=== PATIENT | female | born 1935 | race Caucasian/White ===

== ENCOUNTER → 2020-07-11 10:00 | Outpatient (BNV) | payer MEDICARE, SELFPAY | PROVIDERS: PCP Internal Medicine; Visit Provider Internal Medicine | DX: D47.3 Essential (hemorrhagic) thrombocythemia (principal) | CPT/HCPCS: 99213; 99214; G2211 ==

== ENCOUNTER 2020-12-14 15:17 | Outpatient (REF) | payer MEDICARE, SELFPAY ==
--- NOTE | ~2020-12-14 | US_ITS ---
EXAMINATION: US VENOUS ULTRASOUND WITH DOPPLER LOWER EXTREMITY, LEFT CLINICAL INFORMATION: Left leg swelling COMPARISON: None TECHNIQUE: Ultrasound of the deep veins is performed from the hip to the calf with compression sonography and color and pulse Doppler assessment. Spectral analysis with color-flow imaging is performed. FINDINGS: There is normal venous compression and respiratory variation and augmented flow. The visualized common femoral vein, superficial femoral vein, profunda femoral vein, popliteal vein, and the trifurcation region shows no evidence of deep venous thrombosis. There is a 2.8 x 1.2 x 2.2 cm significant popliteal fossa cyst. US/US venous duplex LE LT IMPRESSION: No DVT demonstrated in the left lower extremity. Small Carlson's cyst.
== END 2020-12-14 15:18 | disposition home or self-care (01) ==
LOC: HO.US 15:17
PROVIDERS: PCP Internal Medicine; Visit Provider Internal Medicine
DX: M79.89 Other specified soft tissue disorders (principal)
CPT/HCPCS: 93971

== ENCOUNTER 2021-01-29 11:55 | Outpatient (REF) | payer MEDICARE, SELFPAY ==
--- NOTE | ~2021-01-29 | MM_ITS ---
EXAMINATION: MM SCREENING DIGITAL BREAST TOMOSYNTHESIS, BILATERAL CLINICAL INFORMATION: Screening. Asymptomatic. The lifetime risk of breast cancer based on the Tyrer-Cuzick Model is under 2%. COMPARISON: Mammography: 01/24/2020, 10/25/2018, 10/22/2017 TECHNIQUE: Digital breast tomosynthesis is performed in both the craniocaudal and mediolateral oblique views along with computer-aided detection (CAD). Synthesized 2D images are generated from the tomosynthesis. FINDINGS: There are scattered areas of fibroglandular density (ACR BI-RADS breast composition Category b). Parenchymal pattern is similar to prior studies. There is no interval mass or architectural abnormality or abnormal calcifications. Again, there are multiple bilateral ductal secretory calcifications as well as scattered round and vascular calcifications. There is chronic bilateral nipple retraction. The axilla are unremarkable. There are no significant changes from prior studies. MM/MM tomosynthesis screening BI IMPRESSION: No mammographic evidence of malignancy. ASSESSMENT: BI-RADS 2: Benign RECOMMENDATION: Routine annual mammography screening. This patient's information was entered into a reminder system with a target due date for their next mammogram.
== END 2021-01-29 11:56 | disposition home or self-care (01) ==
LOC: HO.MAMMO 11:55
PROVIDERS: Visit Provider Internal Medicine
DX: Z12.31 Encounter for screening mammogram for malignant neoplasm of breast (principal)
CPT/HCPCS: 77063; 77067

== ENCOUNTER 2022-02-03 11:03 | Outpatient (REF) | payer MEDICARE, SELFPAY ==
--- NOTE | ~2022-02-03 | MM_ITS ---
EXAMINATION: MM SCREENING DIGITAL BREAST TOMOSYNTHESIS, BILATERAL CLINICAL INFORMATION: Screening. Asymptomatic. The lifetime risk of breast cancer based on the Tyrer-Cuzick Model is 1%. COMPARISON: Mammography: 01/29/2021, 01/24/2020, 10/25/2018, 10/22/2017 TECHNIQUE: Digital breast tomosynthesis is performed in both the craniocaudal and mediolateral oblique views along with computer-aided detection (CAD). Synthesized 2D images are generated from the tomosynthesis. FINDINGS: There are scattered areas of fibroglandular density (ACR BI-RADS breast composition Category b). There are no significant masses, abnormal calcifications, or other abnormalities. Again, there are scattered bilateral ductal secretory, vascular, and some round calcifications. There is chronic mild bilateral nipple retraction. No significant changes from prior studies. MM/MM tomosynthesis screening BI IMPRESSION: No mammographic evidence of malignancy. ASSESSMENT: BI-RADS 2: Benign RECOMMENDATION: Routine annual mammography screening. This patient's information was entered into a reminder system with a target due date for their next mammogram.
== END 2022-02-03 11:04 | disposition home or self-care (01) ==
LOC: HO.MAMMO 11:03
PROVIDERS: PCP Internal Medicine; Visit Provider Internal Medicine
DX: Z12.31 Encounter for screening mammogram for malignant neoplasm of breast (principal)
CPT/HCPCS: 77063; 77067

== ENCOUNTER 2022-03-05 10:21 | Outpatient (REF) | payer MEDICARE, SELFPAY ==
--- NOTE | ~2022-03-05 | MM_ITS ---
EXAMINATION: BONE DENSITOMETRY CLINICAL INDICATION: Osteoporosis. COMPARISON: Baseline BD dated 07/18/2019. TECHNIQUE: Using a [employer]Matcher DXA System (software version: 13.1) manufactured by [employer], dual-energy x-ray absorptiometry was performed of the lumbar spine and left hip. The images are of good technical quality. Summary results are attached. FINDINGS: AP SPINE L3-L4 (excluding L1 and L2): The data of L1-L4 has been changed to exclude the L1 and L2 vertebral bodies, because degenerative changes at these levels may cause overestimation of lumbar spine density. Current: BMD 1.147 g/cm2, Z-score 1.1, T-score -0.4, normal, 1.9% increase from baseline (<5% change is not significant). Baseline: BMD 1.126 g/cm2. LEFT FEMUR, NECK: Current: BMD 0.814 g/cm2, Z-score 0.5, T-score -1.6, osteopenia. Baseline: BMD 0.794 g/cm2. LEFT FEMUR, TOTAL: Current: BMD 0.890 g/cm2, Z-score 1.1, T-score -0.9, normal, 1.7% increase from baseline (<5% change is not significant). Baseline: BMD 0.875 g/cm2. IDENTIFIED RISK FACTORS: Osteoporosis, recurrent falls, menopause. HISTORY OF FRACTURE: None listed. MEDICATIONS: Calcium supplements or multivitamin, vitamin D, bisphosphonates. MM/XR DEXA axial skeleton IMPRESSION: 1. DIAGNOSIS: Osteopenia based on the lowest T-score value of -1.6 in the femoral neck applying World Health Organization criteria. 2. 10-YEAR FRACTURE RISK PREDICTION, FRAX: Not performed in this patient on estrogen or bone building treatments. 3. Treatment Recommendations: NOF guidelines recommend consideration for treatment in postmenopausal women and men age 50 and older presenting with the following: -A hip or vertebral (clinical or morphometric) fracture. -T-score less than or equal to -2.5 at the femoral neck or spine after appropriate evaluation to exclude secondary causes. -Low bone mass at the hip or spine and a 10-year fracture probability by FRAX of greater than or equal to 3% for hip fracture or greater than or equal to 20% for major osteoporotic fracture based on the [place] adapted WHO algorithm. 4. Other Recommendations: All treatment decisions require clinical judgment and consideration of individual patient factors, including patient preferences, comorbidities, previous drug use, risk factors not captured in the FRAX model (e.g. frailty, falls, vitamin D deficiency, increased bone turnover, interval significant decline in bone density) and possible under or overestimation of fracture risk by FRAX. Additional medical evaluation for secondary cause of low bone mineral density may be appropriate. FUTURE SCAN RECOMMENDATION: People with diagnosed cases of osteoporosis or at high risk for fracture should have regular bone mineral density tests. For patients eligible for Medicare, routine testing is allowed once every 2 years. The testing frequency can be increased to one year for patients who have rapidly progressing disease, those who are receiving or discontinuing medical therapy to restore bone mass, or have additional risk factors.
== END 2022-03-05 10:22 | disposition home or self-care (01) ==
LOC: HO.MAMMO 10:21
PROVIDERS: PCP Internal Medicine; Visit Provider Internal Medicine
DX: Z13.820 Encounter for screening for osteoporosis (principal); M81.0 Age-related osteoporosis without current pathological fracture; Z78.0 Asymptomatic menopausal state
CPT/HCPCS: 77080

== ENCOUNTER 2022-03-16 13:17 | Emergency (ER) | payer MEDICARE, SELFPAY ==
--- NOTE | ~2022-03-16 | CT_ITS ---
EXAMINATION: CT CERVICAL SPINE WITHOUT CONTRAST CLINICAL INFORMATION: Head and neck pain status post fall COMPARISON: January 20, 2019 TECHNIQUE: CT scan of the cervical spine without intrathecal contrast. Sagittal and coronal reconstructions. This CT examination was performed using dose optimization techniques as appropriate, variously including the following: *Automated exposure control *Adjustment of mA and/or kV according to patient size (this includes techniques or standardized protocols for targeted exams where dose is matched to indication/reason for exam; i.e. extremities or head) *Use of iterative reconstruction technique DLP: 275.94 mGy-cm FINDINGS: No abnormal prevertebral soft tissue swelling is seen. The paraspinal muscle fat planes are maintained. No acute cervical spine fracture is evident. There is significant degenerative disc disease seen C3-C7 with disc space narrowing and marginal sclerosis and spurring as well as some spurring of the joints of [place] with some mild anterior neural foraminal encroachment seen at the C4-C5, C5-C6, and C6-C7 levels on the right and C3-C7 levels on the left. Prominent carotid artery calcification present bilaterally. Emphysematous change noted lung apices. Pterygoid plates intact. Temporomandibular joints intact. Visualized mastoid air cells well aerated. CT/CT cervical spine wo IV con IMPRESSION: Cervical spondylosis as described above without evidence of acute fracture Fleischner guidelines were followed.
--- NOTE | ~2022-03-16 | CT_ITS ---
EXAMINATION: CT FACIAL BONES WITHOUT CONTRAST CLINICAL INFORMATION: Trauma to right orbit with pain status post fall COMPARISON: January 20, 2019 TECHNIQUE: CT facial bones with coronal and sagittal reconstructions. This CT examination was performed using dose optimization techniques as appropriate, variously including the following: *Automated exposure control *Adjustment of mA and/or kV according to patient size (this includes techniques or standardized protocols for targeted exams where dose is matched to indication/reason for exam; i.e. extremities or head) *Use of iterative reconstruction technique DLP: 1338 mGy-cm FINDINGS: There is a right maxillary hematoma. There is a right orbital floor blowout fracture present with disruption of the orbital floor approximately 8 mm in width and width inferior displacement of the most inferior aspect of medial displacement of fragments of approximately 6 mm. Orbital fat is seen herniated through the floor defect in the inferior rectus muscle is directly adjacent to the fracture site and I am suspicious of possible entrapment. There is bowing of the lateral wall of the right ethmoid sinuses/medial wall of the maxillary sinus but without fluid within the ethmoid sinuses and I cannot tell if there is a definite nondisplaced fracture or not. I do not appreciate a ruptured globe. There is some right extraconal fat streaking present. There is some fat streaking seen about the inferior rectus muscle. There is chronic opacification of the left mastoid sinus. Pterygoid plates and temporomandibular joints unremarkable. Frontal and sphenoid sinuses unremarkable. Left ethmoid and sphenoid sinuses unremarkable. Nasal bones and maxillary spine intact. Ostiomeatal complex is patent. CT/CT facial bones wo IV con IMPRESSION: Right orbital floor blowout fracture as described. Question entrapped right inferior rectus muscle..
--- NOTE | ~2022-03-16 | CT_ITS ---
EXAMINATION: CT HEAD WITHOUT CONTRAST CLINICAL INFORMATION: Head and neck pain after fall COMPARISON: January 20, 2019 TECHNIQUE: Contiguous axial imaging was performed from the skull base to vertex without intravenous administration of contrast. This CT examination was performed using dose optimization techniques as appropriate, variously including the following: *Automated exposure control *Adjustment of mA and/or kV according to patient size (this includes techniques or standardized protocols for targeted exams where dose is matched to indication/reason for exam; i.e. extremities or head) *Use of iterative reconstruction technique DLP: 670.81 mGy-cm FINDINGS: No intracranial hemorrhage identified. No significant mass effect or midline structure shift. No abnormal extra-axial fluid collection. Ventricles, sulci, and cisterns unremarkable. Wilson-white matter interface maintained. There is a right orbital floor blowout fracture present which will be described in detail on facial bone study. There is opacification of the left maxillary sinus without orbital fracture appreciated. Mastoid air cells are aerated. Pterygoid plates intact. Temporomandibular joints intact. CT/CT head/brain wo IV con IMPRESSION: No acute intracranial pathology. Right orbital floor fracture.
[2022-03-16 13:19] VITALS: BP 150/51; PULSE 71; RESP 18; TEMP 36.6; O2SAT 98; BMI 27.4
--- NOTE | 2022-03-16 13:27 | ED_ITS ---
HPI - Fall General Chief Complaint: Head Injury Stated Complaint: Fall/Facial inj/ Time Seen by Provider: 03/16/22 13:26 Source: patient Mode of arrival: ambulatory Limitations: no limitations History of Present Illness HPI Narrative: 86 yo female with hx of HTN, takes a baby asa, hx of thrombocytosis on hydroxurea, HTN, HLD here with c/o trip and fall at home hit head and R side of face on stairs, no LOC. c/o pain and nausea. Just happened prior to arrival. complaint: fall Onset (ago): minute(s) (just prior to arrival) Fall from: standing Fall witnessed: no Place fall occurred: home Loss of consciousness: none Prolonged down time: no Symptoms prior to fall: none Context: tripped/slipped Location of injury: head and face Severity: severe Quality: aching Associated symptoms (after fall): headache Related Data Home Medications Medication Instructions Recorded Confirmed aspirin 81 mg tablet,delayed 81 mg PO DAILY 07/11/20 12/04/21 release calcium carbonate 600 mg-vitamin 1 tab PO DAILY 07/11/20 12/04/21 D3 10 mcg (400 unit) tablet (Calcium with Vitamin D) docosahexaenoic acid (dha)-epa 1 cap PO BID 07/11/20 12/04/21 capsule enalapril maleate 5 mg tablet 20 mg PO DAILY 07/11/20 12/04/21 latanoprost 0.005 % eye drops 1 drp ophthalmic (eye) BEDTIME 07/11/20 12/04/21 multivitamin 1 tab PO DAILY 07/11/20 12/04/21 pravastatin 40 mg tablet 1 tab PO DAILY 07/11/20 12/04/21 alendronate 70 mg tablet 70 mg PO QWEEK 01/09/21 12/04/21 amlodipine 5 mg tablet 1 tab PO DAILY 12/04/21 12/04/21 Previous Rx's Medication Instructions Recorded hydroxyurea 500 mg capsule 1 cap PO DAILY #90 caps 01/16/21 amoxicillin 500 mg-potassium 1 tab PO BID 7 days #14 tabs 03/16/22 clavulanate 125 mg tablet (Augmentin) hydrocodone 5 mg-acetaminophen 325 1 tab PO Q6H PRN pain #10 tabs 03/16/22 mg tablet ondansetron 4 mg disintegrating 4 mg PO Q8H PRN nausea and 03/16/22 tablet vomiting #20 tabs Allergies Allergy/AdvReac Type Severity Reaction Status Date / Time hydromorphone [From DILAUDID] Allergy Intermediate ITCHY ALL Verified 07/29/21 11:01 OVER Review of Systems Review of Systems: Constitutional : No Fever, No Chills, No Fatigue ENT/Mouth : No sore throat, No Rhinorrhea Eyes: pos Eye Pain, No Swelling, No Redness Cardiovascular : No Chest Pain, No SOB, No Dyspnea on Exertion Respiratory : No Cough, No Sputum Gastrointestinal : No Nausea, No Vomiting, No Diarrhea, No abdominal Pain Genitourinary : No Dysuria, No Urinary Frequency, No Hematuria, Musculoskeletal : No joint pain, No Myalgias, No Joint Swelling Skin : No Skin Lesions, No rash Neuro : No Weakness, No Numbness, No Dizziness, positive Headache Psych : No Anxiety/Panic, No Depression Heme/Lymph: No Bruising, No Bleeding,No Lymphadenopathy Endocrine : No Polyuria, No Polydipsia All other systems reviewed and are negative [facility] Past Medical History Attestation statement: The following information was validated with the patient. Medical History Chronic dermatitis Dyslipidemia Glaucoma HTN (hypertension) Thrombocytopenia Surgical History History of bilateral knee replacement Hx of partial nephrectomy Family History Family History Mother Breast cancer Brother Alzheimers disease Son Stroke Rectal adenocarcinoma Social History Social History Household Members: Spouse and None Housing: House Alcohol intake: former Patient Tobacco Use Status: Never used Tobacco Advance Directives: Yes Advance Directives Information Provided: Yes Advance Directives on File: No service: No Current occupational status: retired Physical Exam Vital Signs: Vital Signs: Last Vital Signs Temp 98 F 03/16/22 13:19 Pulse 71 03/16/22 13:19 Resp 18 03/16/22 13:19 BP 150/51 H 03/16/22 13:19 Pulse Ox 98 03/16/22 13:19 BMI result Body Mass Index 27.4 Appearance: Alert. Oriented X3. No acute distress. anxious Eyes: Pupils equal, round and reactive to light. R eye moderate subconj hemorrhage, cannot look superiorly on EOM testing states when she does she sees double, no chemosis, states vision is intact can see light, no hyphema noted large hematoma R periorbital area abrasion R upper eyelid - superficial slit 1cm noted, bleeding controlled ENT: Pharynx normal. Neck: Normal inspection. Neck supple. refusing collar CVS: Normal heart rate and rhythm. Pulses normal. Chest: atraumatic Respiratory: No respiratory distress. Breath sounds normal. Abdomen: Soft and non-tender. Skin: Skin warm and dry. Normal skin color. Normal skin turgor. Extremities: No lower extremity edema. No calf ttp no pain to palpation Neuro: Oriented X 3. No motor deficit. No sensory deficit. Course Course Course Narrative: has no neck pain wants collar off states it is making things worse exam concerning for blowout fracture with clinical entrapment will discuss with ophthalmology if we can manage this here. she is NPO since 10am. Dr. Kurtz consulted recommends check pressures, US for retinal detachment, if pressures normal even with blowout fracture and clinical entrapment as long as she is not having double vision looking straight on can have it fixed in 1 week. IPO 05/10/[address] findings [address] Dr. Kurtz recommends follow up in 1 week - patient and family aware of plan, repeat BMP pending. Will sign out to Leonardo DE LEON pending PO challenge, BMP, ambulatory trial family is going to stay with patient Procedures Procedure Narrative Procedure Narrative: bedside US - no retinal detachment seen MDM - Fall MDM Narrative Medical decision making narrative: 86 yo female with hx of HTN, takes a baby asa, hx of thrombocytosis on hydroxurea, HTN, HLD here with c/o R facial injury and head injury after mechanical fall at this time will obtain CT head/facial/cspine, Concern for clinical entrapment as well. Will need glue on superficial linear slit. Dispo per results and findings. Lab Data Result diagrams: 03/16/22 14:25 03/16/22 14:25 Labs: Lab Results 03/16/22 03/16/22 Range/Units 14:25 14:25 WBC 12.6 H (4.8-10.8) X10*3/uL RBC 4.15 L (4.20-5.50) X10*6/uL Hgb 14.0 (12.0-16.0) g/dl Hct 41.9 (37.0-47.0) % MCV 101.0 H (80.0-98.0) fL MCH 33.7 H (27.0-33.0) pg MCHC 33.4 (31.0-35.0) g/dl RDW 12.8 (11.0-16.0) % Plt Count 313 (160-400) X10*3/uL MPV 12.2 (9.4-12.3) fL Immature Gran % (Auto) 0.6 H (0.0-0.4) % Neut % (Auto) 88.6 H (45-73) % Lymph % (Auto) 7.5 L (20-40) % [place] % (Auto) 2.4 (2-11) % Eos % (Auto) 0.5 (0-4) % Baso % (Auto) 0.4 (0-2) % Lymph # (Auto) 0.9 L (1.2-4.9) X10*3/uL [place] # (Auto) 0.3 (0.1-1.2) X10*3/uL Eos # (Auto) 0.1 (0.0-0.4) X10*3/uL Baso # (Auto) 0.1 (0.0-0.2) X10*3/uL Abs Immat Gran (auto) 0.07 H (0.00-0.03) X10*3/uL Absolute Neuts (auto) 11.1 H (2.0-8.3) x10*3/uL Absolute Nucleated RBC 0.000 (0.0-0.012) X10*3/uL Nucleated RBC % (auto) 0.0 (0.0-0.2) /100WBC Sodium 140 (135-145) mmol/L Potassium 5.4 H (3.3-5.1) mmol/L Chloride 112 H (96-108) mmol/L Carbon Dioxide 13 L (22-29) mmol/L Anion Gap 20 (12-20) BUN 31 H D (9-16) mg/dL Creatinine 1.27 (0.5-1.4) mg/dL Estim Creat Clear Calc 29.8 Estimated GFR 40 Random Glucose 116 H (60-115) mg/dL Calcium 9.4 (8.4-10.2) mg/dL Discharge Plan Discharge Clinical Impression: Blow-out fracture of orbital floor, Subconjunctival hemorrhage, Abrasion, Entrapment of extraocular muscle Patient Disposition: Still a Patient Instructions: Facial Fracture (ED), Subconjunctival Hemorrhage (ED) Additional Instructions: return to ED for any worsening symptoms or concerns, stay with family the next 4 days EYE PRESSURE 17/18 YOU NEED TO SEE YOUR EYE DOCTOR THIS WEEK IF YOU CANNOT PLEASE SEE OUR EYE DOCTOR IN [address] KURTZ [phone] LOCATED AT [address] - YOU WILL REQUIRE SURGERY FOR THIS NO NOSE BLOWING, NO BENDING FORWARD, NO STRAINING UNTIL CLEARED TAKE A PROBIOTIC OVER THE COUNTER WHILE ON ANTIBIOTIC FINDINGS: There is a right maxillary hematoma. There is a right orbital floor blowout fracture present with disruption of the orbital floor approximately 8 mm in width and width inferior displacement of the most inferior aspect of medial displacement of fragments of approximately 6 mm. Orbital fat is seen herniated through the floor defect in the inferior rectus muscle is directly adjacent to the fracture site and I am suspicious of possible entrapment. There is bowing of the lateral wall of the right ethmoid sinuses/medial wall of the maxillary sinus but without fluid within the ethmoid sinuses and I cannot tell if there is a definite nondisplaced fracture or not. I do not appreciate a ruptured globe. There is some right extraconal fat streaking present. There is some fat streaking seen about the inferior rectus muscle. There is chronic opacification of the left mastoid sinus. Pterygoid plates and temporomandibular joints unremarkable. Frontal and sphenoid sinuses unremarkable. Left ethmoid and sphenoid sinuses unremarkable. Nasal bones and maxillary spine intact. Ostiomeatal complex is patent. CT/CT facial bones wo IV con IMPRESSION: Right orbital floor blowout fracture as described. ? Question entrapped right inferior rectus muscle.. Prescriptions: New amoxicillin-pot clavulanate [Augmentin] 500-125 mg tablet 1 tab PO BID 7 Days Qty: 14 0RF ondansetron 4 mg tablet,disintegrating 4 mg PO Q8H PRN (Reason: nausea and vomiting) Qty: 20 0RF hydrocodone-acetaminophen 5-325 mg tablet 1 tab PO Q6H PRN (Reason: pain) Qty: 10 0RF Rx Instructions: partial fill okay; Partial Fill upon patient request. No Action multivitamin Tablet 1 tab PO DAILY latanoprost 0.005 % drops 1 drp ophthalmic (eye) BEDTIME enalapril maleate 5 mg tablet 20 mg PO DAILY pravastatin 40 mg tablet 1 tab PO DAILY aspirin [Aspir-81] 81 mg Tablet,Delayed Release (Dr/Ec) 81 mg PO DAILY Fish Oil (with DHA-EPA) Capsule 1 cap PO BID calcium carbonate-vitamin D3 [Calcium with Vitamin D] 600 mg(1,500mg) -400 unit Tablet 1 tab PO DAILY alendronate 70 mg Tablet 70 mg PO QWEEK hydroxyurea 500 mg capsule 1 cap PO DAILY Qty: 90 3RF amlodipine 5 mg tablet 1 tab PO DAILY Referrals: Josias Kurtz [Physician] - 1 week (IF YOU CANNOT SEE YOUR EYE DOCTOR)
[2022-03-16 14:30] LABS: MANUAL DIFF FLAG NO
[2022-03-16 14:31] LABS: Basophils Absolute Auto 0.1 X10*3/uL (0.0-0.2); Basophils Percent Auto 0.4 % (0-2); Eosinophils Absolute Auto 0.1 X10*3/uL (0.0-0.4); Eosinophils Percent Auto 0.5 % (0-4); Hematocrit 41.9 % (37.0-47.0); Imm Gran Abs Auto 0.07 X10*3/uL (0.00-0.03); Imm Gran Pct Auto 0.6 % (0.0-0.4); Lymphocytes Absolute Auto 0.9 X10*3/uL (1.2-4.9); Lymphocytes Percent Auto 7.5 % (20-40); Mean Corpuscular HGB Conc 33.4 g/dl (31.0-35.0); Mean Corpuscular Hemoglobin 33.7 pg (27.0-33.0); Mean Platelet Volume 12.2 fL (9.4-12.3); Monocytes Absolute Auto 0.3 X10*3/uL (0.1-1.2); Monocytes Percent Auto 2.4 % (2-11); Neutrophils Absolute Auto 11.1 x10*3/uL (2.0-8.3); Neutrophils Percent Auto 88.6 % (45-73); Platelet Count 313 X10*3/uL (160-400); Red Blood Count 4.15 X10*6/uL (4.20-5.50); Red Cell Distribution Width 12.8 % (11.0-16.0); White Blood Count 12.6 X10*3/uL (4.8-10.8)
[2022-03-16] MEDS: ondansetron HCL 4 MG/2 ML VIAL IVPUSH (14:31)
[2022-03-16] MEDS: Morphine Sulfate 2 MG/ML CARTRIDGE IVPUSH (14:31)
[2022-03-16] MEDS: Tetracaine HCl/PF 0.5% Oph Sol 4 ML DROPS 1 DROP EYE-RIGHT (14:35)
[2022-03-16 15:21] LABS: Anion Gap 20 (12-20); Blood Urea Nitrogen 31 mg/dL (9-16); Calcium 9.4 mg/dL (8.4-10.2); Carbon Dioxide 13 mmol/L (22-29); Chloride 112 mmol/L (96-108); Creatinine Clr Calc Pharmacy 29.8; Estimated Glomerular Filt Rate 40; Glucose Random 116 mg/dL (60-115); Potassium 5.4 mmol/L (3.3-5.1); Sodium 140 mmol/L (135-145)
--- NOTE | 2022-03-16 17:16 | PC.NURSE ---
pt oob to BR with assist of 1 d/t limited vision in right eye. pt walked with steady gait, able to toilet self independently. Walked back to room w/o dizziness, pt back in bed resting comfortably call davis within reach
--- NOTE | 2022-03-16 17:47 | PC.NURSE ---
spoke with pt re: discharge plan- sts that her HCP, Marilynn (st bedside) will be staying with pt overnight for the next 2 nights. educated pt on the importance of not straining for any reason until evaluated by eye including bowel movements, encouraged pt to use colace to soften stool, pt verbalizes understanding. pt alert and oriented, drinking star inés, no c/o nausea/dizziness
[2022-03-16 17:50] LABS: Anion Gap 21 (12-20); Blood Urea Nitrogen 30 mg/dL (9-16); Calcium 8.9 mg/dL (8.4-10.2); Carbon Dioxide 9 mmol/L (22-29); Chloride 113 mmol/L (96-108); Creatinine Clr Calc Pharmacy 32.3; Estimated Glomerular Filt Rate 44; Glucose Random 114 mg/dL (60-115); Potassium 5.3 mmol/L (3.3-5.1); Sodium 138 mmol/L (135-145)
[2022-03-16] MEDS: 0.9 % Sodium Chloride 1,000 ML 999 ML IV ×2 (18:23→21:02)
[2022-03-16 18:32] LABS: C Reactive Protein 0.05 mg/dL (< or = 0.50)
[2022-03-16 19:14] LABS: Venous Blood Gas Refer to POC result
[2022-03-16 19:17] LABS: VBG Base Excess -5.2 mmol/L; VBG HCO3 19 mmol/L (22-26); VBG pCO2 35 mmHg; VBG pH 7.34 (7.32-7.43); VBG pO2 37 mmHg
[2022-03-16 19:26] LABS: Lactic Acid 1.1 mmol/L (0.5-2.0)
[2022-03-16 19:30] LABS: Anion Gap 17 (12-20); Blood Urea Nitrogen 27 mg/dL (9-16); Calcium 9.5 mg/dL (8.4-10.2); Carbon Dioxide 19 mmol/L (22-29); Chloride 110 mmol/L (96-108); Creatinine Clr Calc Pharmacy 31.5; Estimated Glomerular Filt Rate 43; Glucose Random 142 mg/dL (60-115); Potassium 4.9 mmol/L (3.3-5.1); Sodium 141 mmol/L (135-145)
[2022-03-16 19:46] VITALS: BP 151/43; PULSE 78; TEMP 36.7; O2SAT 94
== END 2022-03-16 21:04 | disposition home or self-care (01) ==
PROVIDERS: Internal Medicine; Emergency Provider Emergency Medicine; PCP Internal Medicine
DX: S02.31XA Fracture of orbital floor, right side, initial encounter for closed fracture (principal); S00.81XA Abrasion of other part of head, initial encounter; H11.31 Conjunctival hemorrhage, right eye; M79.10 Myalgia, unspecified site; R51.9 Headache, unspecified; M54.2 Cervicalgia; W01.0XXA Fall on same level from slipping, tripping and stumbling without subsequent striking against object, initial encounter; Y93.9 Activity, unspecified; Y92.9 Unspecified place or not applicable; Y99.9 Unspecified external cause status; Z79.899 Other long term (current) drug therapy
CPT/HCPCS: 36415; 70450; 70486; 72125; 80048; 82803; 83605; 85025; 86140; 96374; 99283; 99284; J0690; J2270; J2405

== ENCOUNTER 2023-02-04 09:35 | Outpatient (REF) | payer MEDICARE, SELFPAY ==
[2023-02-04 12:46] LABS: Anion Gap 12 (12-20); Blood Urea Nitrogen 21 mg/dL (9-16); Calcium 10.2 mg/dL (8.4-10.2); Carbon Dioxide 26 mmol/L (22-29); Chloride 103 mmol/L (96-108); Estimated Glomerular Filt Rate > 60; Glucose Random 68 mg/dL (60-115); Potassium 4.2 mmol/L (3.3-5.1); Sodium 137 mmol/L (135-145)
[2023-02-04 12:50] LABS: Creatinine Urine 43.95 mg/dL; Microalbum/Creatinine Ratio Ur 45.5 ug/mg cr (<30)
== END 2023-02-04 09:36 | disposition home or self-care (01) ==
LOC: HO.HHCL 09:35
PROVIDERS: Visit Provider Internal Medicine Geriatric Medicine
DX: I12.9 Hypertensive chronic kidney disease with stage 1 through stage 4 chronic kidney disease, or unspecified chronic kidney disease (principal); N18.31 Chronic kidney disease, stage 3a; C44.311 Basal cell carcinoma of skin of nose
CPT/HCPCS: 36415; 80048; 82043; 82570

== ENCOUNTER 2023-02-09 11:02 | Outpatient (REF) | payer MEDICARE, SELFPAY ==
--- NOTE | ~2023-02-09 | MM_ITS ---
EXAMINATION: MM SCREENING DIGITAL BREAST TOMOSYNTHESIS, BILATERAL CLINICAL INFORMATION: Screening. Asymptomatic. COMPARISON: Mammography: 02/03/2022, 01/29/2021, 01/24/2020, 10/25/2018, 10/22/2017 TECHNIQUE: Digital breast tomosynthesis is performed in both the craniocaudal and mediolateral oblique views along with computer-aided detection (CAD). Synthesized 2D images are generated from the tomosynthesis. In addition to standard views, a nipple in profile 3-D right MLO projection was included. FINDINGS: There are scattered areas of fibroglandular density (ACR BI-RADS breast composition Category b). There are both vascular and extensive secretory calcifications in both breasts. Inversion of both nipples is again noted which appears chronic. There are no skin changes. There are no suspicious masses, suspicious grouped calcifications, or areas of architectural distortion in either breast. The parenchymal pattern is stable from prior exams. MM/MM tomosynthesis screening BI IMPRESSION: No mammographic evidence of malignancy. Stable benign findings as detailed. ASSESSMENT: BI-RADS BI-RADS 2 - Benign Findings RECOMMENDATION: Routine annual mammography screening. 1 year F/U This examination should not preclude the clinical evaluation of a suspicious palpable abnormality. This patient's information was entered into a reminder system with a target due date for their next mammogram.
== END 2023-02-09 11:03 | disposition home or self-care (01) ==
LOC: HO.MAMMO 11:02
PROVIDERS: PCP Internal Medicine Geriatric Medicine; Visit Provider Internal Medicine
DX: Z12.31 Encounter for screening mammogram for malignant neoplasm of breast (principal)
CPT/HCPCS: 77063; 77067

== ENCOUNTER → 2023-02-09 11:15 | Outpatient (BNV) | payer MEDICARE, SELFPAY | PROVIDERS: PCP Internal Medicine Geriatric Medicine; Visit Provider Radiology Diagnostic Radiology | DX: Z12.31 Encounter for screening mammogram for malignant neoplasm of breast (principal) | CPT/HCPCS: 77063; 77067 ==

== ENCOUNTER 2023-08-25 09:46 | Outpatient (REF) | payer MEDICARE, SELFPAY ==
[2023-08-25 13:07] LABS: Hemoglobin 13.7 g/dl (12.0-16.0)
[2023-08-25 13:09] LABS: Basophils Absolute Auto 0.1 X10*3/uL (0.0-0.2); Basophils Percent Auto 0.8 % (0-2); Eosinophils Absolute Auto 0.1 X10*3/uL (0.0-0.4); Eosinophils Percent Auto 1.4 % (0-4); Hematocrit 41.5 % (37.0-47.0); Imm Gran Abs Auto 0.24 X10*3/uL (0.00-0.03); Imm Gran Pct Auto 2.6 % (0.0-0.4); Lymphocytes Absolute Auto 1.4 X10*3/uL (1.2-4.9); Lymphocytes Percent Auto 14.9 % (20-40); Mean Corpuscular Hemoglobin 32.5 pg (27.0-33.0); Mean Corpuscular Volume 98.6 fL (80.0-98.0); Monocytes Absolute Auto 0.3 X10*3/uL (0.1-1.2); Monocytes Percent Auto 3.7 % (2-11); Neutrophils Percent Auto 76.6 % (45-73); Platelet Count 230 X10*3/uL (160-400); Red Blood Count 4.21 X10*6/uL (4.20-5.50); Red Cell Distribution Width 14.3 % (11.0-16.0); White Blood Count 9.2 X10*3/uL (4.8-10.8)
[2023-08-25 13:54] LABS: Alanine Aminotransferase 15 U/L (0-31); Albumin Level 4.3 g/dL (3.5-5.0); Alkaline Phosphatase 38 U/L (39-117); Anion Gap 8 (12-20); Aspartate Amino Transferase 19 U/L (5-31); Bilirubin Total 0.5 mg/dL (0.0-1.0); Blood Urea Nitrogen 19 mg/dL (9-16); Calcium 9.3 mg/dL (8.4-10.2); Carbon Dioxide 27 mmol/L (22-29); Chloride 110 mmol/L (96-108); Cholesterol 122 mg/dL (<200); Estimated Glomerular Filt Rate > 60; Glucose Random 83 mg/dL (60-115); HDL Cholesterol 32 mg/dL (>40); LDL Cholesterol Calculated 65 mg/dL (<100); Potassium 4.4 mmol/L (3.3-5.1); Sodium 141 mmol/L (135-145); Total Protein 6.6 g/dL (6.5-8.0); Triglycerides 128 mg/dL (<150)
== END 2023-08-25 09:47 | disposition home or self-care (01) ==
LOC: HO.HHCL 09:46
PROVIDERS: Visit Provider Internal Medicine Geriatric Medicine
DX: I10 Essential (primary) hypertension (principal); D47.3 Essential (hemorrhagic) thrombocythemia
CPT/HCPCS: 36415; 80053; 80061; 85025

== ENCOUNTER 2023-10-09 19:56 | Inpatient (IN) | payer MEDICARE, SELFPAY ==
--- NOTE | ~2023-10-09 | XR_ITS ---
EXAMINATION: XR CHEST CLINICAL INFORMATION: Weakness. COMPARISON: None available. TECHNIQUE: Frontal view of the chest was obtained. FINDINGS: The lung volumes are low. The cardiomediastinal silhouette is within normal limits. There is no focal lung consolidation or pleural effusion. 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 The soft tissues are unremarkable. XR/XR chest 1V IMPRESSION: Low lung volumes. No acute pulmonary disease.
--- NOTE | ~2023-10-09 | CT_ITS ---
EXAMINATION: CT HEAD WITHOUT CONTRAST CT CERVICAL SPINE WITHOUT CONTRAST CLINICAL INFORMATION: Fall. COMPARISON: CT head and cervical spine March 16, 2022 TECHNIQUE: Imaging was performed from the skull base to vertex without intravenous administration of contrast. In addition, helical noncontrast CT imaging was acquired through the cervical spine and source images were reviewed along with axial reconstructions and sagittal and coronal MPRs. [This CT examination was performed using dose optimization techniques as appropriate, variously including the following: *Automated exposure control *Adjustment of mA and/or kV according to patient size (this includes techniques or standardized protocols for targeted exams where dose is matched to indication/reason for exam; i.e. extremities or head) *Use of iterative reconstruction technique] DLP: 1012 mGy-cm FINDINGS: HEAD: No intracranial mass, hemorrhage, or midline shift is visualized. The ventricles and sulci are proportional. No extra-axial collections are identified. Left maxillary sinus nearly entirely opacified. There is thickening of the wall of the left maxillary sinus consistent with a chronic sinusitis disease. Mastoid air cells and middle ear cavities are normally aerated. CERVICAL SPINE: There is no evidence of acute cervical spine fracture. Vertebral bodies remain normal in height. Cervical vertebrae have normal alignment. There is multilevel degenerative spondylosis of the cervical spine with disc height narrowing and endplate spurs and facet joint arthrosis Vascular calcification of the carotid arteries bilaterally. Limited assessment of the lung apices is unremarkable. CT/CT cervical spine wo IV con IMPRESSION: 1. No acute intracranial pathology. 2. No CT evidence of acute cervical spine fracture or traumatic subluxation.
--- NOTE | ~2023-10-09 | CT_ITS ---
EXAMINATION: CT HEAD WITHOUT CONTRAST CT CERVICAL SPINE WITHOUT CONTRAST CLINICAL INFORMATION: Fall. COMPARISON: CT head and cervical spine March 16, 2022 TECHNIQUE: Imaging was performed from the skull base to vertex without intravenous administration of contrast. In addition, helical noncontrast CT imaging was acquired through the cervical spine and source images were reviewed along with axial reconstructions and sagittal and coronal MPRs. [This CT examination was performed using dose optimization techniques as appropriate, variously including the following: *Automated exposure control *Adjustment of mA and/or kV according to patient size (this includes techniques or standardized protocols for targeted exams where dose is matched to indication/reason for exam; i.e. extremities or head) *Use of iterative reconstruction technique] DLP: 1012 mGy-cm FINDINGS: HEAD: No intracranial mass, hemorrhage, or midline shift is visualized. The ventricles and sulci are proportional. No extra-axial collections are identified. Left maxillary sinus nearly entirely opacified. There is thickening of the wall of the left maxillary sinus consistent with a chronic sinusitis disease. Mastoid air cells and middle ear cavities are normally aerated. CERVICAL SPINE: There is no evidence of acute cervical spine fracture. Vertebral bodies remain normal in height. Cervical vertebrae have normal alignment. There is multilevel degenerative spondylosis of the cervical spine with disc height narrowing and endplate spurs and facet joint arthrosis Vascular calcification of the carotid arteries bilaterally. Limited assessment of the lung apices is unremarkable. CT/CT head/brain wo IV con IMPRESSION: 1. No acute intracranial pathology. 2. No CT evidence of acute cervical spine fracture or traumatic subluxation.
[2023-10-09 20:10] VITALS: BP 132/64; BP 140/70; PULSE 81; PULSE 85; RESP 18; TEMP 36.6; O2SAT 96; O2SAT 97; BMI 27.3
--- NOTE | 2023-10-09 20:13 | ECG_ITS ---
Test Reason : fall Blood Pressure : / mmHG Vent. Rate : 080 BPM Atrial Rate : 080 BPM P-R Int : 156 ms QRS Dur : 154 ms QT Int : 438 ms P-R-T Axes : 054 -28 095 degrees QTc Int : 505 ms Normal sinus rhythm Left bundle branch block Abnormal ECG No previous ECGs available Referred By: Davon Spencer Electronically Signed By:JOEY KAUR MD
--- NOTE | 2023-10-09 20:40 | ED_ITS ---
HPI - General Adult General Chief complaint: Fall Stated complaint: fall out of bed last night, found this evening Time Seen by Provider: 10/09/23 20:12 Source: patient, RN notes reviewed and old records reviewed Mode of arrival: EMS Limitations: no limitations History of Present Illness HPI narrative: 88-year-old female presents for evaluation after being found on the ground. The patient reports falling tonight within the last few hours Per EMS, the patient last spoke to family about 24 hours ago EMS states that none of her family or friends were able to reach her all day today and therefore a wellness check was called The patient was found on the ground next to her bed EMS believes the patient was on the ground for about 24 hours but it is unclear as the patient contradicts this story She arrives covered in stool She complains of bilateral knee pain which is chronic. She reports a history of bilateral knee replacements Denies any injury or trauma from the fall She has not sure exactly how she fell but believes it may be related to her chronic knee pain Related Data Home Medications ?Medication ?Instructions ?Recorded ?Confirmed aspirin 81 mg tablet,delayed 81 mg PO DAILY 07/11/20 05/06/23 release calcium carbonate 600 mg-vitamin 1 tab PO DAILY 07/11/20 05/06/23 D3 10 mcg (400 unit) tablet (Calcium with Vitamin D) docosahexaenoic acid (dha)-epa 1 cap PO BID 07/11/20 05/06/23 capsule latanoprost 0.005 % eye drops 1 drp ophthalmic (eye) BEDTIME 07/11/20 05/06/23 multivitamin 1 tab PO DAILY 07/11/20 05/06/23 pravastatin 40 mg tablet 1 tab PO DAILY 07/11/20 05/06/23 alendronate 70 mg tablet 70 mg PO QWEEK 01/09/21 05/06/23 amlodipine 5 mg tablet 10 tab PO DAILY 12/04/21 05/06/23 losartan 50 mg tablet 50 mg PO DAILY 11/05/22 05/06/23 Previous Rx's ?Medication ?Instructions ?Recorded amoxicillin 500 mg-potassium 1 tab PO BID 7 days #14 tabs 03/16/22 clavulanate 125 mg tablet (Augmentin) hydrocodone 5 mg-acetaminophen 325 1 tab PO Q6H PRN pain #10 tabs 03/16/22 mg tablet hydroxyurea 500 mg capsule 1 cap PO DAILY #90 caps 03/26/22 Allergies Allergy/AdvReac Type Severity Reaction Status Date / Time hydromorphone [From DILAUDID] Allergy Intermediate ITCHY ALL Verified 10/09/23 20:22 OVER Review of Systems 2 Constitutional: Constitutional: Denies body ache(s), Denies chills and Denies fever(s) Eyes: Eyes: Denies blurry vision ENT: Denies sore throat Cardiovascular: Cardiovascular: Denies chest pain and Denies dyspnea Respiratory: Respiratory: Denies cough and Denies dyspnea Gastrointestinal: Gastrointestinal: Denies abdominal pain, Denies nausea and Denies vomiting Genitourinary: Genitourinary: Denies difficulty voiding and Denies dysuria Musculoskeletal: Musculoskeletal: Denies back pain, Reports arthralgias, Denies joint swelling and Denies limited range of motion Integumentary/Breasts: Skin/Breast: Denies rash PMFSH Past Medical History Medical History (Updated 10/10/23 @ 01:05 by Davon Spencer) Chronic kidney disease, stage III (moderate) Dyslipidemia Glaucoma HTN (hypertension) Chronic dermatitis Thrombocytopenia Surgical History Hx of partial nephrectomy History of bilateral knee replacement Family History Family History Mother Breast cancer Brother Alzheimers disease Son Stroke Rectal adenocarcinoma Social History Social History Household Members: Spouse and None Housing: House Alcohol intake: former Patient Tobacco Use Status: Never used Tobacco Smoked in Last 30 Days: No Use of substances other than those prescribed or required for medical reasons: No Advance Directives: No Advance Directives Information Provided: No service: No Current occupational status: retired Physical Exam ED Vital Signs: Vital Signs - 24 hr 10/09/23 20:10 10/09/23 22:15 10/09/23 22:50 Temperature 97.9 F 98.5 F Pulse Rate 81 84 81 Respiratory Rate 18 18 Blood Pressure 132/64 144/66 H 135/52 L Pulse Oximetry 96 99 Oxygen Delivery Method Room Air Room Air BMI result Body Mass Index 27.3 Const General: healthy appearing, comfortable, no acute distress, alert and awake Nutritional Appearance: well nourished HENME Head: Yes normocephalic and Yes atraumatic Eyes Eyelids: Yes eyelids normal Conjunctivae: conjunctivae normal Sclerae: sclerae normal Corneas: corneas normal Pupils: Equal, round and reactive pupils present EOM: EOMs intact bilaterally Neck Neck: Yes full ROM Resp Effort & Inspection: normal respiratory effort, able to speak in complete sentences, no audible wheezes and not labored Auscultation: clear to auscultation bilaterally Cardio Rate: regular rate Rhythm: regular rhythm GI Inspection: No distended Palpation (GI): Soft to palpation, not firm, nontender, no guarding and not rigid Back/Spine/Pelvis Cervical Spine: collar present, No Cervical spine tenderness, No step off deformity and No cervical ROM abnormal Skin General skin exam: elasticity normal Neuro Cranial nerves: Yes CN's II-XII intact bilaterally, Yes Equal, round and reactive pupils present and Yes Bilaterally intact EOM present Cognition (Neuro): normal cognition Extrem Other: Patient has surgical scars to the bilateral knees. No significant erythema, edema or wounds. She has no tenderness with manipulation of the hips bilaterally. She is able to flex and extend the lower extremities bilaterally without any pain Course Reevaluation(s) Reevaluation #1: Received critical from the lab the patient's troponin is elevated to 2412. I immediately re-evaluated the patient, she continues to deny any chest pain, shortness of breath or any other discomfort outside of her knees. I ordered a repeat EKG. I ordered a full-dose aspirin. Will discuss with Cardiology. Likely plan to start heparin and admit the patient. Time: 21:51 Reevaluation #2: Discussed with Dr. Keating you recommend starting heparin drip, agrees with aspirin and recommend starting beta-deng and statin. I ordered the heparin, aspirin, metoprolol and atorvastatin. I ordered a repeat troponin the patient will likely be admitted to the medical service Time: 21:55 Medications Administered Generic Name Dose Route Start Last Admin Trade Name Freq PRN Reason Stop Dose Admin Heparin Sodium/Sodium Chloride 25,000 unit in 250 mls @ 0 mls/hr 10/09/23 22:00 10/09/23 23:25 Heparin Sodium,Porcine/1/2ns IVCONT 12 units/kg/hr .Q0M KRISTIE 8.14 mls/hr Administration Protocol Per Protocol Discontinued Medications Generic Name Dose Route Start Last Admin Trade Name Freq PRN Reason Stop Dose Admin Aspirin 324 mg 10/09/23 21:42 10/09/23 22:15 Aspirin 81 Mg Tab.Chew PO 10/09/23 21:43 324 mg ONCE ONE Administration Atorvastatin Calcium 80 mg 10/09/23 21:53 10/09/23 22:16 Atorvastatin Calcium 80 Mg Tablet PO 10/09/23 21:54 80 mg ONCE ONE Administration Heparin Sodium (Porcine) 4,000 unit 10/09/23 23:39 10/09/23 23:59 Heparin Sodium,Porcine 5,000 Unit/Ml Vial IVPUSH 10/09/23 23:40 4,000 unit ONCE ONE Administration Ceftriaxone Sodium 1 gm/ 50 mls @ 100 mls/hr 10/10/23 00:24 10/10/23 00:45 Sodium Chloride IV 10/10/23 00:53 100 mls/hr ONCE ONE Administration Metoprolol Succinate 25 mg 10/09/23 21:53 10/09/23 22:15 Metoprolol Succinate Er 25 Mg Tab.Er.24h PO 10/09/23 21:54 25 mg ONCE ONE Administration Protocol Medical Decision Making Medical Decision Making MDM Narrative: 88-year-old female presents for evaluation after a fall. It is believed that she was on the ground for over 24 hours as nobody was able to get in touch with her today. She reports only falling today but it is unclear how reliable her history is. Plan for medical workup including labs with CPK, EKG, CT brain, cervical spine. Will get a UA as well. Differential Diagnosis Differential Diagnoses: The differential diagnosis associated with the presentation includes Mechanical fall Metabolic encephalopathy UTI Intracranial hemorrhage Cervical fracture Cervical strain Rhabdomyolysis Admission/Observation Consideration of admission/observation: Escalation of care including admission/observation considered Consult Healthcare Provider Management of the patient was discussed with: System Auditor (Dr. Keating, cardiology) Lab Data 10/09/23 20:41 10/09/23 20:41 Labs: Lab Results 10/09/23 10/09/23 10/09/23 Range/Units 20:20 20:41 23:41 WBC 23.5 H (4.8-10.8) X10*3/uL RBC 4.45 (4.20-5.50) X10*6/uL Hgb 14.8 (12.0-16.0) g/dl Hct 42.7 (37.0-47.0) % MCV 96.0 (80.0-98.0) fL MCH 33.3 H (27.0-33.0) pg MCHC 34.7 (31.0-35.0) g/dl RDW 14.3 (11.0-16.0) % Plt Count 357 D (160-400) X10*3/uL MPV 13.0 H (9.4-12.3) fL Immature Gran % (Auto) 2.2 H (0.0-0.4) % Neut % (Auto) 90.3 H (45-73) % Lymph % (Auto) 4.8 L (20-40) % [place] % (Auto) 2.0 (2-11) % Eos % (Auto) 0.2 (0-4) % Baso % (Auto) 0.5 (0-2) % Lymph # (Auto) 1.1 L (1.2-4.9) X10*3/uL [place] # (Auto) 0.5 (0.1-1.2) X10*3/uL Eos # (Auto) 0.0 (0.0-0.4) X10*3/uL Baso # (Auto) 0.1 (0.0-0.2) X10*3/uL Abs Immat Gran (auto) 0.51 H (0.00-0.03) X10*3/uL Absolute Neuts (auto) 21.3 H (2.0-8.3) x10*3/uL Absolute Nucleated RBC 0.000 (0.0-0.012) X10*3/uL Nucleated RBC % (auto) 0.0 (0.0-0.2) /100WBC Smear Tech's Comments VERIFIED PT 12.1 (11.1-13.3) SEC INR 1.0 (0.9-1.1) APTT 35.6 (26.0-36.8) SEC Sodium 145 (135-145) mmol/L Potassium 4.5 (3.3-5.1) mmol/L Chloride 109 H (96-108) mmol/L Carbon Dioxide 21 L (22-29) mmol/L Anion Gap 20 (12-20) BUN 25 H (9-16) mg/dL Creatinine 1.10 (0.5-1.4) mg/dL Estim Creat Clear Calc 33.1 Estimated GFR 47 POC Glucose 171 H (60-115) mg/dL Random Glucose 176 H (60-115) mg/dL Calcium 9.8 (8.4-10.2) mg/dL Total Bilirubin 0.6 (0.0-1.0) mg/dL AST 32 H (5-31) U/L ALT 20 (0-31) U/L Alkaline Phosphatase 43 (39-117) U/L Total Creatine Kinase 165 H (26-140) U/L Troponin I High Sens 2412.2 H* 3228.9 H* (<3.5-17.0) ng/L Total Protein 7.1 (6.5-8.0) g/dL Albumin 4.6 (3.5-5.0) g/dL Lipase 9 (8-78) U/L Urine Color Urine Appearance Urine pH (5.0-9.0) Ur Specific [place] (1.005-1.025) Urine Protein (Neg-Trace) mg/dL Urine Glucose (UA) (Negative) mg/dL Urine Ketones (Negative) mg/dL Urine Blood (Negative) Urine Nitrite (Negative) Ur Leukocyte Esterase (Negative) Urine RBC (0-2) /HPF Urine WBC (0-5) /HPF Urine WBC Clumps Ur Squamous Epith Cells (0-2) /HPF Urine Bacteria (None Seen) Hyaline Casts (0-2) /LPF 10/09/23 Range/Units 23:57 WBC (4.8-10.8) X10*3/uL RBC (4.20-5.50) X10*6/uL Hgb (12.0-16.0) g/dl Hct (37.0-47.0) % MCV (80.0-98.0) fL MCH (27.0-33.0) pg MCHC (31.0-35.0) g/dl RDW (11.0-16.0) % Plt Count (160-400) X10*3/uL MPV (9.4-12.3) fL Immature Gran % (Auto) (0.0-0.4) % Neut % (Auto) (45-73) % Lymph % (Auto) (20-40) % [place] % (Auto) (2-11) % Eos % (Auto) (0-4) % Baso % (Auto) (0-2) % Lymph # (Auto) (1.2-4.9) X10*3/uL [place] # (Auto) (0.1-1.2) X10*3/uL Eos # (Auto) (0.0-0.4) X10*3/uL Baso # (Auto) (0.0-0.2) X10*3/uL Abs Immat Gran (auto) (0.00-0.03) X10*3/uL Absolute Neuts (auto) (2.0-8.3) x10*3/uL Absolute Nucleated RBC (0.0-0.012) X10*3/uL Nucleated RBC % (auto) (0.0-0.2) /100WBC Smear Tech's Comments PT (11.1-13.3) SEC INR (0.9-1.1) APTT (26.0-36.8) SEC Sodium (135-145) mmol/L Potassium (3.3-5.1) mmol/L Chloride (96-108) mmol/L Carbon Dioxide (22-29) mmol/L Anion Gap (12-20) BUN (9-16) mg/dL Creatinine (0.5-1.4) mg/dL Estim Creat Clear Calc Estimated GFR POC Glucose (60-115) mg/dL Random Glucose (60-115) mg/dL Calcium (8.4-10.2) mg/dL Total Bilirubin (0.0-1.0) mg/dL AST (5-31) U/L ALT (0-31) U/L Alkaline Phosphatase (39-117) U/L Total Creatine Kinase (26-140) U/L Troponin I High Sens (<3.5-17.0) ng/L Total Protein (6.5-8.0) g/dL Albumin (3.5-5.0) g/dL Lipase (8-78) U/L Urine Color Yellow Urine Appearance Turbid Urine pH 5.5 (5.0-9.0) Ur Specific [place] 1.020 (1.005-1.025) Urine Protein 30 (1+) H (Neg-Trace) mg/dL Urine Glucose (UA) Negative (Negative) mg/dL Urine Ketones 40 (Negative) mg/dL Urine Blood Trace H (Negative) Urine Nitrite Positive H (Negative) Ur Leukocyte Esterase Large (3+) H (Negative) Urine RBC 0-2 (0-2) /HPF Urine WBC >50 H (0-5) /HPF Urine WBC Clumps Present Ur Squamous Epith Cells 0-2 (0-2) /HPF Urine Bacteria 4+ (None Seen) Hyaline Casts 6-10 (0-2) /LPF Independent Interpretation I performed an independent interpretation of an: EKG Interpretation: Sinus rhythm with a rate of 80 beats per minute. Left bundle branch block. No previous for comparison Discharge Plan Discharge Clinical Impression: Fall, Non-ST elevation UT (NSTEMI), Urinary tract infection Patient Disposition: Admitted As Inpatient Print Language: [place]
[2023-10-09 20:54] LABS: Basophils Absolute Auto 0.1 X10*3/uL (0.0-0.2); Basophils Percent Auto 0.5 % (0-2); Eosinophils Percent Auto 0.2 % (0-4); Hematocrit 42.7 % (37.0-47.0); Hemoglobin 14.8 g/dl (12.0-16.0); Imm Gran Abs Auto 0.51 X10*3/uL (0.00-0.03); Imm Gran Pct Auto 2.2 % (0.0-0.4); Lymphocytes Absolute Auto 1.1 X10*3/uL (1.2-4.9); Lymphocytes Percent Auto 4.8 % (20-40); MANUAL DIFF FLAG SCAN; Mean Corpuscular HGB Conc 34.7 g/dl (31.0-35.0); Mean Corpuscular Hemoglobin 33.3 pg (27.0-33.0); Monocytes Absolute Auto 0.5 X10*3/uL (0.1-1.2); Neutrophils Absolute Auto 21.3 x10*3/uL (2.0-8.3); Neutrophils Percent Auto 90.3 % (45-73); Platelet Count 357 X10*3/uL (160-400); Red Blood Count 4.45 X10*6/uL (4.20-5.50); Red Cell Distribution Width 14.3 % (11.0-16.0); SCAN SMEAR FLAG 1
[2023-10-09 21:03] LABS: Prothrombin Time 12.1 SEC (11.1-13.3)
[2023-10-09 21:11] LABS: Alanine Aminotransferase 20 U/L (0-31); Albumin Level 4.6 g/dL (3.5-5.0); Alkaline Phosphatase 43 U/L (39-117); Anion Gap 20 (12-20); Aspartate Amino Transferase 32 U/L (5-31); Bilirubin Total 0.6 mg/dL (0.0-1.0); Blood Urea Nitrogen 25 mg/dL (9-16); Calcium 9.8 mg/dL (8.4-10.2); Carbon Dioxide 21 mmol/L (22-29); Chloride 109 mmol/L (96-108); Creatinine Clr Calc Pharmacy 33.1; Estimated Glomerular Filt Rate 47; Glucose Random 176 mg/dL (60-115); Lipase 9 U/L (8-78); Potassium 4.5 mmol/L (3.3-5.1); Sodium 145 mmol/L (135-145); Total Protein 7.1 g/dL (6.5-8.0)
[2023-10-09 21:23] LABS: Glucose, Whole Blood 171 mg/dL (60-115)
[2023-10-09 21:24] LABS: SLIDE REVIEW VERIFIED; White Blood Count 23.5 X10*3/uL (4.8-10.8)
--- NOTE | 2023-10-09 21:42 | ECG_ITS ---
Test Reason : Elevated troponin Blood Pressure : / mmHG Vent. Rate : 083 BPM Atrial Rate : 083 BPM P-R Int : 162 ms QRS Dur : 156 ms QT Int : 424 ms P-R-T Axes : 062 -33 096 degrees QTc Int : 498 ms Normal sinus rhythm Left axis deviation Left bundle branch block Abnormal ECG When compared with ECG of 09-OCT-2023 20:29, No significant change was found Referred By: Davon Spencer Electronically Signed By:JOEY KAUR MD
[2023-10-09 22:15] VITALS: BP 144/66; PULSE 84
[2023-10-09] MEDS: Metoprolol Succinate ER 25 MG TAB.ER.24H PO (22:15)
[2023-10-09] MEDS: Aspirin 81 MG TAB.CHEW 324 MG PO (22:15)
[2023-10-09] MEDS: Atorvastatin Calcium 80 MG TABLET PO (22:16)
[2023-10-09 22:50] VITALS: BP 135/52; PULSE 81; RESP 18; TEMP 36.9; O2SAT 99
[2023-10-09 22:55] LABS: Partial Thromboplastin Time 35.6 SEC (26.0-36.8)
[2023-10-09] MEDS: Heparin Sodium,Porcine/1/2NS 25,000 UNIT/250 ML IV.SOLN 8.14 UNIT IVCONT (23:25)
[2023-10-09] MEDS: Heparin Sodium,Porcine 5,000 UNIT/ML VIAL 4000 UNIT IVPUSH (23:59)
[2023-10-10] VITALS (11 sets, daily range): BP systolic 117–139; BP diastolic 45–64; PULSE 68–81; RESP 17–22; TEMP 36.6–36.9; O2SAT 95–100
--- NOTE | 2023-10-10 | ECG_ITS ---
Test Reason : Repeat Chest Pressure Blood Pressure : / mmHG Vent. Rate : 069 BPM Atrial Rate : 069 BPM P-R Int : 174 ms QRS Dur : 172 ms QT Int : 512 ms P-R-T Axes : 074 -17 101 degrees QTc Int : 548 ms Normal sinus rhythm Left bundle branch block Abnormal ECG When compared with ECG of 10-OCT-2023 05:26, QT has lengthened Referred By: Megha Ervin Electronically Signed By:JOEY KAUR MD
--- NOTE | 2023-10-10 | ECG_ITS ---
Test Reason : chest pain Blood Pressure : / mmHG Vent. Rate : 074 BPM Atrial Rate : 074 BPM P-R Int : 180 ms QRS Dur : 164 ms QT Int : 436 ms P-R-T Axes : 074 -30 114 degrees QTc Int : 483 ms Normal sinus rhythm Left axis deviation Left bundle branch block Abnormal ECG When compared with ECG of 09-OCT-2023 22:10, No significant change was found Referred By: Iris Santos Electronically Signed By:JOEY KAUR MD
[2023-10-10 00:11] LABS: Appearance Urine Turbid; Color Urine Yellow; Glucose Urine UA Negative (Negative); Leukocyte Esterase Urine Large (3+) (Negative); Nitrite Urine Positive (Negative); PH 5.5 (5.0-9.0); UMIC TRIGGER UACC YES; Urine Blood Trace (Negative); Urine Ketones 40 mg/dL (Negative); Urine Protein 30 (1+) mg/dL (Neg-Trace)
[2023-10-10 00:21] LABS: Bacteria Urine 4+ (None Seen); RBC Urine 0-2 /HPF (0-2); Squamous Epithelial Cell Urine 0-2 /HPF (0-2); UACC Culture Trigger YES; WBC Clumps Urine Present; WBC Urine >50 /HPF (0-5)
[2023-10-10] MEDS: cefTRIAXone sodium 1 GM in 0.9 % Sodium Chloride 50 ML IV ×2 (00:45→20:32)
--- NOTE | 2023-10-10 01:47 | P.HPHOSP_ITS ---
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 by her neighbor. It seems like patient's findings and friends were unable to reach patient and her neighbor who has a coronel to her house checked on her. Patient does not recall falling down and denies any symptoms such as dizziness, headache, chest pain or shortness on breath. She also denied any headache, palpitations, cough, fevers chills. Denied any acute gastrointestinal or genitourinary symptoms. No head trauma reported. She does have some chronic pain to both knees. Patient denies history of cardiac disease, myocardial infarction or arrhythmias. She does not remember ever being told if her ECGs are abnormal. In the ED, she was found to normal vital signs. Blood workup showed leukocytosis of 23.5. There is no lactic acidosis. Hemoglobin is 14.8 and platelets level is 357. There are no significant electrolyte imbalances except for hyperchloremia. Bicarb is 21 and creatinine 1.10. First troponin came back positive, 2412.2 and the 2nd was increased to 3228.9. AST is 32 and the rest of the LFTs are normal. Urinalysis consistent with urinary tract infection. Head CT scan C-spine showed no acute intracranial abnormality or fractures. CXR showed low lung volumes and no acute pulmonary disease. ECGs are consistent with left bundle branch block. ED tx: Heparin bolus and IV infusion, ceftriaxone 1 g IV, atorvastatin 81 mg PO, metoprolol 25 mg PO and aspirin 324 mg PO. Review of Systems 2 Review of Systems: Yes all other systems are reviewed and are negative [facility] Medical History (Updated 10/10/23 @ 02:57 by Iris Santos MD) Chronic kidney disease, stage III (moderate) Dyslipidemia Glaucoma HTN (hypertension) Chronic dermatitis Thrombocytopenia Family History Mother Breast cancer Brother Alzheimers disease Son Stroke Rectal adenocarcinoma Surgical History Hx of partial nephrectomy History of bilateral knee replacement Social History Household Members: Spouse and None Housing: House Alcohol intake: former Patient Tobacco Use Status: Never used Tobacco Smoked in Last 30 Days: No Use of substances other than those prescribed or required for medical reasons: No Advance Directives: No Advance Directives Information Provided: No service: No Current occupational status: retired Meds Allergies Allergy/AdvReac Type Severity Reaction Status Date / Time hydromorphone [From DILAUDID] Allergy Intermediate ITCHY ALL Verified 10/09/23 20:22 OVER Active Medications: Current Medications Acetaminophen (Acetaminophen 325 Mg Tablet) 650 mg PO Q6H PRN PRN Reason: mild pain, headache or fever Aspirin (Aspirin Enteric Coated 81 Mg Tablet.Dr) 81 mg PO DAILY KRISTIE Atorvastatin Calcium (Atorvastatin Calcium 80 Mg Tablet) 80 mg PO BEDTIME [facility] Heparin Sodium (Porcine) (Heparin Sodium,Porcine 5,000 Unit/Ml Vial) 2,700 unit 40 unit/kg (2700 unit) IVPUSH PROTOCOL BOLUS PRN; Protocol PRN Reason: 40 unit/kg - Heparin Protocol Heparin Sodium (Porcine) (Heparin Sodium,Porcine 5,000 Unit/Ml Vial) 5,400 unit 80 unit/kg (5400 unit) IVPUSH PROTOCOL BOLUS PRN; Protocol PRN Reason: 80 unit/kg - Heparin Protocol Heparin Sodium/Sodium Chloride (Heparin Sodium,Porcine/1/2ns) 25,000 unit in 250 mls @ 0 mls/hr IVCONT .Q0M [facility]; Protocol Last Admin: 10/09/23 23:25 Dose: 12 units/kg/hr, 8.14 mls/hr Sodium Chloride (0.9 % Sodium Chloride Flush 3 Ml Syringe) 3 ml IVFLUSH QSHIFT [facility] Home Medications ?Medication ?Instructions ?Recorded ?Confirmed ?Last Taken ?Type aspirin 81 mg tablet,delayed 81 mg PO DAILY 07/11/20 05/06/23 Unknown History release calcium carbonate 600 mg-vitamin 1 tab PO DAILY 07/11/20 05/06/23 Unknown History D3 10 mcg (400 unit) tablet (Calcium with Vitamin D) docosahexaenoic acid (dha)-epa 1 cap PO BID 07/11/20 05/06/23 Unknown History capsule latanoprost 0.005 % eye drops 1 drp ophthalmic (eye) BEDTIME 02/17/21 12/13/23 Unknown History multivitamin 1 tab PO DAILY 07/11/20 05/06/23 Unknown History pravastatin 40 mg tablet 1 tab PO DAILY 07/11/20 05/06/23 Unknown History alendronate 70 mg tablet 70 mg PO QWEEK 01/09/21 05/06/23 Unknown History amlodipine 5 mg tablet 10 tab PO DAILY 12/04/21 05/06/23 Unknown History losartan 50 mg tablet 50 mg PO DAILY 11/05/22 05/06/23 Unknown History Physical Exam 2 Vital Signs and Narrative: Vital Signs: Last Vital Signs Temp 98.5 F 10/10/23 01:07 Pulse 81 10/10/23 01:07 Resp 20 10/10/23 01:07 BP 128/62 10/10/23 01:07 Pulse Ox 97 10/10/23 01:07 O2 Del Method Room Air 10/10/23 01:07 BMI result Body Mass Index 27.3 Constitutional - Awake and Alert, No apparent distress. Cooperative. Pleasant. HEENT - Atraumatic. Normacephalic. Normal sclerae. Heart - S1S2, RRR. Lungs - Normal lung expansion, Normal respiratory effort, No respiratory distress, CTA bilaterally Abdomen - NT / ND; +BS; No rebound or guarding Extremities - no calf tenderness bilaterally, no swelling Musculoskeletal - Normal inspection, normal ROM Skin - Warm/Dry Neurological - Alert & oriented x3. No facial droop. No focal with grossly noted. Normal speech. Psychological - Appropriate affect Results Labs 10/09/23 20:41 10/09/23 20:41 Labs: Laboratory Results - last 24 hr 10/09/23 10/09/23 10/09/23 20:20 20:41 23:41 MCV 96.0 MCH 33.3 H MCHC 34.7 RDW 14.3 Plt Count 357 D MPV 13.0 H Immature Gran % (Auto) 2.2 H Neut % (Auto) 90.3 H Lymph % (Auto) 4.8 L Treasure % (Auto) 2.0 Eos % (Auto) 0.2 Baso % (Auto) 0.5 Lymph # (Auto) 1.1 L Treasure # (Auto) 0.5 Eos # (Auto) 0.0 Baso # (Auto) 0.1 Abs Immat Gran (auto) 0.51 H Absolute Neuts (auto) 21.3 H Absolute Nucleated RBC 0.000 Nucleated RBC % (auto) 0.0 Smear Tech's Comments VERIFIED PT 12.1 INR 1.0 APTT 35.6 Anion Gap 20 Estim Creat Clear Calc 33.1 Estimated GFR 47 POC Glucose 171 H Random Glucose 176 H Calcium 9.8 Total Bilirubin 0.6 AST 32 H ALT 20 Alkaline Phosphatase 43 Total Creatine Kinase 165 H Troponin I High Sens 2412.2 H* 3228.9 H* Total Protein 7.1 Albumin 4.6 Lipase 9 Urine Color Urine Appearance Urine pH Ur Specific [place] Urine Protein Urine Glucose (UA) Urine Ketones Urine Blood Urine Nitrite Ur Leukocyte Esterase Urine RBC Urine WBC Urine WBC Clumps Ur Squamous Epith Cells Urine Bacteria Hyaline Casts 10/09/23 23:57 MCV MCH MCHC RDW Plt Count MPV Immature Gran % (Auto) Neut % (Auto) Lymph % (Auto) Treasure % (Auto) Eos % (Auto) Baso % (Auto) Lymph # (Auto) Treasure # (Auto) Eos # (Auto) Baso # (Auto) Abs Immat Gran (auto) Absolute Neuts (auto) Absolute Nucleated RBC Nucleated RBC % (auto) Smear Tech's Comments PT INR APTT Anion Gap Estim Creat Clear Calc Estimated GFR POC Glucose Random Glucose Calcium Total Bilirubin AST ALT Alkaline Phosphatase Total Creatine Kinase Troponin I High Sens Total Protein Albumin Lipase Urine Color Yellow Urine Appearance Turbid Urine pH 5.5 Ur Specific [place] 1.020 Urine Protein 30 (1+) H Urine Glucose (UA) Negative Urine Ketones 40 Urine Blood Trace H Urine Nitrite Positive H Ur Leukocyte Esterase Large (3+) H Urine RBC 0-2 Urine WBC >50 H Urine WBC Clumps Present Ur Squamous Epith Cells 0-2 Urine Bacteria 4+ Hyaline Casts 6-10 Imaging Radiologist's Impressions: Impressions Cervical Spine CT 10/09/23 20:58 IMPRESSION: 1. No acute intracranial pathology. 2. No CT evidence of acute cervical spine fracture or traumatic subluxation. Head CT 10/09/23 20:58 IMPRESSION: 1. No acute intracranial pathology. 2. No CT evidence of acute cervical spine fracture or traumatic subluxation. Chest X-Ray 10/09/23 21:56 IMPRESSION: Low lung volumes. No acute pulmonary disease. Assessment and Plan (1) Urinary tract infection: Qualifiers: Urinary tract infection type: acute cystitis Hematuria presence: w ithout hematuria Qualified Code(s): N30.00 - Acute cystitis without hematuria Status: Acute (2) Essential thrombocytosis: Status: Chronic (3) ACS (acute coronary syndrome): Status: Acute (4) Chronic kidney disease, stage III (moderate): Qualifiers: Chronic kidney disease stage 3 subtype: stage 3a (GFR 45-59) Qualified Code(s): N18.31 - Chronic kidney disease, stage 3a Status: Acute (5) Dyslipidemia: Status: Acute (6) HTN (hypertension): Qualifiers: Hypertension type: primary hypertension Qualified Code(s): I10 - Essential (primary) hypertension Status: Acute Plan Debbie Tavarez is a 88 y/o woman admitted with: * Acute coronary syndrome. Admit to hospitalist service. Telemetry. Continue tx with ASA 81 mg p.o. daily, metoprolol and high-intensity statin. Continue heparin IV infusion per protocol. Cardiology consult - disscuss with Dr. Keating per ED provider recommending admission, heparin, aspirin and beta blockers. * LBBB. No old ECGs available for comparison. No chest pain. * Urinary tract infection. Continue ceftriaxone 1 g IV daily. Urine culture obtained -will follow results. * Hyperlipidemia. Continue statin. * CKD stage 3A. Continue to monitor renal function. * Essential hypertension. Continue metoprolol. * Essential thrombocytosis. Continue hydroxyurea. Code status: Full DVT prophylaxis: Heparin IV infusion Patient will need hospitalization for at least 2 midnights for ACS therapy with aspirin, heparin IV infusion, statin and beta blockers; and evaluation by subspecialty. Quality Stroke Does the patient have a stroke diagnosis?: No VTE Prior VTE?: No VTE Risk Level:: Medical - moderate - high VTE Device Contraindication: Treatment Not Indicated VTE Drug Contraindication: N/A - Med Ordered
[2023-10-10 02:11] LABS: Lactic Acid 1.3 mmol/L (0.5-2.0)
[2023-10-10 03:55] LABS: B Type Natriuretic Peptide 1615 pg/mL (<100)
[2023-10-10] MEDS: Nitroglycerin 0.4 MG TAB.SUBL SUBLINGUAL ×3 (05:38→05:49)
--- NOTE | 2023-10-10 05:38 | PC.NURSE ---
Pt woke with pain 10/10 mid sternal. MD Shantanu Santos aware, ordered Nitro SL. Pharmacy yet to Activate, ok to give. Gave 1 dose at 0538.
--- NOTE | 2023-10-10 05:44 | PC.NURSE ---
At 0543, pr remains 10/10 mid sternal chest pain, 2nd dose to be admin per orders.
--- NOTE | 2023-10-10 05:48 | PC.NURSE ---
Pt placed on 2L O2 via NC for mild desaturation to 92%.
--- NOTE | 2023-10-10 05:51 | PC.NURSE ---
pt denying relief after Nitro x 3, MD Shantanu Santos notified.
[2023-10-10 05:55] LABS: INTERNATIONAL NORM RATIO 1.1 (0.9-1.1); Prothrombin Time 12.9 SEC (11.1-13.3)
--- NOTE | 2023-10-10 05:55 | PC.NURSE ---
Pt now tating 5/10 pain after Nitro x 3, MD aware, orders pending.
[2023-10-10] MEDS: Morphine Sulfate 2 MG/ML CARTRIDGE IVPUSH (06:00)
[2023-10-10 06:05] LABS: Alanine Aminotransferase 16 U/L (0-31); Alkaline Phosphatase 40 U/L (39-117); Anion Gap 17 (12-20); Aspartate Amino Transferase 33 U/L (5-31); Bilirubin Total 0.5 mg/dL (0.0-1.0); Blood Urea Nitrogen 27 mg/dL (9-16); Calcium 9.5 mg/dL (8.4-10.2); Carbon Dioxide 19 mmol/L (22-29); Chloride 111 mmol/L (96-108); Cholesterol 114 mg/dL (<200); Creatinine Clr Calc Pharmacy 42.8; Estimated Glomerular Filt Rate > 60; Glucose Random 137 mg/dL (60-115); HDL Cholesterol 27 mg/dL (>40); LDL Cholesterol Calculated 60 mg/dL (<100); Potassium 3.8 mmol/L (3.3-5.1); Sodium 143 mmol/L (135-145); Total Protein 6.2 g/dL (6.5-8.0); Triglycerides 136 mg/dL (<150)
[2023-10-10] MEDS: ondansetron HCL 4 MG/2 ML VIAL IVPUSH (06:06)
[2023-10-10 06:10] LABS: PTT Heparin Drip 118.9 SEC (53-77.9)
[2023-10-10 06:11] LABS: Troponin-I High Sensitivity 2689.2 ng/L (<3.5-17.0)
[2023-10-10 06:52] LABS: Basophils Absolute Auto 0.1 X10*3/uL (0.0-0.2); Basophils Percent Auto 0.2 % (0-2); Eosinophils Percent Auto 0.1 % (0-4); Hematocrit 37.5 % (37.0-47.0); Hemoglobin 12.5 g/dl (12.0-16.0); Imm Gran Pct Auto 1.6 % (0.0-0.4); Lymphocytes Percent Auto 4.1 % (20-40); MANUAL DIFF FLAG SCAN; Mean Corpuscular HGB Conc 33.3 g/dl (31.0-35.0); Mean Corpuscular Hemoglobin 32.1 pg (27.0-33.0); Mean Corpuscular Volume 96.2 fL (80.0-98.0); Monocytes Absolute Auto 0.8 X10*3/uL (0.1-1.2); Monocytes Percent Auto 3.1 % (2-11); Neutrophils Absolute Auto 22.6 x10*3/uL (2.0-8.3); Neutrophils Percent Auto 90.9 % (45-73); Platelet Count 281 X10*3/uL (160-400); Red Cell Distribution Width 14.6 % (11.0-16.0); SCAN SMEAR FLAG 1; White Blood Count 24.9 X10*3/uL (4.8-10.8)
--- NOTE | 2023-10-10 07:00 | CA_ITS ---
Transthoracic Echocardiogram Patient (Last, First, Middle): Debbie Tavarez M Gender: Female Date of : 1935 Age: 88 Procedure Date: 10/10/2023 Procedure Type: Transthoracic Echocardiogram Location: ER Height: 157.48 cm Weight: 67.59 kg BSA: 1.69 m2 Heart Rate: bpm BP: 130 / 61 mmHg High Value Associate: Referring MD: Iris Santos MD Roentgenology Teacher: Juan Keating MD Symptoms: Myocardial infarction Study Quality: Adequate ECG Rhythm: Atrial Fibrillation Conclusions: - 1. Severely reduced LV ejection fraction 25- 30% with grade 2 diastolic dysfunction with suggestion of wall motion abnormality in LAD territory 2. Severely dilated left atrium 3. [id number] mitral regurgitation 4. Moderate tricuspid regurgitation next 5. Moderately elevated right ventricular systolic pressure 6. No gross pericardial effusion Findings Procedure Information Contrast agent, definity, is being given per protocol without apparent complications. Left Ventricle Normal left ventricular cavity size. There is mildly increased left ventricular wall thickness. The left ventricular systolic function is severely decreased. The visually estimated ejection fraction is between 25 30%. Spectral Doppler is indicative of a pseudonormal filling pattern. E/E prime ratio is >15, consistent with elevated filling pressures. Evidence suggests grade II (moderate) diastolic dysfunction. Wall Motion Rest Echo Findings The mid anterior and apical septum segments are hypokinetic. The inferoseptal wall, the apex, apical anterior, and mid anteroseptal segments are akinetic. All other scored wall segments showed normal motion. Atria The left atrium is severely dilated. There is no evidence of interatrial shunt. The right atrium is mildly dilated. Aortic Valve Normal aortic valve structure and function. There is no aortic valve stenosis. There is no aortic valve regurgitation. Mitral Valve There is mild anterior and posterior mitral leaflet thickening. There is mild to moderate mitral valve regurgitation. There is no mitral valve stenosis. Pulmonic Valve The pulmonic valve is likely normal. There is trace pulmonic valve regurgitation. Tricuspid Valve Normal tricuspid valve structure. There is moderate tricuspid valve regurgitation. Mildly elevated right atrial pressure. Moderate pulmonary hypertension is present. Great Vessels The pulmonary artery was not well visualized. There is no dilatation of the ascending aorta. Venous The inferior vena cava is mildly dilated and collapses less than 50% with inspiration. Pericardium/Pleural There is no evidence of pericardial effusion. Prior Study Comparison No prior study available for comparison. Measurements 2D Linear Measurements IVSd: 1.21 0.6-0.9/0.6-1.0 cm LVIDd: 4.29 3.9-5.3/4.2-5.9 cm LVIDd Index: 2.54 2.4-3.2/2.2-3.1 cm/m2 LVIDs: 3.42 2.0-3.6 cm LVPWd: 1.23 0.7-1.1 cm Ao Root: 2.70 2.1-3.5 cm LA Diam: 4.60 2.7-3.8/3.0-4.0 cm LAIDs Index: 2.72 1.5-2.3 cm/m2 LV Mass: 234.90 67-162/88-224 g LV Mass Index: 139.00 43-95/49-115 g/m2 LVOT Diam: 2.00 3.0+(-)1.3 cm 2D Systolic Function EF 4C: 29.40 >55% EF 2C: 32.50 >55% Mitral Valve MV Pk E: 0.86 MV PK A: 0.58 MV Decel Time: 202.00 E/A: 1.50 E'Lateral: 6.09 E'Medial: 3.92 E/E' Med: 22.00 E/E' Lat: 14.10 PHT: 59.00 MVA PHT: 3.73 Decel Page: 4.26 MR Vol - PW Dopp: 46.25 MR VTI: 1.85 MR ERO: 25.00 MR Alias Geoffrey: 0.39 MR RAD: 0.70 Aortic Valve AoV Pk Geoffrey: 1.31 AoV Mn Geoffrey: 0.87 AoV VTI: 0.29 AoV Pk Grad: 7.00 Aov Mn Grad: 4.00 BARB Cont.VTI: 2.81 LVOT LVOT Pk Geoffrey: 1.10 LVOT Mn Geoffrey: 0.72 LVOT VTI: 0.26 LVOT Pk Grad: 5.00 LVOT Mn Grad: 3.00 LVOT Diam: 2.00 LVOT Area: 3.14 Diastolic Function MV Pk E: 0.86 MV Pk A: 0.58 E/A: 1.50 E'Medial: 3.92 E/E' Med: 22.00 E' Laterial: 6.09 E/E' Lat: 14.10 Right Ventricle TAPSE (mm): 20.00 TVS' Geoffrey: 12.00 Tricuspid Valve TR Pk Geoffrey: 3.30 TR Pk Grad: 44.00 RA Press: 8.00 RVSP: 52.00 Great Vessels Aorta Ao Root-2D: 2.70 2.0-3.7 cm Ao Asc: 3.10 2.1-3.4 cm Pulmonary Valve PV Pk Geoffrey: 0.73 Peak PV Grad: 2.00 Updated in Other Vendor System with Status of Final Juan Keating MD electronically signed on 10/10/2023 2:45:59 PM with status of Final
[2023-10-10 07:07] LABS: Estimated Average Glucose 97 mg/dL
[2023-10-10 07:25] LABS: SLIDE REVIEW VERIFIED
[2023-10-10 07:38] LABS: PTT Heparin Drip 64.7 SEC (53-77.9)
--- NOTE | 2023-10-10 08:39 | PHA.MEDREC ---
Pharmacy Consult ? Medication Reconciliation Pharmacy has completed the medication reconciliation. Patient states they take hydroxyurea 500 mg TUTHSA.
[2023-10-10] MEDS: Aspirin Enteric Coated 81 MG TABLET.DR PO (10:33)
[2023-10-10] MEDS: Metoprolol Tartrate 12.5 MG HALFTAB PO ×2 (10:33→20:32)
[2023-10-10] MEDS: 0.9 % Sodium Chloride Flush 3 ML SYRINGE IVFLUSH (10:34)
[2023-10-10 12:04] LABS: Reflex LDLD? No
--- NOTE | 2023-10-10 14:16 | P.CONCA_ITS ---
History of Present Illness History of Present Illness Date of Service: 10/10/23 Requesting physician: Megha Ervin Consult reason: myocardial infarction Chief complaint: Myocardial infarction Narrative: I was consulted to see and in cardiology consultation today for elevated troponin. Patient was brought to the hospital after the family had not heard from her for many hours. She was found on the floor. She says she fell off the bed, says that might have been 1 of her dreams. Although the knee says she has memory issues. She definitely has memory issues very apparent while she has been hospitalized. She is noted to have UTI. Also however her troponin the significantly elevated initially at 24:00 and subsequently rising to 3200. Patient was reported to have chest pain this morning. Was given 2 sublingual nitroglycerin and morphine with resolution of symptoms. She is very uncomfortable but does not complain of any chest pain currently. Denies any other symptoms including shortness of breath. Echocardiogram done at bedside shows severely reduced LV ejection fraction with wall motion abnormality in the LAD territory. 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 BNP is downtrending. She is currently on IV heparin drip. She denies having any prior cardiac issues. She does have a left bundle-branch block which also seems to be in new although this is unclear. She is underlying essential thrombocytosis as well as chronic kidney disease. Review of Systems 2 Review of Systems: Yes Unobtainable due to mental status PMFSH Past Medical History Medical History Chronic kidney disease, stage III (moderate) Dyslipidemia Glaucoma HTN (hypertension) Chronic dermatitis Thrombocytopenia Family History Family History Mother Breast cancer Brother Alzheimers disease Son Stroke Rectal adenocarcinoma Surgical History Surgical History Hx of partial nephrectomy History of bilateral knee replacement Social History Social History Household Members: Spouse and None Housing: House Alcohol intake: former Patient Tobacco Use Status: Never used Tobacco service: No Current occupational status: retired Meds Allergies Allergy/AdvReac Type Severity Reaction Status Date / Time hydromorphone [From DILAUDID] Allergy Intermediate ITCHY ALL Verified 10/09/23 20:22 OVER Active Medications: Current Medications Acetaminophen (Acetaminophen 325 Mg Tablet) 650 mg PO Q6H PRN PRN Reason: mild pain, headache or fever Aspirin (Aspirin Enteric Coated 81 Mg Tablet.) 81 mg PO DAILY [facility] Last Admin: 10/10/23 10:33 Dose: 81 mg Atorvastatin Calcium (Atorvastatin Calcium 80 Mg Tablet) 80 mg PO BEDTIME [facility] Clopidogrel Bisulfate (Clopidogrel Bisulfate 75 Mg Tablet) 75 mg PO DAILY [facility] Heparin Sodium (Porcine) (Heparin Sodium,Porcine 5,000 Unit/Ml Vial) 2,700 unit 40 unit/kg (2700 unit) IVPUSH PROTOCOL BOLUS PRN; Protocol PRN Reason: 40 unit/kg - Heparin Protocol Heparin Sodium (Porcine) (Heparin Sodium,Porcine 5,000 Unit/Ml Vial) 5,400 unit 80 unit/kg (5400 unit) IVPUSH PROTOCOL BOLUS PRN; Protocol PRN Reason: 80 unit/kg - Heparin Protocol Hydroxyurea (Hydroxyurea 500 Mg Capsule) 500 mg PO TUTHSA@0900 [facility] Heparin Sodium/Sodium Chloride (Heparin Sodium,Porcine/1/2ns) 25,000 unit in 250 mls @ 0 mls/hr IVCONT .Q0M [facility]; Protocol Stop: 10/12/23 21:59 Last Titration: 10/10/23 08:24 Dose: 8 units/kg/hr, 5.42 mls/hr Ceftriaxone Sodium 1 gm/ (Sodium Chloride) 50 mls @ 100 mls/hr IV Q24H [facility] Latanoprost (Latanoprost 0.005 % Ophth Kay 2.5 Ml Drops) 1 drop EYE-BOTH BEDTIME [facility] Metoprolol Tartrate (Metoprolol Tartrate 12.5 Mg Halftab) 12.5 mg PO BID [facility]; Protocol Last Admin: 10/10/23 10:33 Dose: 12.5 mg Nitroglycerin (Nitroglycerin 2 % Oint 1 Gm Packet) 0.5 inch TRANSDERMA RQ6H WHILE AWAKE [facility] Sodium Chloride (0.9 % Sodium Chloride Flush 3 Ml Syringe) 3 ml IVFLUSH QSHIFT [facility] Last Admin: 10/10/23 10:34 Dose: 3 ml Home Medications ?Medication ?Instructions ?Recorded ?Confirmed ?Last Taken ?Type aspirin 81 mg tablet,delayed 81 mg PO DAILY 07/11/20 10/10/23 Unknown History release latanoprost 0.005 % eye drops 1 drp ophthalmic (eye) BEDTIME 07/11/20 10/10/23 Unknown History multivitamin 1 tab PO DAILY 07/11/20 10/10/23 Unknown History pravastatin 40 mg tablet 1 tab PO BEDTIME 07/11/20 10/10/23 Unknown History alendronate 70 mg tablet 70 mg PO WE@0900 01/09/21 10/10/23 Unknown History losartan 50 mg tablet 50 mg PO DAILY 11/05/22 10/10/23 Unknown History amlodipine 10 mg tablet 10 mg PO DAILY 10/10/23 10/10/23 Unknown History hydroxyurea 500 mg capsule 1 cap PO TUTHSA@0900 10/10/23 10/10/23 Unknown History omega 2-zmc-lyv-fish oil 300 1 cap PO BID 10/10/23 10/10/23 Unknown History mg-1,000 mg capsule,delayed release (Fish Oil) Physical Exam 2 Vital Signs: Vital Signs: Last Vital Signs Temp 97.8 F 10/10/23 13:53 Pulse 70 10/10/23 13:53 Resp 20 10/10/23 13:53 BP 127/56 L 10/10/23 13:53 Pulse Ox 100 10/10/23 13:53 O2 Del Method Nasal Cannula 10/10/23 13:53 O2 Flow Rate 2 10/10/23 13:53 BMI result Body Mass Index 27.3 Const: General: cooperative, comfortable, no acute distress, alert and awake Nutritional Appearance: average body habitus Orientation/consciousness: p atient oriented x3 HEENT: Head: Yes normocephalic and Yes atraumatic Neck: Neck: Yes trachea midline, Yes supple and Yes no JVD Resp: Effort & Inspection: normal respiratory effort Auscultation: crackles on the right at the base Cardio: Jugular venous distension: no JVD Rate: regular rate Rhythm: r egular rhythm Heart sounds: S1 normal heart sound present, S2 normal heart sound present, no click, no gallops and no murmurs GI: Auscultation: normal bowel sounds Skin: General skin exam: no rashes or lesions noted Neuro: General: patient oriented x3 and no focal motor deficits Extrem: General: No clubbing, No cyanosis and No edema Objective Labs and Meds 10/10/23 06:06 10/10/23 05:43 Lab results: Laboratory Results - last 24 hr 10/09/23 10/09/23 10/09/23 20:20 20:41 23:41 WBC 23.5 H RBC 4.45 Hgb 14.8 Hct 42.7 MCV 96.0 MCH 33.3 H MCHC 34.7 RDW 14.3 Plt Count 357 D MPV 13.0 H Immature Gran % (Auto) 2.2 H Neut % (Auto) 90.3 H Lymph % (Auto) 4.8 L [place] % (Auto) 2.0 Eos % (Auto) 0.2 Baso % (Auto) 0.5 Lymph # (Auto) 1.1 L [place] # (Auto) 0.5 Eos # (Auto) 0.0 Baso # (Auto) 0.1 Abs Immat Gran (auto) 0.51 H Absolute Neuts (auto) 21.3 H Absolute Nucleated RBC 0.000 Nucleated RBC % (auto) 0.0 Smear Tech's Comments VERIFIED PT 12.1 INR 1.0 APTT 35.6 aPTT Heparin Protocol Sodium 145 Potassium 4.5 Chloride 109 H Carbon Dioxide 21 L Anion Gap 20 BUN 25 H Creatinine 1.10 Estim Creat Clear Calc 33.1 Estimated GFR 47 POC Glucose 171 H Random Glucose 176 H Estimat Average Glucose Hemoglobin A1c % Lactic Acid Calcium 9.8 Total Bilirubin 0.6 AST 32 H ALT 20 Alkaline Phosphatase 43 Total Creatine Kinase 165 H Troponin I High Sens 2412.2 H* 3228.9 H* B-Natriuretic Peptide Total Protein 7.1 Albumin 4.6 Triglycerides Cholesterol LDL Cholesterol, Calc HDL Cholesterol Lipase 9 Urine Color Urine Appearance Urine pH Ur Specific [place] Urine Protein Urine Glucose (UA) Urine Ketones Urine Blood Urine Nitrite Ur Leukocyte Esterase Urine RBC Urine WBC Urine WBC Clumps Ur Squamous Epith Cells Urine Bacteria Hyaline Casts 10/09/23 10/10/23 10/10/23 23:57 01:57 03:22 WBC RBC Hgb Hct MCV MCH MCHC RDW Plt Count MPV Immature Gran % (Auto) Neut % (Auto) Lymph % (Auto) [place] % (Auto) Eos % (Auto) Baso % (Auto) Lymph # (Auto) [place] # (Auto) Eos # (Auto) Baso # (Auto) Abs Immat Gran (auto) Absolute Neuts (auto) Absolute Nucleated RBC Nucleated RBC % (auto) Smear Tech's Comments PT INR APTT aPTT Heparin Protocol Sodium Potassium Chloride Carbon Dioxide Anion Gap BUN Creatinine Estim Creat Clear Calc Estimated GFR POC Glucose Random Glucose Estimat Average Glucose Hemoglobin A1c % Lactic Acid 1.3 Calcium Total Bilirubin AST ALT Alkaline Phosphatase Total Creatine Kinase Troponin I High Sens B-Natriuretic Peptide 1615 H Total Protein Albumin Triglycerides Cholesterol LDL Cholesterol, Calc HDL Cholesterol Lipase Urine Color Yellow Urine Appearance Turbid Urine pH 5.5 Ur Specific [place] 1.020 Urine Protein 30 (1+) H Urine Glucose (UA) Negative Urine Ketones 40 Urine Blood Trace H Urine Nitrite Positive H Ur Leukocyte Esterase Large (3+) H Urine RBC 0-2 Urine WBC >50 H Urine WBC Clumps Present Ur Squamous Epith Cells 0-2 Urine Bacteria 4+ Hyaline Casts 6-10 10/10/23 10/10/23 10/10/23 05:43 05:43 05:43 WBC RBC Hgb Hct MCV MCH MCHC RDW Plt Count MPV Immature Gran % (Auto) Neut % (Auto) Lymph % (Auto) [place] % (Auto) Eos % (Auto) Baso % (Auto) Lymph # (Auto) [place] # (Auto) Eos # (Auto) Baso # (Auto) Abs Immat Gran (auto) Absolute Neuts (auto) Absolute Nucleated RBC Nucleated RBC % (auto) Smear Tech's Comments PT 12.9 INR 1.1 APTT aPTT Heparin Protocol 118.9 H* Sodium 143 Potassium 3.8 Chloride 111 H Carbon Dioxide 19 L Anion Gap 17 BUN 27 H Creatinine 0.85 Estim Creat Clear Calc 42.8 Estimated GFR > 60 POC Glucose Random Glucose 137 H Estimat Average Glucose Hemoglobin A1c % Lactic Acid Calcium 9.5 Total Bilirubin 0.5 AST 33 H ALT 16 Alkaline Phosphatase 40 Total Creatine Kinase Troponin I High Sens 2689.2 H* B-Natriuretic Peptide Total Protein 6.2 L Albumin 4.0 Triglycerides 136 Cancelled Cholesterol 114 Cancelled LDL Cholesterol, Calc 60 HDL Cholesterol Lipase Urine Color Urine Appearance Urine pH Ur Specific [place] Urine Protein Urine Glucose (UA) Urine Ketones Urine Blood Urine Nitrite Ur Leukocyte Esterase Urine RBC Urine WBC Urine WBC Clumps Ur Squamous Epith Cells Urine Bacteria Hyaline Casts 10/10/23 10/10/23 10/10/23 05:43 05:43 06:06 WBC 24.9 H RBC 3.90 L Hgb 12.5 Hct 37.5 MCV 96.2 MCH 32.1 MCHC 33.3 RDW 14.6 Plt Count 281 MPV Not Reportable Immature Gran % (Auto) 1.6 H Neut % (Auto) 90.9 H Lymph % (Auto) 4.1 L [place] % (Auto) 3.1 Eos % (Auto) 0.1 Baso % (Auto) 0.2 Lymph # (Auto) 1.0 L [place] # (Auto) 0.8 Eos # (Auto) 0.0 Baso # (Auto) 0.1 Abs Immat Gran (auto) 0.40 H Absolute Neuts (auto) 22.6 H Absolute Nucleated RBC 0.000 Nucleated RBC % (auto) 0.0 Smear Tech's Comments VERIFIED PT INR APTT aPTT Heparin Protocol Sodium Potassium Chloride Carbon Dioxide Anion Gap BUN Creatinine Estim Creat Clear Calc Estimated GFR POC Glucose Random Glucose Estimat Average Glucose 97 Hemoglobin A1c % 5.0 Lactic Acid Calcium Total Bilirubin AST ALT Alkaline Phosphatase Total Creatine Kinase Troponin I High Sens B-Natriuretic Peptide Total Protein Albumin Triglycerides Cholesterol LDL Cholesterol, Calc Cancelled HDL Cholesterol 27 L Cancelled Lipase Urine Color Urine Appearance Urine pH Ur Specific [place] Urine Protein Urine Glucose (UA) Urine Ketones Urine Blood Urine Nitrite Ur Leukocyte Esterase Urine RBC Urine WBC Urine WBC Clumps Ur Squamous Epith Cells Urine Bacteria Hyaline Casts 10/10/23 07:25 WBC RBC Hgb Hct MCV MCH MCHC RDW Plt Count MPV Immature Gran % (Auto) Neut % (Auto) Lymph % (Auto) [place] % (Auto) Eos % (Auto) Baso % (Auto) Lymph # (Auto) [place] # (Auto) Eos # (Auto) Baso # (Auto) Abs Immat Gran (auto) Absolute Neuts (auto) Absolute Nucleated RBC Nucleated RBC % (auto) Smear Tech's Comments PT INR APTT aPTT Heparin Protocol 64.7 D Sodium Potassium Chloride Carbon Dioxide Anion Gap BUN Creatinine Estim Creat Clear Calc Estimated GFR POC Glucose Random Glucose Estimat Average Glucose Hemoglobin A1c % Lactic Acid Calcium Total Bilirubin AST ALT Alkaline Phosphatase Total Creatine Kinase Troponin I High Sens B-Natriuretic Peptide Total Protein Albumin Triglycerides Cholesterol LDL Cholesterol, Calc HDL Cholesterol Lipase Urine Color Urine Appearance Urine pH Ur Specific [place] Urine Protein Urine Glucose (UA) Urine Ketones Urine Blood Urine Nitrite Ur Leukocyte Esterase Urine RBC Urine WBC Urine WBC Clumps Ur Squamous Epith Cells Urine Bacteria Hyaline Casts Imaging Radiologist's impression: Impressions Cervical Spine CT 10/09/23 20:58 IMPRESSION: 1. No acute intracranial pathology. 2. No CT evidence of acute cervical spine fracture or traumatic subluxation. Head CT 10/09/23 20:58 IMPRESSION: 1. No acute intracranial pathology. 2. No CT evidence of acute cervical spine fracture or traumatic subluxation. Chest X-Ray 10/09/23 21:56 IMPRESSION: Low lung volumes. No acute pulmonary disease. Assessment and Plan (1) Acute myocardial infarction: Status: Acute Patient present with symptoms of fall and was more than 10 hours after was found and came in with somewhat altered mental status and left bundle-branch block with significant elevated troponins. Since then she is further elevated troponins which is now downtrending. There is high likelihood acute myocardial infarction with EKG now showing left bundle-branch block with echo showing LAD territory wall motion abnormality. Stress-induced cardiomyopathy is possible given her circumstances although this is less likely. Would treat her as acute myocardial infarction. Given significant delay in presentation as well as cognitive dysfunction will pursue conservative medical therapy. Discussed with the niece who is the healthcare proxy as to the rationale and she understands and agrees. Continue IV heparin for total 72 hours. Will give aspirin and load with Plavix. Will given nitro paste as well as metoprolol treat her ischemia. BNP is elevated most likely due to acute myocardial infarction with crackles at the right base suggestive of atelectasis. Incentive spirometry although follow respiratory status closely. She develops more progressive shortness of breath hypoxemia would diurese her with Lasix. Once stabilized would start her on valsartan therapy for neurohormonal modulation. Risks associated with acute myocardial infarction in the short term as well as in the 1st year after myocardial infarction was discussed. Will follow with you Procedures Date of Service Date of Service: 10/10/23
--- NOTE | 2023-10-10 14:25 | MHC.CM.PN ---
Addendum entered by Estefani Winston 10/10/23 14:28: Pts niece will transport pt home if discharge plan is home. Original Note: IMM 10/09. Pt self-care, lives alone at home, uses a cane and walker. HCP completed with pt, now on file with pt naming her niece Marilynn as the primary HCP. Marilynn was present at beside and when discussing discharge plan, Marilynn feels strongly that her aunt will need STR. Pt however states she has done STR in the past and would not want to do that again, but would be agreeable to new VNA services. PCP: Dr. Plunkett Name
[2023-10-10 15:02] LABS: PTT Heparin Drip 46.1 SEC (53-77.9)
[2023-10-10] MEDS: Nitroglycerin 2 % Oint 1 GM Packet 0.5 INCH TRANSDERMA (15:19)
[2023-10-10] MEDS: Heparin Sodium,Porcine 5,000 UNIT/ML VIAL 2700 UNIT IVPUSH (15:34)
[2023-10-10] MEDS: Clopidogrel Bisulfate 300 MG TABLET PO (15:35)
--- NOTE | 2023-10-10 15:45 | HO.PM.IMPN ---
Subjective Subjective Date of Service: 10/10/23 Interval History: Seen and examined this morning Follow-up for NSTEMI, fall Pleasant but forgetful. Denies any chest pain at this time Review of Systems Review of Systems: Yes all other systems are reviewed and are negative Constitutional Constitutional: Denies chills and Denies fever(s) Physical Exam Vital Signs: Vital Signs: Last Vital Signs Temp 97.8 F 10/10/23 13:53 Pulse 70 10/10/23 13:53 Resp 20 10/10/23 13:53 BP 127/56 L 10/10/23 13:53 Pulse Ox 100 10/10/23 13:53 O2 Del Method Nasal Cannula 10/10/23 13:53 O2 Flow Rate 2 10/10/23 13:53 BMI result Body Mass Index 27.3 Const: Other: forgetful General: cooperative, comfortable, alert and awake Nutritional Appearance: average body habitus Orientation/consciousness: patient oriented x3 Resp: Effort & Inspection: normal respiratory effort, able to speak in complete sentences, no respiratory distress and no use of accessory muscles Cardio: Rate: regular rate GI: Inspection: No distended Palpation (GI): Soft to palpation Neuro: General: patient oriented x3, moves all extremities and CN's II-XI intact bilaterally Extrem: General: Yes no pedal edema Objective Data Active Medications Acetaminophen (Acetaminophen 325 Mg Tablet) 650 mg PO Q6H PRN PRN Reason: mild pain, headache or fever Aspirin (Aspirin Enteric Coated 81 Mg Tablet.) 81 mg PO DAILY [facility] Last Admin: 10/10/23 10:33 Dose: 81 mg Documented By: SHAWN Atorvastatin Calcium (Atorvastatin Calcium 80 Mg Tablet) 80 mg PO BEDTIME [facility] Clopidogrel Bisulfate (Clopidogrel Bisulfate 75 Mg Tablet) 75 mg PO DAILY [facility] Heparin Sodium (Porcine) (Heparin Sodium,Porcine 5,000 Unit/Ml Vial) 2,700 unit 40 unit/kg (2700 unit) IVPUSH PROTOCOL BOLUS PRN; Protocol PRN Reason: 40 unit/kg - Heparin Protocol Last Admin: 10/10/23 15:34 Dose: 2,700 unit Documented By: SHAWN Heparin Sodium (Porcine) (Heparin Sodium,Porcine 5,000 Unit/Ml Vial) 5,400 unit 80 unit/kg (5400 unit) IVPUSH PROTOCOL BOLUS PRN; Protocol PRN Reason: 80 unit/kg - Heparin Protocol Hydroxyurea (Hydroxyurea 500 Mg Capsule) 500 mg PO TUTHSA@0900 [facility] Heparin Sodium/Sodium Chloride (Heparin Sodium,Porcine/1/2ns) 25,000 unit in 250 mls @ 0 mls/hr IVCONT .Q0M [facility]; Protocol Stop: 10/12/23 21:59 Last Titration: 10/10/23 15:21 Dose: 14.75 units/kg/hr, 10 mls/hr Documented By: SHAWN Co-signed By: LOREN Ceftriaxone Sodium 1 gm/ (Sodium Chloride) 50 mls @ 100 mls/hr IV Q24H [facility] Latanoprost (Latanoprost 0.005 % Ophth Kay 2.5 Ml Drops) 1 drop EYE-BOTH BEDTIME [facility] Metoprolol Tartrate (Metoprolol Tartrate 12.5 Mg Halftab) 12.5 mg PO BID [facility]; Protocol Last Admin: 10/10/23 10:33 Dose: 12.5 mg Documented By: SHAWN Nitroglycerin (Nitroglycerin 2 % Oint 1 Gm Packet) 0.5 inch TRANSDERMA RQ6H WHILE AWAKE [facility] Last Admin: 10/10/23 15:19 Dose: 0.5 inch Documented By: SHAWN Sodium Chloride (0.9 % Sodium Chloride Flush 3 Ml Syringe) 3 ml IVFLUSH QSHIFT [facility] Last Admin: 10/10/23 10:34 Dose: 3 ml Documented By: SHAWN Labs 10/10/23 06:06 10/10/23 05:43 Labs: Laboratory Results - last 24 hr 10/09/23 10/09/23 10/09/23 20:20 20:41 23:41 MCV 96.0 MCH 33.3 H MCHC 34.7 RDW 14.3 Plt Count 357 D MPV 13.0 H Immature Gran % (Auto) 2.2 H Neut % (Auto) 90.3 H Lymph % (Auto) 4.8 L [place] % (Auto) 2.0 Eos % (Auto) 0.2 Baso % (Auto) 0.5 Lymph # (Auto) 1.1 L [place] # (Auto) 0.5 Eos # (Auto) 0.0 Baso # (Auto) 0.1 Abs Immat Gran (auto) 0.51 H Absolute Neuts (auto) 21.3 H Absolute Nucleated RBC 0.000 Nucleated RBC % (auto) 0.0 Smear Tech's Comments VERIFIED PT 12.1 INR 1.0 APTT 35.6 aPTT Heparin Protocol Anion Gap 20 Estim Creat Clear Calc 33.1 Estimated GFR 47 POC Glucose 171 H Random Glucose 176 H Estimat Average Glucose Hemoglobin A1c % Lactic Acid Calcium 9.8 Total Bilirubin 0.6 AST 32 H ALT 20 Alkaline Phosphatase 43 Total Creatine Kinase 165 H Troponin I High Sens 2412.2 H* 3228.9 H* B-Natriuretic Peptide Total Protein 7.1 Albumin 4.6 Triglycerides Cholesterol LDL Cholesterol, Calc HDL Cholesterol Lipase 9 Urine Color Urine Appearance Urine pH Ur Specific [place] Urine Protein Urine Glucose (UA) Urine Ketones Urine Blood Urine Nitrite Ur Leukocyte Esterase Urine RBC Urine WBC Urine WBC Clumps Ur Squamous Epith Cells Urine Bacteria Hyaline Casts 10/09/23 10/10/23 10/10/23 23:57 01:57 03:22 MCV MCH MCHC RDW Plt Count MPV Immature Gran % (Auto) Neut % (Auto) Lymph % (Auto) [place] % (Auto) Eos % (Auto) Baso % (Auto) Lymph # (Auto) [place] # (Auto) Eos # (Auto) Baso # (Auto) Abs Immat Gran (auto) Absolute Neuts (auto) Absolute Nucleated RBC Nucleated RBC % (auto) Smear Tech's Comments PT INR APTT aPTT Heparin Protocol Anion Gap Estim Creat Clear Calc Estimated GFR POC Glucose Random Glucose Estimat Average Glucose Hemoglobin A1c % Lactic Acid 1.3 Calcium Total Bilirubin AST ALT Alkaline Phosphatase Total Creatine Kinase Troponin I High Sens B-Natriuretic Peptide 1615 H Total Protein Albumin Triglycerides Cholesterol LDL Cholesterol, Calc HDL Cholesterol Lipase Urine Color Yellow Urine Appearance Turbid Urine pH 5.5 Ur Specific [place] 1.020 Urine Protein 30 (1+) H Urine Glucose (UA) Negative Urine Ketones 40 Urine Blood Trace H Urine Nitrite Positive H Ur Leukocyte Esterase Large (3+) H Urine RBC 0-2 Urine WBC >50 H Urine WBC Clumps Present Ur Squamous Epith Cells 0-2 Urine Bacteria 4+ Hyaline Casts 6-10 10/10/23 10/10/23 10/10/23 05:43 05:43 05:43 MCV MCH MCHC RDW Plt Count MPV Immature Gran % (Auto) Neut % (Auto) Lymph % (Auto) [place] % (Auto) Eos % (Auto) Baso % (Auto) Lymph # (Auto) [place] # (Auto) Eos # (Auto) Baso # (Auto) Abs Immat Gran (auto) Absolute Neuts (auto) Absolute Nucleated RBC Nucleated RBC % (auto) Smear Tech's Comments PT 12.9 INR 1.1 APTT aPTT Heparin Protocol 118.9 H* Anion Gap 17 Estim Creat Clear Calc 42.8 Estimated GFR > 60 POC Glucose Random Glucose 137 H Estimat Average Glucose Hemoglobin A1c % Lactic Acid Calcium 9.5 Total Bilirubin 0.5 AST 33 H ALT 16 Alkaline Phosphatase 40 Total Creatine Kinase Troponin I High Sens 2689.2 H* B-Natriuretic Peptide Total Protein 6.2 L Albumin 4.0 Triglycerides 136 Cancelled Cholesterol 114 Cancelled LDL Cholesterol, Calc 60 HDL Cholesterol Lipase Urine Color Urine Appearance Urine pH Ur Specific [place] Urine Protein Urine Glucose (UA) Urine Ketones Urine Blood Urine Nitrite Ur Leukocyte Esterase Urine RBC Urine WBC Urine WBC Clumps Ur Squamous Epith Cells Urine Bacteria Hyaline Casts 10/10/23 10/10/23 10/10/23 05:43 05:43 06:06 MCV 96.2 MCH 32.1 MCHC 33.3 RDW 14.6 Plt Count 281 MPV Not Reportable Immature Gran % (Auto) 1.6 H Neut % (Auto) 90.9 H Lymph % (Auto) 4.1 L [place] % (Auto) 3.1 Eos % (Auto) 0.1 Baso % (Auto) 0.2 Lymph # (Auto) 1.0 L [place] # (Auto) 0.8 Eos # (Auto) 0.0 Baso # (Auto) 0.1 Abs Immat Gran (auto) 0.40 H Absolute Neuts (auto) 22.6 H Absolute Nucleated RBC 0.000 Nucleated RBC % (auto) 0.0 Smear Tech's Comments VERIFIED PT INR APTT aPTT Heparin Protocol Anion Gap Estim Creat Clear Calc Estimated GFR POC Glucose Random Glucose Estimat Average Glucose 97 Hemoglobin A1c % 5.0 Lactic Acid Calcium Total Bilirubin AST ALT Alkaline Phosphatase Total Creatine Kinase Troponin I High Sens B-Natriuretic Peptide Total Protein Albumin Triglycerides Cholesterol LDL Cholesterol, Calc Cancelled HDL Cholesterol 27 L Cancelled Lipase Urine Color Urine Appearance Urine pH Ur Specific [place] Urine Protein Urine Glucose (UA) Urine Ketones Urine Blood Urine Nitrite Ur Leukocyte Esterase Urine RBC Urine WBC Urine WBC Clumps Ur Squamous Epith Cells Urine Bacteria Hyaline Casts 10/10/23 10/10/23 07:25 14:34 MCV MCH MCHC RDW Plt Count MPV Immature Gran % (Auto) Neut % (Auto) Lymph % (Auto) [place] % (Auto) Eos % (Auto) Baso % (Auto) Lymph # (Auto) [place] # (Auto) Eos # (Auto) Baso # (Auto) Abs Immat Gran (auto) Absolute Neuts (auto) Absolute Nucleated RBC Nucleated RBC % (auto) Smear Tech's Comments PT INR APTT aPTT Heparin Protocol 64.7 D 46.1 L D Anion Gap Estim Creat Clear Calc Estimated GFR POC Glucose Random Glucose Estimat Average Glucose Hemoglobin A1c % Lactic Acid Calcium Total Bilirubin AST ALT Alkaline Phosphatase Total Creatine Kinase Troponin I High Sens B-Natriuretic Peptide Total Protein Albumin Triglycerides Cholesterol LDL Cholesterol, Calc HDL Cholesterol Lipase Urine Color Urine Appearance Urine pH Ur Specific [place] Urine Protein Urine Glucose (UA) Urine Ketones Urine Blood Urine Nitrite Ur Leukocyte Esterase Urine RBC Urine WBC Urine WBC Clumps Ur Squamous Epith Cells Urine Bacteria Hyaline Casts Assessment and Plan (1) Acute myocardial infarction: Status: Acute (2) Urinary tract infection: Status: Acute Plan Debbie Tavarez is a 88 y/o woman admitted with: Acute coronary syndrome/NSTEMI ASA 81 mg p.o. daily, metoprolol and high-intensity statin, start Plavix, nitro paste Continue IV heparin for 72 hours Cardiology following - plan for conservative management as above, no plan for transfer or cardiac catheterization at this time LBBB. No old ECGs available for comparison. Urinary tract infection. no sepsis. Leukocytosis likely reactive due to fall/NSTEMI Continue ceftriaxone 1 g IV daily. Urine culture pending fall PT eval when medically stable Hyperlipidemia. Continue statin. CKD stage 3A. Continue to monitor renal function. Essential hypertension. Continue metoprolol. Essential thrombocytosis. Continue hydroxyurea. Code status: Full DVT prophylaxis: Heparin IV infusion Patient will need hospitalization for at least 2 midnights for ACS therapy with aspirin, heparin IV infusion, statin and beta blockers; and evaluation by subspecialty. Quality Stroke Does the patient have a stroke diagnosis?: No VTE Prior VTE?: No VTE Risk Level:: Medical - moderate - high VTE Device Contraindication: Treatment Not Indicated VTE Drug Contraindication: N/A - Med Ordered
--- NOTE | 2023-10-10 16:26 | PC.NURSE ---
This RN had put the 10 units in the wrong column, I fixed it using another column to make it 10 units/kg, I had put it at 10mls accidentally.
[2023-10-10] MEDS: Atorvastatin Calcium 80 MG TABLET PO (20:33)
[2023-10-11 01:11] VITALS: BP 135/25; PULSE 71; RESP 21; TEMP 36.9; O2SAT 95
--- NOTE | 2023-10-11 04:08 | PC.NURSE ---
CALLED LAB TO DRAW PTT
[2023-10-11 05:07] LABS: PTT Heparin Drip 44.1 SEC (53-77.9)
[2023-10-11] MEDS: Heparin Sodium,Porcine 5,000 UNIT/ML VIAL 2700 UNIT IVPUSH ×2 (05:26→12:02)
[2023-10-11 05:31] VITALS: BP 122/45; PULSE 72; RESP 18; TEMP 36.6; O2SAT 95
--- NOTE | 2023-10-11 05:35 | PC.NURSE ---
pt having R sided CP- messaged hospitalist . PTT came back 44.1 2700 bolus administered and drip titrated to 12 units per protocol . Another PTT ordered for 1130 this am
[2023-10-11 07:18] VITALS: BP 131/55; PULSE 74; RESP 20; O2SAT 95
--- NOTE | 2023-10-11 07:32 | PC.NURSE ---
pt is alert and oriented, skin pwd, respirations even and unlabored, pt is reporting right sided chest pain that feels like aching that comes and goes, pain at 4/10, ns on the monitor and vs stable
[2023-10-11] MEDS: Clopidogrel Bisulfate 75 MG TABLET PO (08:06)
[2023-10-11] MEDS: Metoprolol Tartrate 12.5 MG HALFTAB PO ×2 (08:06→20:39)
[2023-10-11] MEDS: Aspirin Enteric Coated 81 MG TABLET.DR PO (08:07)
[2023-10-11] MEDS: Nitroglycerin 2 % Oint 1 GM Packet 0.5 INCH TRANSDERMA ×3 (08:07→20:39)
[2023-10-11 09:22] LABS: Hematocrit 33.3 % (37.0-47.0); Hemoglobin 11.3 g/dl (12.0-16.0); Mean Corpuscular HGB Conc 33.9 g/dl (31.0-35.0); Mean Corpuscular Hemoglobin 33.2 pg (27.0-33.0); Mean Corpuscular Volume 97.9 fL (80.0-98.0); Mean Platelet Volume 13.2 fL (9.4-12.3); PLT CLUMP 1; Red Cell Distribution Width 14.6 % (11.0-16.0)
[2023-10-11 09:23] LABS: White Blood Count 18.5 X10*3/uL (4.8-10.8)
[2023-10-11 09:24] LABS: Platelet Count 230 X10*3/uL (160-400)
[2023-10-11 09:31] LABS: Anion Gap 14 (12-20); Blood Urea Nitrogen 24 mg/dL (9-16); Calcium 9.3 mg/dL (8.4-10.2); Carbon Dioxide 20 mmol/L (22-29); Chloride 108 mmol/L (96-108); Creatinine Clr Calc Pharmacy 43.4; Estimated Glomerular Filt Rate > 60; Glucose Random 127 mg/dL (60-115); Potassium 3.5 mmol/L (3.3-5.1); Sodium 138 mmol/L (135-145)
--- NOTE | 2023-10-11 10:35 | HO.PM.IMPN ---
Subjective Subjective Date of Service: 10/11/23 Interval History: Seen and examined this morning Follow-up for NSTEMI had documented chest pain early this am, patient does not recall Review of Systems Review of Systems: Yes all other systems are reviewed and are negative Constitutional Constitutional: Denies fever(s) Eyes Eyes: Denies blurry vision ENT Ears, Nose, Mouth, and Throat: Denies sore throat Cardiovascular Cardiovascular: Denies chest pain and Denies dyspnea Respiratory Respiratory: Denies cough and Denies dyspnea Gastrointestinal Gastrointestinal: Denies abdominal pain, Denies nausea and Denies vomiting Musculoskeletal Musculoskeletal: Denies back pain, Reports arthralgias, Denies joint swelling and Denies limited range of motion Integumentary/Breasts Skin/Breast: Denies rash Physical Exam Vital Signs: Vital Signs: Last Vital Signs Temp 98 F 10/11/23 05:31 Pulse 74 10/11/23 07:18 Resp 20 10/11/23 07:18 BP 131/55 L 10/11/23 07:18 Pulse Ox 95 10/11/23 07:18 O2 Del Method Room Air 10/11/23 07:18 O2 Flow Rate 2 10/10/23 13:53 BMI result Body Mass Index 27.3 Const: Other: forgetful General: cooperative, comfortable, alert and awake Nutritional Appearance: average body habitus Orientation/consciousness: patient oriented x3 Resp: Effort & Inspection: normal respiratory effort, able to speak in complete sentences, no respiratory distress and no use of accessory muscles Cardio: Rate: regular rate GI: Inspection: No distended Palpation (GI): Soft to palpation Neuro: General: patient oriented x3, moves all extremities and CN's II-XI intact bilaterally Extrem: General: Yes no pedal edema Objective Data Active Medications Acetaminophen (Acetaminophen 325 Mg Tablet) 650 mg PO Q6H PRN PRN Reason: mild pain, headache or fever Aspirin (Aspirin Enteric Coated 81 Mg Tablet.) 81 mg PO DAILY [facility] Last Admin: 10/11/23 08:07 Dose: 81 mg Documented By: VASYL Atorvastatin Calcium (Atorvastatin Calcium 80 Mg Tablet) 80 mg PO BEDTIME [facility] Last Admin: 10/10/23 20:33 Dose: 80 mg Documented By: CASI Clopidogrel Bisulfate (Clopidogrel Bisulfate 75 Mg Tablet) 75 mg PO DAILY [facility] Last Admin: 10/11/23 08:06 Dose: 75 mg Documented By: VASYL Heparin Sodium (Porcine) (Heparin Sodium,Porcine 5,000 Unit/Ml Vial) 2,700 unit 40 unit/kg (2700 unit) IVPUSH PROTOCOL BOLUS PRN; Protocol PRN Reason: 40 unit/kg - Heparin Protocol Last Admin: 10/11/23 05:26 Dose: 2,700 unit Documented By: CASI Heparin Sodium (Porcine) (Heparin Sodium,Porcine 5,000 Unit/Ml Vial) 5,400 unit 80 unit/kg (5400 unit) IVPUSH PROTOCOL BOLUS PRN; Protocol PRN Reason: 80 unit/kg - Heparin Protocol Hydroxyurea (Hydroxyurea 500 Mg Capsule) 500 mg PO TUTHSA@0900 [facility] Heparin Sodium/Sodium Chloride (Heparin Sodium,Porcine/1/2ns) 25,000 unit in 250 mls @ 0 mls/hr IVCONT .Q0M [facility]; Protocol Stop: 10/12/23 21:59 Last Titration: 10/11/23 05:28 Dose: 12 units/kg/hr, 8.14 mls/hr Documented By: CASI Co-signed By: AMY Ceftriaxone Sodium 1 gm/ (Sodium Chloride) 50 mls @ 100 mls/hr IV Q24H [facility] Last Infusion: 10/10/23 21:08 Dose: Infused Documented By: CASI Latanoprost (Latanoprost 0.005 % Ophth Kay 2.5 Ml Drops) 1 drop EYE-BOTH BEDTIME [facility] Last Admin: 10/10/23 21:08 Dose: Not Given Documented By: CASI Non-Admin Reason: Med Not Available Metoprolol Tartrate (Metoprolol Tartrate 12.5 Mg Halftab) 12.5 mg PO BID [facility]; Protocol Last Admin: 10/11/23 08:06 Dose: 12.5 mg Documented By: VASYL Nitroglycerin (Nitroglycerin 2 % Oint 1 Gm Packet) 0.5 inch TRANSDERMA RQ6H WHILE AWAKE [facility] Last Admin: 10/11/23 08:07 Dose: 0.5 inch Documented By: VASYL Sodium Chloride (0.9 % Sodium Chloride Flush 3 Ml Syringe) 3 ml IVFLUSH QSHIFT [facility] Last Admin: 10/11/23 08:12 Dose: Not Given Documented By: VASYL Non-Admin Reason: IV Running Labs 10/11/23 08:39 10/11/23 08:39 Labs: Laboratory Results - last 24 hr 10/10/23 10/10/23 10/11/23 14:34 21:46 04:37 MCV MCH MCHC RDW Plt Count MPV Absolute Nucleated RBC Nucleated RBC % (auto) aPTT Heparin Protocol 46.1 L D 63.0 D 44.1 L D Anion Gap Estim Creat Clear Calc Estimated GFR Random Glucose Calcium 10/11/23 08:39 MCV 97.9 MCH 33.2 H MCHC 33.9 RDW 14.6 Plt Count 230 MPV 13.2 H Absolute Nucleated RBC 0.000 Nucleated RBC % (auto) 0.0 aPTT Heparin Protocol Anion Gap 14 Estim Creat Clear Calc 43.4 Estimated GFR > 60 Random Glucose 127 H Calcium 9.3 Microbiology Microbiology Results: Microbiology 10/10/23 00:40 Blood Culture - Preliminary Blood - Venous No growth after 24 hours. 10/10/23 00:40 Blood Culture - Preliminary Blood - Venous No growth after 24 hours. Assessment and Plan (1) Acute myocardial infarction: Status: Acute (2) Urinary tract infection: Status: Acute Plan This is a 88 y/o woman admitted with: Acute coronary syndrome/NSTEMI ASA 81 mg p.o. daily, metoprolol and high-intensity statin, start Plavix, nitro paste Continue IV heparin for 72 hours Cardiology following - plan for conservative management as above, no plan for transfer or cardiac catheterization at this time LBBB. No old ECGs available for comparison. Urinary tract infection. no sepsis. Leukocytosis likely reactive due to fall/NSTEMI Continue ceftriaxone 1 g IV daily. Urine culture pending fall PT eval when medically stable Hyperlipidemia. Continue statin. CKD stage 3A. Continue to monitor renal function. Essential hypertension. Continue metoprolol. Essential thrombocytosis. Continue hydroxyurea. Code status: Full DVT prophylaxis: Heparin IV infusion Patient will need hospitalization for at least 2 midnights for ACS therapy with aspirin, heparin IV infusion, statin and beta blockers; and evaluation by subspecialty. Quality Stroke Does the patient have a stroke diagnosis?: No VTE Prior VTE?: No VTE Risk Level:: Medical - moderate - high VTE Device Contraindication: Treatment Not Indicated VTE Drug Contraindication: N/A - Med Ordered
[2023-10-11] MEDS: Heparin Sodium,Porcine/1/2NS 25,000 UNIT/250 ML IV.SOLN 8.14 UNIT IVCONT (11:34)
--- NOTE | 2023-10-11 11:41 | PC.NURSE ---
New bag of heparin hung with Lynda kirkland RN.
[2023-10-11 11:47] LABS: PTT Heparin Drip 40.2 SEC (53-77.9)
--- NOTE | 2023-10-11 12:05 | PC.NURSE ---
Heparin gtt titrated up to 14 units/kg per policy with second RN Luz, bolus given per policy. Next PTT draw order placed for 1730 this evening.
--- NOTE | 2023-10-11 12:58 | PM.PNCARD ---
Subjective Subjective Date of Service: 10/11/23 Principal diagnosis: Acute myocardial infarction Interval history: Patient denies any obvious significant chest pain. Hemodynamically stable. No arrhythmias noted. Review of Systems Review of Systems Yes Unobtainable due to mental status Physical Exam Vital Signs: Last Vital Signs Temp 98 F 10/11/23 05:31 Pulse 74 10/11/23 07:18 Resp 20 10/11/23 07:18 BP 131/55 L 10/11/23 07:18 Pulse Ox 95 10/11/23 07:18 O2 Del Method Room Air 10/11/23 07:18 O2 Flow Rate 2 10/10/23 13:53 BMI result Body Mass Index 27.3 Const Other: forgetful General: cooperative, comfortable, alert and awake Nutritional Appearance: average body habitus Resp Effort & Inspection: normal respiratory effort, able to speak in complete sentences, no respiratory distress and no use of accessory muscles Cardio Rate: regular rate GI Inspection: No distended Palpation (GI): Soft to palpation Neuro General: moves all extremities and CN's II-XI intact bilaterally Extrem General: Yes no pedal edema Objective Labs and Meds 10/11/23 08:39 10/11/23 08:39 Lab results: Laboratory Results - last 24 hr 10/10/23 10/10/23 10/11/23 14:34 21:46 04:37 WBC RBC Hgb Hct MCV MCH MCHC RDW Plt Count MPV Absolute Nucleated RBC Nucleated RBC % (auto) aPTT Heparin Protocol 46.1 L D 63.0 D 44.1 L D Sodium Potassium Chloride Carbon Dioxide Anion Gap BUN Creatinine Estim Creat Clear Calc Estimated GFR Random Glucose Calcium 10/11/23 10/11/23 08:39 11:34 WBC 18.5 H RBC 3.40 L Hgb 11.3 L Hct 33.3 L MCV 97.9 MCH 33.2 H MCHC 33.9 RDW 14.6 Plt Count 230 MPV 13.2 H Absolute Nucleated RBC 0.000 Nucleated RBC % (auto) 0.0 aPTT Heparin Protocol 40.2 L Sodium 138 Potassium 3.5 Chloride 108 Carbon Dioxide 20 L Anion Gap 14 BUN 24 H Creatinine 0.84 Estim Creat Clear Calc 43.4 Estimated GFR > 60 Random Glucose 127 H Calcium 9.3 Progress Note: A&P Assessment and plan (1) Acute myocardial infarction: Status: Acute Assessment and Plan: Acute myocardial infarction 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 Clinically currently not having any significant chest pain. Hemodynamically stable. Heart rate is well controlled. Continue metoprolol therapy, nitrates, dual antiplatelet therapy, high-intensity statin therapy. Heparin for total of 72 hours. Out of bed to chair. Add low-dose valsartan 40 mg daily for neurohormonal modulation. Continue conservative medical management. Will follow with you Time Spent With Patient Time: Total time managing care of this patient today ____ minutes. Progress Note: Quality Stroke Does the patient have a stroke diagnosis?: No Procedures Date of Service Date of Service: 10/11/23
[2023-10-11] MEDS: 0.9 % Sodium Chloride Flush 3 ML SYRINGE IVFLUSH (15:03)
[2023-10-11 15:04] VITALS: BP 123/54; PULSE 68; RESP 22; O2SAT 97
--- NOTE | 2023-10-11 15:12 | PC.NURSE ---
Patient refused Lovonox shot, either sleeping or eating on stretcher at this time.
--- NOTE | 2023-10-11 15:29 | MHC.EDTECH ---
Pt helped to and from the commode, pt clean , dry, and repositioned in bed, pt had no further concerns or requests
[2023-10-11 18:01] LABS: PTT Heparin Drip 65.2 SEC (53-77.9)
--- NOTE | 2023-10-11 18:28 | PC.NURSE ---
PTT returned therapeutic, dose unchanged, confirmed with second RN Lynda, next PTT ordered placed for 2329.
[2023-10-11 20:00] VITALS: BP 127/60; PULSE 70; RESP 20; TEMP 37.7; O2SAT 95
[2023-10-11] MEDS: Atorvastatin Calcium 80 MG TABLET PO (20:39)
[2023-10-11] MEDS: cefTRIAXone sodium 1 GM in 0.9 % Sodium Chloride 50 ML IV (20:40)
[2023-10-11 23:51] LABS: PTT Heparin Drip 61.8 SEC (53-77.9)
[2023-10-11] MEDS: Acetaminophen 325 MG TABLET 650 MG PO (23:56)
[2023-10-12] VITALS (7 sets, daily range): BP systolic 108–164; BP diastolic 53–60; PULSE 62–70; RESP 16–20; TEMP 36.3–37; O2SAT 93–98
--- NOTE | 2023-10-12 | ECG_ITS ---
Test Reason : REEVAL, NSTEMI Blood Pressure : / mmHG Vent. Rate : 068 BPM Atrial Rate : 068 BPM P-R Int : 174 ms QRS Dur : 156 ms QT Int : 500 ms P-R-T Axes : 062 -19 153 degrees QTc Int : 531 ms Normal sinus rhythm Left bundle branch block Precordial t wave inversions Abnormal ECG When compared with ECG of 10-OCT-2023 08:51, T wave inversion more evident in Anterolateral leads Referred By: Pina Perez Electronically Signed By:Meño Denny
[2023-10-12] MEDS: Acetaminophen 325 MG TABLET 650 MG PO ×2 (06:17→20:30)
[2023-10-12 06:32] LABS: Hematocrit 31.4 % (37.0-47.0); Hemoglobin 10.6 g/dl (12.0-16.0); Mean Corpuscular HGB Conc 33.8 g/dl (31.0-35.0); Mean Corpuscular Hemoglobin 32.6 pg (27.0-33.0); Mean Corpuscular Volume 96.6 fL (80.0-98.0); Mean Platelet Volume 13.5 fL (9.4-12.3); Platelet Count 212 X10*3/uL (160-400); Red Blood Count 3.25 X10*6/uL (4.20-5.50); Red Cell Distribution Width 14.6 % (11.0-16.0); White Blood Count 14.1 X10*3/uL (4.8-10.8)
[2023-10-12 06:34] LABS: PTT Heparin Drip 55.7 SEC (53-77.9)
[2023-10-12] MEDS: Nitroglycerin 2 % Oint 1 GM Packet 0.5 INCH TRANSDERMA ×2 (09:17→20:30)
[2023-10-12] MEDS: Aspirin Enteric Coated 81 MG TABLET.DR PO (09:18)
[2023-10-12] MEDS: Clopidogrel Bisulfate 75 MG TABLET PO (09:19)
[2023-10-12] MEDS: Metoprolol Tartrate 12.5 MG HALFTAB PO ×2 (09:19→20:30)
--- NOTE | 2023-10-12 11:14 | MHC.CM.PN ---
Addendum entered by Tatiana Guzman RN 10/12/23 15:56: P.T. RECOMMENDING HOME W/SERVICES, CM MET W/PT WHO IS ADAMANT SHE WILL GO HOME AND MAY WANT OUTPT PT HOWEVER AFTER EXPLAINING THAT P.T. WILL START MUCH SOONER IF CM SETS IT UP RATHER THAN GOIONG THROUGH HER PCP, PT AGREEABLE TO [facility] FOR HOME SERVICES. Original Note: EMR REVIEWED, PER HOSPITALIST PT REMAINS ON HEPARIN DRIP, NO PLAN FOR TXFR TO [facility] PLAN IS FOR CONSERVATIVE MEDICAL MANAGEMENT, NO PLAN FOR DC AT THIS TIME, CM WILL CONT TO FOLLOW DC NEEDS.
--- NOTE | 2023-10-12 11:18 | P.PNIM_ITS ---
Subjective Subjective Date of Service: 10/12/23 Interval History: Seen and examined this morning Follow-up for NSTEMI had documented chest pain early this am, patient does not recall Review of Systems Review of Systems: Yes all other systems are reviewed and are negative Constitutional Constitutional: Denies fever(s) Eyes Eyes: Denies blurry vision ENT Ears, Nose, Mouth, and Throat: Denies sore throat Cardiovascular Cardiovascular: Denies chest pain and Denies dyspnea Respiratory Respiratory: Denies cough and Denies dyspnea Gastrointestinal Gastrointestinal: Denies abdominal pain, Denies nausea and Denies vomiting Musculoskeletal Musculoskeletal: Denies back pain, Reports arthralgias, Denies joint swelling and Denies limited range of motion Integumentary/Breasts Skin/Breast: Denies rash Physical Exam 2 Vital Signs: Vital Signs: Last Vital Signs Temp 97.8 F 10/12/23 10:57 Pulse 64 10/12/23 10:57 Resp 20 10/12/23 10:57 BP 117/55 L 10/12/23 10:57 Pulse Ox 96 10/12/23 10:57 O2 Del Method Room Air 10/12/23 10:57 O2 Flow Rate 2 10/10/23 13:53 BMI result Body Mass Index 27.3 Appearing in no acute distress lung sounds are clear to auscultation heart regular rate rhythm, clear S1, S2 positive bowel sounds, abdomen is soft, nontender neuro patient is alert x3, no focal deficits Objective Data Active Medications Acetaminophen (Acetaminophen 325 Mg Tablet) 650 mg PO Q6H PRN PRN Reason: mild pain, headache or fever Last Admin: 10/12/23 06:17 Dose: 650 mg Documented By: MARK ANTHONY Aspirin (Aspirin Enteric Coated 81 Mg Tablet.) 81 mg PO DAILY [facility] Last Admin: 10/12/23 09:18 Dose: 81 mg Documented By: SANDRA Atorvastatin Calcium (Atorvastatin Calcium 80 Mg Tablet) 80 mg PO BEDTIME [facility] Last Admin: 10/11/23 20:39 Dose: 80 mg Documented By: MARKA NTHONY Clopidogrel Bisulfate (Clopidogrel Bisulfate 75 Mg Tablet) 75 mg PO DAILY [facility] Last Admin: 10/12/23 09:19 Dose: 75 mg Documented By: SANDRA Heparin Sodium (Porcine) (Heparin Sodium,Porcine 5,000 Unit/Ml Vial) 2,700 unit 40 unit/kg (2700 unit) IVPUSH PROTOCOL BOLUS PRN; Protocol PRN Reason: 40 unit/kg - Heparin Protocol Last Admin: 10/11/23 12:02 Dose: 2,700 unit Documented By: LOREN Heparin Sodium (Porcine) (Heparin Sodium,Porcine 5,000 Unit/Ml Vial) 5,400 unit 80 unit/kg (5400 unit) IVPUSH PROTOCOL BOLUS PRN; Protocol PRN Reason: 80 unit/kg - Heparin Protocol Hydroxyurea (Hydroxyurea 500 Mg Capsule) 500 mg PO TUTHSA@0900 KRISTIE Heparin Sodium/Sodium Chloride (Heparin Sodium,Porcine/1/2ns) 25,000 unit in 250 mls @ 0 mls/hr IVCONT .Q0M [facility]; Protocol Stop: 10/12/23 21:59 Last Titration: 10/12/23 06:41 Dose: 14 units/kg/hr, 9.49 mls/hr Documented By: MARK ANTHONY Co-signed By: BROOKS Ceftriaxone Sodium 1 gm/ (Sodium Chloride) 50 mls @ 100 mls/hr IV Q24H [facility] Last Infusion: 10/11/23 21:35 Dose: Infused Documented By: MARK ANTHONY Latanoprost (Latanoprost 0.005 % Ophth Kay 2.5 Ml Drops) 1 drop EYE-BOTH BEDTIME [facility] Last Admin: 10/11/23 23:44 Dose: Not Given Documented By: MARK ANTHONY Non-Admin Reason: IV Running Metoprolol Tartrate (Metoprolol Tartrate 12.5 Mg Halftab) 12.5 mg PO BID [facility]; Protocol Last Admin: 10/12/23 09:19 Dose: 12.5 mg Documented By: SANDRA Nitroglycerin (Nitroglycerin 2 % Oint 1 Gm Packet) 0.5 inch TRANSDERMA RQ6H WHILE AWAKE [facility] Last Admin: 10/12/23 09:17 Dose: 0.5 inch Documented By: SANDRA Sodium Chloride (0.9 % Sodium Chloride Flush 3 Ml Syringe) 3 ml IVFLUSH QSHIFT [facility] Last Admin: 10/12/23 09:20 Dose: 3 ml Documented By: SANDRA Labs 10/12/23 06:04 10/11/23 08:39 Labs: Laboratory Results - last 24 hr 10/11/23 10/11/23 10/11/23 11:34 17:31 23:39 MCV MCH MCHC RDW Plt Count MPV Absolute Nucleated RBC Nucleated RBC % (auto) aPTT Heparin Protocol 40.2 L 65.2 D 61.8 10/12/23 06:04 MCV 96.6 MCH 32.6 MCHC 33.8 RDW 14.6 Plt Count 212 MPV 13.5 H Absolute Nucleated RBC 0.000 Nucleated RBC % (auto) 0.0 aPTT Heparin Protocol 55.7 Microbiology Microbiology Results: Microbiology 10/10/23 Unknown Urine Culture - Final Urine Catheterized - [place] Catheter 10/10/23 00:40 Blood Culture - Preliminary Blood - Venous No growth after 48 hours. 10/10/23 00:40 Blood Culture - Preliminary Blood - Venous No growth after 48 hours. Assessment and Plan (1) Acute myocardial infarction: Status: Acute (2) Urinary tract infection: Status: Acute Plan This is a 88 y/o woman admitted with ACS on heparin drip Acute coronary syndrome/NSTEMI ASA 81 mg p.o. daily, metoprolol and high-intensity statin, Plavix, nitro paste Continue IV heparin for 72 hours (10/12/23) Cardiology following - plan for conservative management as above, no plan for transfer or cardiac catheterization at this time LBBB. No old ECGs available for comparison. Urinary tract infection. no sepsis. Leukocytosis likely reactive due to fall/NSTEMI Continue ceftriaxone 1 g IV daily. Urine culture mixed Fall PT consult pending Hyperlipidemia. Continue statin. CKD stage 3A. Continue to monitor renal function. Essential hypertension. Continue metoprolol. Essential thrombocytosis. Continue hydroxyurea. Code status: Full Attending Dr. Vazquez DVT prophylaxis: Heparin IV infusion continue hospital tx for ACS therapy with aspirin, heparin IV infusion, statin and beta blockers; and evaluation by subspecialty. Quality Stroke Does the patient have a stroke diagnosis?: No VTE Prior VTE?: No VTE Risk Level:: Medical - moderate - high VTE Device Contraindication: Treatment Not Indicated VTE Drug Contraindication: N/A - Med Ordered
--- NOTE | 2023-10-12 12:24 | PM.PNCARD ---
Subjective Subjective Date of Service: 10/12/23 Principal diagnosis: Acute myocardial infarction Interval history: Seen examined at bedside. No significant symptoms. Mental status improving with antibiotics. Physical Exam Vital Signs: Last Vital Signs Temp 97.8 F 10/12/23 10:57 Pulse 64 10/12/23 10:57 Resp 20 10/12/23 10:57 BP 117/55 L 10/12/23 10:57 Pulse Ox 96 10/12/23 10:57 O2 Del Method Room Air 10/12/23 10:57 O2 Flow Rate 2 10/10/23 13:53 BMI result Body Mass Index 27.3 GENERAL APPEARANCE: in no acute distress, pleasant. NECK: no carotid bruit, no jugular venous distention. SKIN: no suspicious lesions, warm and dry. HEART: no murmurs, regular rate and rhythm. LUNGS: clear to auscultation bilaterally. ABDOMEN: soft, nontender. EXTREMITIES: no edema. PERIPHERAL PULSES: equal. NEUROLOGIC: No gross deficits, AAO X 3 Const Other: forgetful General: cooperative, comfortable, alert and awake Nutritional Appearance: average body habitus Resp Effort & Inspection: normal respiratory effort, able to speak in complete sentences, no respiratory distress and no use of accessory muscles Cardio Rate: regular rate GI Inspection: No distended Palpation (GI): Soft to palpation Neuro General: moves all extremities and CN's II-XI intact bilaterally Extrem General: Yes no pedal edema Objective Labs and Meds 10/12/23 06:04 10/11/23 08:39 Lab results: Laboratory Results - last 24 hr 10/11/23 10/11/23 10/12/23 17:31 23:39 06:04 WBC 14.1 H RBC 3.25 L Hgb 10.6 L Hct 31.4 L MCV 96.6 MCH 32.6 MCHC 33.8 RDW 14.6 Plt Count 212 MPV 13.5 H Absolute Nucleated RBC 0.000 Nucleated RBC % (auto) 0.0 aPTT Heparin Protocol 65.2 D 61.8 55.7 Progress Note: A&P Assessment and plan (1) Chronic kidney disease, stage III (moderate): Status: Acute (2) ACS (acute coronary syndrome): Status: Acute Plan [age] year female with CKD stage 3, hyperlipidemia and hypertension who presented with urinary tract infection and confusion and ruled in for NSTEMI. ECHO has shown LV dysfunction in the LAD territory. Clinically asymptomatic. On heparin drip currently. Plan is conservative management for now. Would ambulate the patient to see if she gets any symptoms because she came confused and did not have any chest discomfort shortness of breath. If she has any chest discomfort with activity then we may have to consider alternative approach//cardiac catheterization. I have discussed this with the patient but due to kidney disease she is reluctant to consider any procedures currently. Thank you for allowing me to participate in the care of your patient. Please feel free to contact me if you have any questions. Time Spent With Patient Time: Total time managing care of this patient today ____ minutes. Progress Note: Quality Stroke Does the patient have a stroke diagnosis?: No Procedures Date of Service Date of Service: 10/12/23
[2023-10-12] MEDS: Heparin Sodium,Porcine/1/2NS 25,000 UNIT/250 ML IV.SOLN 9.49 UNIT IVCONT (14:17)
[2023-10-12] MEDS: cefTRIAXone sodium 1 GM in 0.9 % Sodium Chloride 50 ML IV (20:30)
[2023-10-12] MEDS: Atorvastatin Calcium 80 MG TABLET PO (20:30)
[2023-10-12] MEDS: 0.9 % Sodium Chloride Flush 3 ML SYRINGE IVFLUSH (20:31)
[2023-10-12] MEDS: Latanoprost 0.005 % Ophth Sol 2.5 ML DROPS 1 DROP EYE-BOTH (21:51)
[2023-10-13] VITALS: BP 111/54; PULSE 60; RESP 20; TEMP 36.6; O2SAT 97
--- NOTE | 2023-10-13 | ECG_ITS ---
Test Reason : afib Blood Pressure : / mmHG Vent. Rate : 074 BPM Atrial Rate : 000 BPM P-R Int : 000 ms QRS Dur : 150 ms QT Int : 466 ms P-R-T Axes : 000 -41 153 degrees QTc Int : 517 ms Atrial fibrillation Left axis deviation Left bundle branch block Abnormal ECG When compared with ECG of 12-OCT-2023 13:04, Atrial fibrillation has replaced Sinus rhythm Referred By: Pina Perez Electronically Signed By:JOEY KAUR MD
[2023-10-13] MEDS: LORazepam 2 MG/ML VIAL 1 MG IVPUSH (02:19)
--- NOTE | 2023-10-13 03:32 | PC.NURSE ---
Patient in afib since approximately 0200- feels anxious, cant sleep, however difficult to determine whether these symptoms were exacerbated via cardiac rhythm as patient was already anxious at beginning of shift while in SR. Otherwise, general feeling of uneasiness, but no other symptoms. Rate controlled 70's at this time. MD Freddie aware.
[2023-10-13 04:00] VITALS: BP 112/53; PULSE 83; RESP 20; TEMP 36.6; O2SAT 96
[2023-10-13 04:27] LABS: PTT Heparin Drip 32.4 SEC (53-77.9)
[2023-10-13 08:00] VITALS: BP 123/58; PULSE 81; RESP 20; TEMP 36.8; O2SAT 96
[2023-10-13] MEDS: Hydroxyurea 500 MG CAPSULE PO (09:59)
[2023-10-13] MEDS: Clopidogrel Bisulfate 75 MG TABLET PO (09:59)
[2023-10-13] MEDS: Metoprolol Tartrate 12.5 MG HALFTAB PO (09:59)
[2023-10-13] MEDS: Aspirin Enteric Coated 81 MG TABLET.DR PO (09:59)
[2023-10-13] MEDS: 0.9 % Sodium Chloride Flush 3 ML SYRINGE IVFLUSH ×2 (10:01→14:17)
--- NOTE | 2023-10-13 10:11 | P.PNIM_ITS ---
Subjective Subjective Date of Service: 10/13/23 Interval History: Seen and examined this morning Follow-up for NSTEMI had documented chest pain early this am, patient does not recall Review of Systems Review of Systems: Yes all other systems are reviewed and are negative Constitutional Constitutional: Denies fever(s) Eyes Eyes: Denies blurry vision ENT Ears, Nose, Mouth, and Throat: Denies sore throat Cardiovascular Cardiovascular: Denies chest pain and Denies dyspnea Respiratory Respiratory: Denies cough and Denies dyspnea Gastrointestinal Gastrointestinal: Denies abdominal pain, Denies nausea and Denies vomiting Musculoskeletal Musculoskeletal: Denies back pain, Reports arthralgias, Denies joint swelling and Denies limited range of motion Integumentary/Breasts Skin/Breast: Denies rash Physical Exam 2 Vital Signs: Vital Signs: Last Vital Signs Temp 98.3 F 10/13/23 08:00 Pulse 81 10/13/23 08:00 Resp 20 10/13/23 08:00 BP 123/58 L 10/13/23 08:00 Pulse Ox 96 10/13/23 08:00 O2 Del Method Room Air 10/13/23 08:00 O2 Flow Rate 2 10/10/23 13:53 BMI result Body Mass Index 27.3 Objective Data Active Medications Acetaminophen (Acetaminophen 325 Mg Tablet) 650 mg PO Q6H PRN PRN Reason: mild pain, headache or fever Last Admin: 10/12/23 20:30 Dose: 650 mg Documented By: CHIOMA Aspirin (Aspirin Enteric Coated 81 Mg Tablet.) 81 mg PO DAILY [facility] Last Admin: 10/13/23 09:59 Dose: 81 mg Documented By: MARY Atorvastatin Calcium (Atorvastatin Calcium 80 Mg Tablet) 80 mg PO BEDTIME [facility] Last Admin: 10/12/23 20:30 Dose: 80 mg Documented By: CHIOMA Clopidogrel Bisulfate (Clopidogrel Bisulfate 75 Mg Tablet) 75 mg PO DAILY [facility] Last Admin: 10/13/23 09:59 Dose: 75 mg Documented By: MARY Hydroxyurea (Hydroxyurea 500 Mg Capsule) 500 mg PO TUTHSA@0900 [facility] Last Admin: 10/13/23 09:59 Dose: 500 mg Documented By: MARY Ceftriaxone Sodium 1 gm/ (Sodium Chloride) 50 mls @ 100 mls/hr IV Q24H [facility] Last Infusion: 10/12/23 21:11 Dose: Infused Documented By: CHIOMA Latanoprost (Latanoprost 0.005 % Ophth Kay 2.5 Ml Drops) 1 drop EYE-BOTH BEDTIME [facility] Last Admin: 10/12/23 21:51 Dose: 1 drop Documented By: CHIOMA Metoprolol Tartrate (Metoprolol Tartrate 12.5 Mg Halftab) 12.5 mg PO BID [facility]; Protocol Last Admin: 10/13/23 09:59 Dose: 12.5 mg Documented By: MARY Nitroglycerin (Nitroglycerin 2 % Oint 1 Gm Packet) 0.5 inch TRANSDERMA RQ6H WHILE AWAKE [facility] Last Admin: 10/13/23 09:01 Dose: Not Given Documented By: MARY Non-Admin Reason: Physician Held Med Sodium Chloride (0.9 % Sodium Chloride Flush 3 Ml Syringe) 3 ml IVFLUSH QSHIFT [facility] Last Admin: 10/13/23 10:01 Dose: 3 ml Documented By: MARY Labs 10/12/23 06:04 10/11/23 08:39 Labs: Laboratory Results - last 24 hr 10/13/23 04:01 aPTT Heparin Protocol 32.4 L D Microbiology Microbiology Results: Microbiology 10/10/23 Unknown Urine Culture - Final Urine Catheterized - [place] Catheter Assessment and Plan (1) Acute myocardial infarction: Status: Acute (2) Urinary tract infection: Status: Acute Plan This is a 88 y/o woman admitted with ACS on heparin drip New onset afib will discuss with cardiology routine EKG showing afib with no rvr Acute coronary syndrome/NSTEMI ASA 81 mg p.o. daily, metoprolol and high-intensity statin, Plavix, nitro paste s/p IV heparin for 72 hours (10/12/23) Cardiology following - plan for conservative management as above, no plan for transfer or cardiac catheterization at this time LBBB. No old ECGs available for comparison. Urinary tract infection. no sepsis. Leukocytosis likely reactive due to fall/NSTEMI Continue ceftriaxone 1 g IV daily. Urine culture mixed Fall PT consult>rec home with services Hyperlipidemia. Continue statin. CKD stage 3A. Continue to monitor renal function. Essential hypertension. Continue metoprolol. Essential thrombocytosis. Continue hydroxyurea. Code status: Full Attending Dr. Vazquez DVT prophylaxis: Heparin IV infusion completed sc heparin continue hospital tx for ACS therapy with aspirin, heparin IV infusion, statin and beta blockers; and evaluation by subspecialty. Quality Stroke Does the patient have a stroke diagnosis?: No VTE Prior VTE?: No VTE Risk Level:: Medical - moderate - high VTE Device Contraindication: Treatment Not Indicated VTE Drug Contraindication: N/A - Med Ordered
[2023-10-13 11:57] VITALS: BP 113/56; PULSE 78; RESP 20; TEMP 36.2; O2SAT 96
[2023-10-13] MEDS: Heparin Sodium,Porcine 5,000 UNIT/ML VIAL 5000 UNIT SUBCUT (14:15)
[2023-10-13 16:00] VITALS: BP 124/54; PULSE 80; RESP 16; TEMP 36.6; O2SAT 97
--- NOTE | 2023-10-13 17:48 | P.DS_ITS ---
DS: Providers Provider Date of Service: 10/13/23 Date of admission: 10/10/23 01:42 Primary care physician: Dimitrios Cook MD Consults: 10/10/23 01:45 Consult to Cardiology Routine Consulting Provider: [facility] Reason for consultation: Myocardial infarction Has provider been notified: Yes DS: Diagnosis Discharge Diagnosis (1) Acute myocardial infarction: Status: Acute (2) Urinary tract infection: Status: Acute DS: Summary Hospital Course Hospital Course: HP as per admitting provider. Debbie Tavarez is a 88 years old woman with past [facility] history significant for hyperlipidemia, essential thrombocytosis on hydroxyurea and hypertension was brought to the emergency department via EMS after she was found on the ground covered in stools. by her neighbor. It seems like patient's findings and friends were unable to reach patient and her neighbor who has a coronel to her house checked on her. Patient does not recall falling down and denies any symptoms such as dizziness, headache, chest pain or shortness on breath. She also denied any headache, palpitations, cough, fevers chills. Denied any acute gastrointestinal or genitourinary symptoms. No head trauma reported. She does have some chronic pain to both knees. Patient denies history of cardiac disease, myocardial infarction or arrhythmias. She does not remember ever being told if her ECGs are abnormal. In the ED, she was found to normal vital signs. Blood workup showed leukocytosis of 23.5. There is no lactic acidosis. Hemoglobin is 14.8 and platelets level is 357. There are no significant electrolyte imbalances except for hyperchloremia. Bicarb is 21 and creatinine 1.10. First troponin came back positive, 2412.2 and the 2nd was increased to 3228.9. AST is 32 and the rest of the LFTs are normal. Urinalysis consistent with urinary tract infection. Head CT scan C-spine showed no acute intracranial abnormality or fractures. CXR showed low lung volumes and no acute pulmonary disease. ECGs are consistent with left bundle branch block. ED tx: Heparin bolus and IV infusion, ceftriaxone 1 g IV, atorvastatin 81 mg PO, metoprolol 25 mg PO and aspirin 324 mg PO. 88-year-old woman treated for NSTEMI. Started on IV heparin drip 5 1823. Continued on aspirin, metoprolol, statin, Plavix and nitropaste. Seen and evaluated by Cardiology. Plan for transfer to [facility] for cardiac catheterization, patient and her healthcare proxy are in agreement. Patient will be transferred with IV heparin drip. New onset atrial fibrillation. Unspecified. Started overnight 10/13/2023. Heart rate controlled 70s to 80s. On beta-deng. No recommendation for anticoagulation as per Cardiology at this time. Encephalopathy. Very brief episode on admission but cleared up fairly quickly, likely secondary to UTI, fall. Urinary tract infection. Initially treated with IV Rocephin, urine culture was mixed. Completed 3 day course of antibiotics Fall. Patient had a fall at home. Seen evaluated by Physical therapy with recommendation for home with services once she is medically clear CKD stage 3. Stable renal function Hypertension. Continue metoprolol Essential thrombocytosis. Continue hydroxyurea Time Attestation Discharge Coordination Time (in mins): 35 Quality: Safe Use of Opioids Does Pt have an Active Cancer Diagnosis on the Problem List?: No Quality: Stroke Does the patient have a stroke diagnosis?: No Physical Exam Vital Signs: Vital Signs: Last Vital Signs Temp 97.9 F 10/13/23 16:00 Pulse 80 10/13/23 16:00 Resp 16 10/13/23 16:00 BP 124/54 L 10/13/23 16:00 Pulse Ox 97 10/13/23 16:00 O2 Del Method Room Air 10/13/23 16:00 O2 Flow Rate 2 10/10/23 13:53 BMI result Body Mass Index 27.3 Appearing in no acute distress head is normocephalic atraumatic eyes pupils are PERRLA sclera is anicteric mouth throat mucous membranes are intact and moist neck is supple no lymphadenopathy, no JVD noted lung sounds are clear to auscultation heart regular rate rhythm, clear S1, S2 positive bowel sounds, abdomen is soft, nontender neuro patient is alert x3, no focal deficits DS: Data Data Completed and Pending Labs on day of discharge: Laboratory Results - last 24 hr 10/13/23 04:01 aPTT Heparin Protocol 32.4 L D Preliminary micro results at discharge 10/10/23 00:40 Blood Culture - Preliminary Blood - Venous No growth after 48 hours. 10/10/23 00:40 Blood Culture - Preliminary Blood - Venous No growth after 48 hours. Discharge Plan Discharge Anticipated Discharge Date/Time: 10/13/23 17:45 Patient Disposition: er Acute Care Hospital Discharge Diagnosis: NSTEMI Fall New onset atrial fibrillation Referrals: Name,MD Dimitrios [Primary Care Provider] - 1 Week Discharge Medications: Continued multivitamin Tablet 1 tab PO DAILY latanoprost 0.005 % drops 1 drp ophthalmic (eye) BEDTIME pravastatin 40 mg tablet 1 tab PO BEDTIME aspirin [Aspir-81] 81 mg Tablet,Delayed Release (Dr/Ec) 81 mg PO DAILY alendronate 70 mg Tablet 70 mg PO WE@0900 losartan 50 mg Tablet 50 mg PO DAILY amlodipine 10 mg tablet 10 mg PO DAILY omega [id number]-fish oil [Fish Oil] 300-1,000 mg Capsule,Delayed Release(Dr/Ec) 1 cap PO BID hydroxyurea 500 mg capsule 1 cap PO TUTHSA@0900 Diet: Advance to usual diet Activity on Discharge: As tolerated Stand Alone Forms: Patient Portal Discharge page Print Language: Argentine Care Plan Goals: Continue IV heparin drip for transfer to tertiary care facility Health Concerns: NSTEMI Fall New onset atrial fibrillation Plan of Treatment: Transferred to [facility] for cardiac catheterization Assessment: See discharge summary
[2023-10-13] MEDS: Heparin Sodium,Porcine/1/2NS 25,000 UNIT/250 ML IV.SOLN 8.14 UNIT IVCONT (18:20)
[2023-10-13 18:42] LABS: PTT Heparin Drip 34.9 SEC (53-77.9)
[2023-10-13 19:10] LABS: Hematocrit 37.7 % (37.0-47.0); Hemoglobin 12.6 g/dl (12.0-16.0); Mean Corpuscular HGB Conc 33.4 g/dl (31.0-35.0); NRBC Pct Auto 0.2 /100WBC (0.0-0.2); Red Cell Distribution Width 14.5 % (11.0-16.0)
[2023-10-13 19:12] LABS: Mean Corpuscular Hemoglobin 32.7 pg (27.0-33.0); Mean Corpuscular Volume 97.9 fL (80.0-98.0); Mean Platelet Volume 13.6 fL (9.4-12.3); Platelet Count 300 X10*3/uL (160-400); Red Blood Count 3.85 X10*6/uL (4.20-5.50); White Blood Count 14.1 X10*3/uL (4.8-10.8)
[2023-10-13 19:28] LABS: PLT ABN DIST 1
--- NOTE | 2023-10-13 21:10 | PM.PNCARD ---
Subjective Subjective Date of Service: 10/13/23 Principal diagnosis: Acute myocardial infarction Interval history: Seen examined at bedside. She has gone into atrial fibrillation today morning. She is rate controlled and has no symptoms. She said she felt little dizzy when she stood up but these symptoms have subsided. No chest discomfort. Physical Exam Vital Signs: Last Vital Signs Temp 97.9 F 10/13/23 16:00 Pulse 80 10/13/23 16:00 Resp 16 10/13/23 16:00 BP 124/54 L 10/13/23 16:00 Pulse Ox 97 10/13/23 16:00 O2 Del Method Room Air 10/13/23 16:00 O2 Flow Rate 2 10/10/23 13:53 BMI result Body Mass Index 27.3 GENERAL APPEARANCE: in no acute distress, pleasant. NECK: no carotid bruit, no jugular venous distention. SKIN: no suspicious lesions, warm and dry. HEART: no murmurs, irregular rate and rhythm. LUNGS: clear to auscultation bilaterally. ABDOMEN: soft, nontender. EXTREMITIES: no edema. PERIPHERAL PULSES: equal. NEUROLOGIC: No gross deficits, AAO X 3 Const Other: forgetful General: cooperative, comfortable, alert and awake Nutritional Appearance: average body habitus Resp Effort & Inspection: normal respiratory effort, able to speak in complete sentences, no respiratory distress and no use of accessory muscles Cardio Rate: regular rate GI Inspection: No distended Palpation (GI): Soft to palpation Neuro General: moves all extremities and CN's II-XI intact bilaterally Extrem General: Yes no pedal edema Objective Labs and Meds 10/13/23 18:10 10/11/23 08:39 Lab results: Laboratory Results - last 24 hr 10/13/23 10/13/23 04:01 18:10 WBC 14.1 H RBC 3.85 L Hgb 12.6 Hct 37.7 D MCV 97.9 MCH 32.7 MCHC 33.4 RDW 14.5 Plt Count 300 D MPV 13.6 H Absolute Nucleated RBC 0.030 H Nucleated RBC % (auto) 0.2 PT 12.0 INR 1.0 aPTT Heparin Protocol 32.4 L D 34.9 L Progress Note: A&P Assessment and plan (1) Non-ST elevation PR (NSTEMI): Status: Acute (2) PAF (paroxysmal atrial fibrillation): Status: Acute (3) Essential thrombocytosis: Status: Chronic Plan 88 year female presenting for fall and UTI ruled in for NSTEMI. She has left bundle-branch block but has precordial T-wave inversions. Echocardiography showing EF of 25 30% with dilated wall motion abnormality. Initally she was conservatively treated thinking that she has dementia but she does not have any significant evidence of dementia. She had UTI and delirium which has improved completely. She also developed atrial fibrillation. I had a detailed discussion with the patient and her family about diagnostic cardiac catheterization. She will discuss with family and decide whether she wishes to go ahead with that. Start heparin drip if she wishes to go to [facility]. If she decides not pursue any invasive assessment for the cardiomyopathy at [facility] than start Eliquis and stop the aspirin. Thank you for allowing me to participate in the care of your patient. Please feel free to contact me if you have any questions. Time Spent With Patient Time: Total time managing care of this patient today ____ minutes. Progress Note: Quality Stroke Does the patient have a stroke diagnosis?: No Procedures Date of Service Date of Service: 10/13/23
== END 2023-10-13 19:15 | disposition short-term general hospital (02) | DRG 281 ==
LOC: HO.ED 21:56 → HO.EDOVER 10-10 01:49 → HO.IMC 10-11 19:12
PROVIDERS: Physician Assistant; Physician Assistant Medical; Admitting Provider Internal Medicine; Emergency Provider Internal Medicine; PCP Internal Medicine Geriatric Medicine; Visit Provider Nurse Practitioner Acute Care
DX: I21.4 Non-ST elevation (NSTEMI) myocardial infarction (principal); F05 Delirium due to known physiological condition; I51.81 Takotsubo syndrome; N39.0 Urinary tract infection, site not specified; G93.49 Other encephalopathy; I12.9 Hypertensive chronic kidney disease with stage 1 through stage 4 chronic kidney disease, or unspecified chronic kidney disease; I48.0 Paroxysmal atrial fibrillation; D47.3 Essential (hemorrhagic) thrombocythemia; N18.31 Chronic kidney disease, stage 3a; E78.5 Hyperlipidemia, unspecified; Z79.82 Long term (current) use of aspirin; Z79.899 Other long term (current) drug therapy
CPT/HCPCS: 36415; 70450; 71045; 72125; 80048; 80053; 80061; 81001; 82550; 82947; 83036; 83605; 83690; 83880; 84484; 85025; 85027; 85610; 85730; 87040; 87086; 93005; 93306; 97116; 97162; 99285; J0696; J1644; J2060; J2270; J2405; Q9957

== ENCOUNTER → 2023-10-09 20:13 | Outpatient (BNV) | payer MEDICARE, SELFPAY | PROVIDERS: Admitting Provider Internal Medicine; Emergency Provider Internal Medicine; Visit Provider Internal Medicine Cardiovascular Disease | DX: R07.9 Chest pain, unspecified (principal) | CPT/HCPCS: 93010 ==

== ENCOUNTER 2023-10-10 01:42 | Outpatient (BNV) | payer MEDICARE, SELFPAY | END 2023-10-10 05:26 | PROVIDERS: Admitting Provider Internal Medicine; Emergency Provider Internal Medicine; Visit Provider Internal Medicine Cardiovascular Disease | DX: I21.3 ST elevation (STEMI) myocardial infarction of unspecified site (principal); I36.1 Nonrheumatic tricuspid (valve) insufficiency; I34.0 Nonrheumatic mitral (valve) insufficiency | CPT/HCPCS: 93320; 93325; 93351; 93352 ==

== ENCOUNTER 2023-10-10 01:42 | Outpatient (BNV) | payer MEDICARE, SELFPAY | END 2023-10-12 13:04 | PROVIDERS: Admitting Provider Internal Medicine; Emergency Provider Internal Medicine; Visit Provider Internal Medicine Cardiovascular Disease | DX: I44.7 Left bundle-branch block, unspecified (principal); R94.31 Abnormal electrocardiogram [ECG] [EKG] | CPT/HCPCS: 93010 ==

== ENCOUNTER 2023-10-10 01:42 | Outpatient (BNV) | payer MEDICARE, SELFPAY | END 2023-10-13 10:36 | PROVIDERS: Admitting Provider Internal Medicine; Emergency Provider Internal Medicine; PCP Internal Medicine Geriatric Medicine; Visit Provider Internal Medicine Cardiovascular Disease | DX: I48.91 Unspecified atrial fibrillation (principal); I44.7 Left bundle-branch block, unspecified | CPT/HCPCS: 93010 ==

== ENCOUNTER → 2023-10-10 01:42 | Outpatient (BNV) | payer MEDICARE, SELFPAY | PROVIDERS: Admitting Provider Internal Medicine; Emergency Provider Internal Medicine; Visit Provider Internal Medicine Cardiovascular Disease | DX: I21.9 Acute myocardial infarction, unspecified (principal) | CPT/HCPCS: 99222; 99233 ==

== ENCOUNTER → 2023-10-10 01:42 | Outpatient (BNV) | payer MEDICARE, SELFPAY | PROVIDERS: Admitting Provider Internal Medicine; Emergency Provider Internal Medicine; Visit Provider Internal Medicine | DX: N30.00 Acute cystitis without hematuria (principal); D47.3 Essential (hemorrhagic) thrombocythemia; I24.9 Acute ischemic heart disease, unspecified; N18.31 Chronic kidney disease, stage 3a; E78.5 Hyperlipidemia, unspecified; I10 Essential (primary) hypertension; I21.9 Acute myocardial infarction, unspecified | CPT/HCPCS: 99223; 99232; 99233; 99239; 99499 ==

== ENCOUNTER → 2023-10-14 23:59 | Outpatient (BNV) | payer MEDICARE, SELFPAY | PROVIDERS: PCP Internal Medicine Geriatric Medicine; Visit Provider Internal Medicine Cardiovascular Disease | DX: I21.4 Non-ST elevation (NSTEMI) myocardial infarction (principal); I42.9 Cardiomyopathy, unspecified | CPT/HCPCS: 93458; 99152 ==

== ENCOUNTER 2023-10-20 11:19 | Outpatient (AMB) | payer MEDICARE, SELFPAY ==
[2023-10-20 11:30] VITALS: BP 170/70; PULSE 74; TEMP 36.4; O2SAT 95; BMI 28.0
--- NOTE | 2023-10-20 11:30 | AM.OFFWIN_ITS ---
Intake Vital Signs 10/20/23 11:30 Height 5 ft 2 in Weight 153 lb BMI 28.0 BP 170/70 H Blood Pressure Location Lt brachial Position Sitting Pulse 74 Pulse Source Pulse Oximeter Temp 97.5 F Temp Source Temporal Artery Scan Pulse Oximetry (%) 95 Oxygen Delivery Method Room Air Intake Visit Reasons: EST/chest tightness/trouble breathing(lobby) Intake Note: pt is here today for chest tightness and trouble breathing started today Patient Tobacco Use Status: Never used Tobacco Allergies hydromorphone [From DILAUDID] Allergy (Intermediate, Verified 10/20/23 11:35) ITCHY ALL OVER Do you need a note to return to daycare/school/sports/work: No HPI EST/chest tightness/trouble breathing(lobby) HPI Details 88-year-old female presents to the [facility] for a sick visit. Patient is reporting symptoms of shortness of breath this morning. VNA at her home felt her lung bases had crackles and suggested that she be seen here for an evaluation. Patient was discharged recently from [facility] with a diagnosis of non ST elevation myocardial infarction, atrial fibrillation. Recently anticoagulants have been started. Her neighbor drove the patient here. Since arrival at the clinic, her shortness of breath symptoms have resolved. Reports no chest pains. [facility] Medical History Chronic kidney disease, stage III (moderate) Dyslipidemia Glaucoma HTN (hypertension) Chronic dermatitis Thrombocytopenia Surgical History Hx of partial nephrectomy History of bilateral knee replacement Family History Mother Breast cancer Brother Alzheimers disease Son Stroke Rectal adenocarcinoma Social History Household Members: Spouse and None Housing: House Alcohol intake: former Patient Tobacco Use Status: Never used Tobacco service: No Current occupational status: retired Physical Exam Vital Signs: Last Vital Signs Temp 97.5 F 10/20/23 11:30 Pulse 74 10/20/23 11:30 BP 170/70 H 10/20/23 11:30 Pulse Ox 95 10/20/23 11:30 Oxygen Delivery Method Room Air 10/20/23 11:30 BMI result Body Mass Index 28.0 Const General: cooperative and healthy appearing Nutritional Appearance: well nourished Orientation/consciousness: patient oriented x3 Limitations: no limitations HEENT Head: Yes normal to inspection Eyes General: appearance normal, both eyes and all related structures Neck Neck: Yes normal visual inspection Chest Chest palpation & inspection: normal palpation of entire chest wall Resp Effort & Inspection: normal respiratory effort Cardio Rate: regular rate Rhythm: regular rhythm Heart sounds: S1 normal heart sound present and S2 normal heart sound present Skin Other: Scattered bruises without any edema. Neuro General: patient oriented x3 Office Procedures EKG Details: Abnormal. LBBB. No change when compared to prior [id number], Complete Assessment & Plan Assessment & Plan (1) Shortness of breath: Code(s): R06.02 - Shortness of breath Plan Patient is hemodynamically stable. EKG is at baseline. XR shows new pleural effusion on the left side. BP is elevated. Advised patient to increase the losartan dose to 100 mg once a day till she sees her PCP. If sx of SOB recur or gets worse, to proceed to the ER . Orders: Orders XR chest 2V Today R05.9 - Cough, unspecified AMB EKG-In Office Today R07.9 - Chest pain, unspecified Coding Level of Care Code New Pt Level 4 (82522) Diagnoses Shortness of breath R06.02 CPT Codes EKG - CPT: 17406-[id number], Complete ([id number])
== END 2023-10-20 12:42 | disposition home or self-care (01) ==
PROVIDERS: PCP Internal Medicine Geriatric Medicine; Visit Provider Internal Medicine
DX: R06.02 Shortness of breath (principal)
CPT/HCPCS: 93000; 99204

== ENCOUNTER 2023-10-20 11:50 | Outpatient (REF) | payer MEDICARE, SELFPAY ==
--- NOTE | ~2023-10-20 | XR_ITS ---
EXAMINATION: XR CHEST CLINICAL INFORMATION: Cough. COMPARISON: Chest radiograph dated 10/09/2023. TECHNIQUE: 2 views of the chest were obtained. FINDINGS: Interstitial and pulmonary vascular prominence, new when compared to the prior examination. Small bilateral pleural effusions, new when compared to the prior examination. Adjacent bibasilar atelectasis versus early infiltrates. No pneumothorax. Stable cardiomediastinal silhouette. XR/XR chest 2V IMPRESSION: Interstitial and pulmonary vascular prominence with small bilateral pleural effusions and adjacent atelectasis versus early infiltrates, new when compared to the prior examination. Findings can be seen in the setting of pulmonary edema.
== END 2023-10-20 11:51 | disposition home or self-care (01) ==
LOC: HO.HMGCX 11:50
PROVIDERS: PCP Internal Medicine Geriatric Medicine; Visit Provider Internal Medicine
DX: R05.9 Cough, unspecified (principal)
CPT/HCPCS: 71046

== ENCOUNTER 2023-11-04 09:54 | Outpatient (REF) | payer MEDICARE, SELFPAY ==
[2023-11-04 10:08] LABS: MANUAL DIFF FLAG NO
[2023-11-04 11:12] LABS: Basophils Absolute Auto 0.1 X10*3/uL (0.0-0.2); Basophils Percent Auto 0.5 % (0-2); Eosinophils Absolute Auto 0.1 X10*3/uL (0.0-0.4); Eosinophils Percent Auto 0.5 % (0-4); Hematocrit 40.7 % (37.0-47.0); Hemoglobin 13.7 g/dl (12.0-16.0); Imm Gran Abs Auto 0.24 X10*3/uL (0.00-0.03); Imm Gran Pct Auto 1.8 % (0.0-0.4); Lymphocytes Absolute Auto 1.3 X10*3/uL (1.2-4.9); Mean Corpuscular HGB Conc 33.7 g/dl (31.0-35.0); Mean Corpuscular Hemoglobin 33.3 pg (27.0-33.0); Mean Corpuscular Volume 98.8 fL (80.0-98.0); Monocytes Absolute Auto 0.4 X10*3/uL (0.1-1.2); Monocytes Percent Auto 3.3 % (2-11); Neutrophils Percent Auto 83.9 % (45-73); Red Blood Count 4.12 X10*6/uL (4.20-5.50); Red Cell Distribution Width 15.7 % (11.0-16.0); White Blood Count 13.1 X10*3/uL (4.8-10.8)
[2023-11-04 11:26] LABS: Anion Gap 16 (12-20); Blood Urea Nitrogen 25 mg/dL (9-16); Calcium 9.5 mg/dL (8.4-10.2); Carbon Dioxide 17 mmol/L (22-29); Chloride 111 mmol/L (96-108); Estimated Glomerular Filt Rate 56; Glucose Random 82 mg/dL (60-115); Potassium 5.1 mmol/L (3.3-5.1); Sodium 139 mmol/L (135-145)
[2023-11-04 11:47] LABS: Platelet Count 247 X10*3/uL (160-400)
== END 2023-11-04 09:55 | disposition home or self-care (01) ==
LOC: HO.LAB 09:54
PROVIDERS: PCP Internal Medicine Geriatric Medicine; Visit Provider Nurse Practitioner Family
DX: I48.91 Unspecified atrial fibrillation (principal)
CPT/HCPCS: 36415; 80048; 85025

== ENCOUNTER 2023-12-01 12:52 | Outpatient (REF) | payer MEDICARE, SELFPAY | END 2023-12-01 12:53 | disposition home or self-care (01) | LOC: HO.HHCL 12:52 | PROVIDERS: Visit Provider Nurse Practitioner Family | DX: R30.0 Dysuria (principal) | CPT/HCPCS: 87086; 87088; 87186 ==

== ENCOUNTER 2023-12-15 09:46 | Outpatient (REF) | payer MEDICARE, SELFPAY | END 2023-12-15 09:47 | disposition home or self-care (01) | LOC: HO.HHCLNP 09:46 | PROVIDERS: Visit Provider Nurse Practitioner Family | DX: N30.00 Acute cystitis without hematuria (principal) | CPT/HCPCS: 87086 ==

== ENCOUNTER 2023-12-22 10:38 | Outpatient (REF) | payer MEDICARE, SELFPAY ==
[2023-12-22 11:38] LABS: MANUAL DIFF FLAG NO
[2023-12-22 11:50] LABS: Anion Gap 11 (12-20); Blood Urea Nitrogen 15 mg/dL (9-16); Calcium 10.5 mg/dL (8.4-10.2); Carbon Dioxide 23 mmol/L (22-29); Chloride 107 mmol/L (96-108); Estimated Glomerular Filt Rate > 60; Glucose Random 94 mg/dL (60-115); Potassium 4.4 mmol/L (3.3-5.1); Sodium 137 mmol/L (135-145)
[2023-12-22 12:02] LABS: Basophils Absolute Auto 0.1 X10*3/uL (0.0-0.2); Basophils Percent Auto 0.6 % (0-2); Eosinophils Absolute Auto 0.1 X10*3/uL (0.0-0.4); Eosinophils Percent Auto 0.8 % (0-4); Hematocrit 42.5 % (37.0-47.0); Hemoglobin 13.9 g/dl (12.0-16.0); Imm Gran Abs Auto 0.12 X10*3/uL (0.00-0.03); Imm Gran Pct Auto 1.2 % (0.0-0.4); Lymphocytes Absolute Auto 1.2 X10*3/uL (1.2-4.9); Lymphocytes Percent Auto 11.7 % (20-40); Mean Corpuscular HGB Conc 32.7 g/dl (31.0-35.0); Mean Corpuscular Hemoglobin 31.1 pg (27.0-33.0); Mean Corpuscular Volume 95.1 fL (80.0-98.0); Monocytes Absolute Auto 0.3 X10*3/uL (0.1-1.2); Monocytes Percent Auto 3.2 % (2-11); Neutrophils Absolute Auto 8.3 x10*3/uL (2.0-8.3); Neutrophils Percent Auto 82.5 % (45-73); Platelet Count 237 X10*3/uL (160-400); Red Blood Count 4.47 X10*6/uL (4.20-5.50); Red Cell Distribution Width 14.1 % (11.0-16.0); White Blood Count 10.1 X10*3/uL (4.8-10.8)
[2023-12-22 13:37] LABS: Appearance Urine Cloudy; Color Urine Yellow; Glucose Urine UA Negative (Negative); Leukocyte Esterase Urine Large (3+) (Negative); Nitrite Urine Positive (Negative); UMIC TRIGGER UACC YES; Urine Blood Negative (Negative); Urine Ketones Negative (Negative); Urine Protein Negative (Neg-Trace)
[2023-12-22 13:44] LABS: Bacteria Urine 4+ (None Seen); Hyaline Casts Urine 0-2 /LPF (0-2); RBC Urine 0-2 /HPF (0-2); Squamous Epithelial Cell Urine 0-2 /HPF (0-2); UACC Culture Trigger YES; WBC Urine >50 /HPF (0-5)
== END 2023-12-22 10:39 | disposition home or self-care (01) ==
LOC: HO.HHCL 10:38
PROVIDERS: Visit Provider Internal Medicine Geriatric Medicine
DX: I42.8 Other cardiomyopathies (principal); I10 Essential (primary) hypertension; N39.0 Urinary tract infection, site not specified
CPT/HCPCS: 36415; 80048; 81001; 85025; 87086; 87088; 87186

== ENCOUNTER 2024-01-06 13:26 | Outpatient (REF) | payer MEDICARE, SELFPAY ==
[2024-01-06 16:14] LABS: Appearance Urine Turbid; Color Urine Yellow; Glucose Urine UA Negative (Negative); Leukocyte Esterase Urine Trace (Negative); Nitrite Urine Negative (Negative); PH 5.5 (5.0-9.0); Specific Gravity - Urine 1.015 (1.005-1.025); UMIC TRIGGER UACC YES; Urine Blood Negative (Negative); Urine Ketones Negative (Negative); Urine Protein Negative (Neg-Trace)
[2024-01-06 16:28] LABS: Bacteria Urine None Seen (None Seen); Hyaline Casts Urine 0-2 /LPF (0-2); RBC Urine 0-2 /HPF (0-2); Squamous Epithelial Cell Urine >20 /HPF (0-2); WBC Urine 0-5 /HPF (0-5)
== END 2024-01-06 13:27 | disposition home or self-care (01) ==
LOC: HO.HHCL 13:26
PROVIDERS: Visit Provider Internal Medicine Geriatric Medicine
DX: R30.0 Dysuria (principal)
CPT/HCPCS: 81001

== ENCOUNTER 2024-01-13 08:28 | Outpatient (AMB) | payer MEDICARE, SELFPAY ==
--- NOTE | 2024-01-13 08:30 | A.OFFVIS_ITS ---
Vital Signs 01/13/24 08:31 Height 5 ft 2 in Weight 141 lb 1.533 oz BMI 25.8 BP 140/62 H Blood Pressure Location Lt brachial Position Sitting Pulse 56 Pulse Source Pulse Oximeter Intake Visit Reasons[place] [facility] [place] Name/AFib, NICM Allergies hydromorphone [From DILAUDID] Allergy (Intermediate, Verified 11/04/23 09:17) ITCHY ALL OVER Medication List - Last Reconciled 01/13/24 by Juan Keating MD apixaban (Eliquis) 5 mg PO BID hydroxyurea 1 cap PO TUTHSA@0900 ketorolac 0.5% 1 drp ophthalmic (eye) losartan 100 mg PO DAILY metoprolol succinate ER 50 mg PO DAILY multivitamin 1 tab PO DAILY omega 6-zqj-zzu-fish oil 300-1,000 mg (Fish Oil) 1 cap PO BID pravastatin 1 tab PO BEDTIME HPI Comments Details: Debbie comes for follow-up after september admission. She has been doing well. She has no cardiac symptoms at current time. As you may be aware in September she was admitted to the hospital with confusion and subsequently ruled in for acute myocardial infarction was transferred to [facility] where she underwent a cardiac catheterization which showed normal coronary arteries. Echocardiogram at that time had shown severe LV systolic dysfunction with LAD territory wall motion abnormality and could have represented a stress-induced cardiomyopathy. She was also noted to have new onset atrial fibrillation at that time. She currently denies any symptoms of palpitation. Denies any symptoms of lightheadedness, syncope. Denies any symptoms of exertional chest pain. No shortness of breath, orthopnea, PND. She occasionally walks with help of a cane but otherwise lives independently. She takes all her medications. Still notices a blood pressure to be elevated in the systolic 140 range. She is concerned about all the diagnoses and she says she has no memory of the entire hospitalization. [facility] Medical History ACS (acute coronary syndrome) Chronic kidney disease, stage III (moderate) Dyslipidemia Glaucoma HTN (hypertension) Chronic dermatitis Thrombocytopenia Surgical History Hx of partial nephrectomy History of bilateral knee replacement Family History Mother Breast cancer Brother Alzheimers disease Son Stroke Rectal adenocarcinoma Social History Household Members: Spouse and None Housing: House Alcohol intake: former Patient Tobacco Use Status: Never used Tobacco service: No Current occupational status: retired Review of Systems Const Denies weakness ENT Denies dizziness Card Denies chest pain, Denies chest pain with activity, Denies syncope, Denies rapid heart rate, Denies pedal edema, Denies edema, Denies leg edema, Denies lightheadedness, Denies palpitations, Denies dyspnea, Denies dyspnea on exertion and Denies orthopnea Resp Denies cough, Denies dyspnea and Denies dyspnea on exertion GI Denies hematochezia and Denies change in stool character Musc Denies abnormal gait, Denies muscle cramps, Denies muscle weakness, Denies numbness, Denies radiating pain into limb and Denies tingling Neuro Denies abnormal gait, Denies dizziness, Denies syncope, Denies numbness, Denies tingling and Denies weakness Endo Denies palpitations Physical Exam Vital Signs: Last Vital Signs Pulse 56 01/13/24 08:31 BP 140/62 H 01/13/24 08:31 BMI result Body Mass Index 25.8 Const General: cooperative, comfortable, no acute distress, well developed, alert and awake Nutritional Appearance: average body habitus and well nourished Orientation/consciousness: patient oriented x3 Limitations: ambulation with cane Neck Neck: Yes trachea midline, Yes supple and Yes no JVD Resp Effort & Inspection: normal respiratory effort Auscultation: clear to auscultation bilaterally Cardio Jugular venous distension: no JVD Palpation: normal PMI Rate: regular rate Rhythm: regular rhythm Heart sounds: S1 normal heart sound present, S2 normal heart sound present, no click, no gallops and no murmurs GI Auscultation: normal bowel sounds Skin General skin exam: no rashes or lesions noted and ecchymosis Neuro General: patient oriented x3 and no focal motor deficits Extrem General: Yes no clubbing, cyanosis or edema Office Procedures EKG Details: EKG shows sinus bradycardia at 51 beats per minute with left bundle-branch block [id number], Complete Assessment & Plan Assessment & Plan (1) Cardiomyopathy: Comment: 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 Nonischemic in nature question stress-induced cardiomyopathy related to acute medical illness and/or left bundle-branch block related. She persists with left bundle-branch block. Advise repeat limited echo in near future, stress-induced cardiomyopathy usually resolve within 2 weeks time. If this is the case then diagnosis of stress- induced cardiomyopathy will be confirmed. If not an if she continues to have persistent severe LV systolic dysfunction consider cardiac resynchronization therapy. Continue neurohormonal modulation with losartan and metoprolol. These can not be maximized given her baseline bradycardia. Blood pressure still elevated and therefore will add amlodipine 2.5 mg to her regimen. Advised to monitor blood pressure at home maintain a log. Goal blood pressure less than 130/84. Encouraged to maintain activity level as tolerated. (2) PAF (paroxysmal atrial fibrillation): Code(s): I48.0 - Paroxysmal atrial fibrillation Category: Medical Plan: Atrial fibrillation, paroxysmal without any obvious symptoms. She could have had atrial fibrillation in the past. She does have significant left atrial enlargement which makes her prone for atrial fibrillation. Continue metoprolol therapy. No indication for antiarrhythmic drug therapy at this point time. Follow-up Holter monitor in near future. Continue lifelong oral anticoagulation therapy with Eliquis. Quarterly renal function test should be pursued. Will follow up in the clinic in 4 weeks after testing. Thank you for allowing me to partake in his care Orders: Orders CA Echo Limited Today I42.9 - Cardiomyopathy, unspecified ECG 3 day holter monitor Today I48.0 - Paroxysmal atrial fibrillation Medications: New amlodipine 2.5 mg PO DAILY 30 tabs 1RF Coding Level of Care Code Est Pt Level 4 (29842) Diagnoses Cardiomyopathy I42.9 PAF (paroxysmal atrial fibrillation) I48.0 CPT Codes EKG - CPT: 89446-[id number], Complete ([id number])
[2024-01-13 08:31] VITALS: BP 140/62; PULSE 56; BMI 25.8
== END 2024-01-13 08:59 | disposition home or self-care (01) ==
PROVIDERS: PCP Internal Medicine Geriatric Medicine; Visit Provider Internal Medicine Cardiovascular Disease
DX: I42.9 Cardiomyopathy, unspecified (principal); I48.0 Paroxysmal atrial fibrillation
CPT/HCPCS: 93010; 99214

== ENCOUNTER → 2024-01-13 08:28 | Outpatient (BNVA) | payer MEDICARE, SELFPAY | PROVIDERS: PCP Internal Medicine Geriatric Medicine; Visit Provider Internal Medicine Cardiovascular Disease | DX: I42.9 Cardiomyopathy, unspecified (principal); I48.0 Paroxysmal atrial fibrillation | CPT/HCPCS: 93005; 99212 ==

== ENCOUNTER → 2024-01-21 13:53 | Outpatient (REF) | payer MEDICARE, SELFPAY ==
--- NOTE | 2024-01-21 14:01 | CA_ITS ---
Transthoracic Echocardiogram Patient (Last, First, Middle): Debbie Tavarez M Gender: Female Date of : 1935 Age: 88 Procedure Date: 01/21/2024 Procedure Type: Transthoracic Echocardiogram Location: OP Height: 157.48 cm Weight: 59.42 kg BSA: 1.60 m2 Heart Rate: 63 bpm BP: 138 / 64 mmHg Cork Cutter: GITA Referring MD: Juan Keating MD Hydraulic Barker Operator: Juan Keating MD Symptoms: I42.9 - Cardiomyopathy, unspecified Study Quality: Adequate ECG Rhythm: Sinus Conclusions: - Normal LV ejection fraction 60-65% with grade 3 diastolic dysfunction Findings Left Ventricle Normal left ventricular size, thickness, and systolic function. The visually estimated ejection fraction is between 60-65%. Spectral Doppler is indicative of a restrictive filling pattern. E/E prime ratio is >15, consistent with elevated filling pressures. Evidence suggests grade III (severe) diastolic dysfunction. There is moderate septal asymmetric hypertrophy. Prior Study Comparison Significant changes compared to prior study dated: 10/10/2023. LV systolic function has normalized Measurements 2D Linear Measurements IVSd: 1.54 0.6-0.9/0.6-1.0 cm LVIDd: 4.48 3.9-5.3/4.2-5.9 cm LVIDd Index: 2.80 2.4-3.2/2.2-3.1 cm/m2 LVIDs: 2.92 2.0-3.6 cm LVPWd: 0.65 0.7-1.1 cm LV Mass: 215.38 67-162/88-224 g LV Mass Index: 134.61 43-95/49-115 g/m2 LVOT Diam: 2.00 3.0+(-)1.3 cm 2D Systolic Function EF 4C: 60.60 >55% EF 2C: 66.00 >55% EF BiP: 64.20 >55% Mitral Valve MV Pk E: 1.08 MV PK A: 0.50 MV Decel Time: 188.00 E/A: 2.20 E'Lateral: 6.87 E'Medial: 4.37 E/E' Med: 24.70 E/E' Lat: 15.70 PHT: 55.00 MVA PHT: 4.00 Decel [place]: 5.74 LVOT LVOT Pk Geoffrey: 1.22 LVOT Mn Geoffrey: 0.81 LVOT VTI: 0.29 LVOT Pk Grad: 6.00 LVOT Mn Grad: 3.00 LVOT Diam: 2.00 LVOT Area: 3.14 Diastolic Function MV Pk E: 1.08 MV Pk A: 0.50 E/A: 2.20 E'Medial: 4.37 E/E' Med: 24.70 E' Laterial: 6.87 E/E' Lat: 15.70 Tricuspid Valve RA Press: 8.00 Updated in Other Vendor System with Status of Final Juan Keating MD electronically signed on 01/21/2024 4:02:00 PM with status of Final
== END ==
LOC: HO.CARD 13:53
PROVIDERS: PCP Internal Medicine Geriatric Medicine; Visit Provider Internal Medicine Cardiovascular Disease
DX: I42.9 Cardiomyopathy, unspecified (principal)
CPT/HCPCS: 93308

== ENCOUNTER → 2024-01-21 14:01 | Outpatient (BNV) | payer MEDICARE, SELFPAY | PROVIDERS: PCP Internal Medicine Geriatric Medicine; Visit Provider Internal Medicine Cardiovascular Disease | DX: I42.2 Other hypertrophic cardiomyopathy (principal); I51.89 Other ill-defined heart diseases | CPT/HCPCS: 93308; 93321; 93325 ==

== ENCOUNTER → 2024-01-26 09:28 | Outpatient (REF) | payer MEDICARE, SELFPAY ==
--- NOTE | 2024-01-26 09:30 | HM_ITS ---
* Total monitoring time 3 days. * Underlying rhythm is sinus with an average rate of 51/Min. About 91% of the time, rate < 60/Min. * Rare supraventricular ectopy. * Rare ventricular ectopy. * 5 pauses noted. Longest, 2.9 seconds at 10:00. * No high-grade AV blocks. * No patient markers or diary events. MTDD
== END ==
LOC: HO.CARD 09:28
PROVIDERS: PCP Internal Medicine Geriatric Medicine; Visit Provider Internal Medicine Cardiovascular Disease
DX: I48.0 Paroxysmal atrial fibrillation (principal)
CPT/HCPCS: 93242

== ENCOUNTER → 2024-01-26 09:30 | Outpatient (BNV) | payer MEDICARE, SELFPAY | PROVIDERS: PCP Internal Medicine Geriatric Medicine; Visit Provider Internal Medicine | DX: I47.10 Supraventricular tachycardia, unspecified (principal) | CPT/HCPCS: 93244 ==

== ENCOUNTER 2024-02-15 10:59 | Outpatient (REF) | payer MEDICARE, SELFPAY ==
--- NOTE | ~2024-02-15 | MM_ITS ---
EXAMINATION: MM SCREENING DIGITAL BREAST TOMOSYNTHESIS, BILATERAL CLINICAL INFORMATION: Screening. Asymptomatic. COMPARISON: Mammography: Comparison is made with available priors TECHNIQUE: Digital breast mammography with tomosynthesis is performed in both the craniocaudal and mediolateral oblique views along with computer-aided detection (CAD). FINDINGS: There are scattered areas of fibroglandular density (ACR BI-RADS breast composition Category b). There are no significant masses, abnormal calcifications, or other abnormalities. MM/MM tomosynthesis screening BI IMPRESSION: No mammographic evidence of malignancy. ASSESSMENT: BI-RADS BI-RADS 1 - Negative RECOMMENDATION: Routine annual mammography screening. 1 year F/U This examination should not preclude the clinical evaluation of a suspicious palpable abnormality. This patient's information was entered into a reminder system with a target due date for their next mammogram. Electronically signed by: Lindsay Cruz DO 02/26/2024 09:21 AM EDT
== END 2024-02-15 11:00 | disposition home or self-care (01) ==
LOC: HO.MAMMO 10:59
PROVIDERS: PCP Internal Medicine Geriatric Medicine; Visit Provider Internal Medicine Geriatric Medicine
DX: Z12.31 Encounter for screening mammogram for malignant neoplasm of breast (principal)
CPT/HCPCS: 77063; 77067

== ENCOUNTER → 2024-02-15 11:00 | Outpatient (BNV) | payer MEDICARE, SELFPAY | PROVIDERS: PCP Internal Medicine Geriatric Medicine; Visit Provider Internal Medicine | DX: Z12.31 Encounter for screening mammogram for malignant neoplasm of breast (principal) | CPT/HCPCS: 77063; 77067 ==

== ENCOUNTER 2024-02-22 11:52 | Outpatient (REF) | payer MEDICARE, SELFPAY ==
[2024-02-22 13:18] LABS: Appearance Urine Turbid; Color Urine Yellow; Glucose Urine UA Negative (Negative); Leukocyte Esterase Urine Trace (Negative); Nitrite Urine Negative (Negative); UMIC TRIGGER UACC YES; Urine Blood Negative (Negative); Urine Ketones Negative (Negative); Urine Protein Negative (Neg-Trace)
[2024-02-22 13:29] LABS: Bacteria Urine None Seen (None Seen); Hyaline Casts Urine 0-2 /LPF (0-2); RBC Urine 0-2 /HPF (0-2); WBC Urine 0-5 /HPF (0-5)
== END 2024-02-22 11:53 | disposition home or self-care (01) ==
LOC: HO.HHCL 11:52
PROVIDERS: Visit Provider Internal Medicine Geriatric Medicine
DX: N39.0 Urinary tract infection, site not specified (principal); R31.9 Hematuria, unspecified
CPT/HCPCS: 81001

== ENCOUNTER 2024-03-03 11:47 | Outpatient (REF) | payer MEDICARE, SELFPAY ==
[2024-03-03 13:20] LABS: Appearance Urine Cloudy; Color Urine Dark Yellow; Glucose Urine UA Negative (Negative); Leukocyte Esterase Urine Small (1+) (Negative); Nitrite Urine Negative (Negative); PH 5.5 (5.0-9.0); UMIC TRIGGER UACC YES; Urine Blood Trace (Negative); Urine Ketones Trace mg/dL (Negative); Urine Protein Trace mg/dL (Neg-Trace)
[2024-03-03 13:26] LABS: Bacteria Urine 1+ (None Seen); Squamous Epithelial Cell Urine >20 /HPF (0-2); UACC Culture Trigger YES
== END 2024-03-03 11:48 | disposition home or self-care (01) ==
LOC: HO.HHCL 11:47
PROVIDERS: Visit Provider Internal Medicine Geriatric Medicine
DX: R30.0 Dysuria (principal)
CPT/HCPCS: 81001; 87086

== ENCOUNTER → 2024-03-08 10:34 | Outpatient (REF) | payer MEDICARE, SELFPAY ==
--- NOTE | ~2024-03-08 | MM_ITS ---
EXAMINATION: BONE DENSITOMETRY CLINICAL INDICATION: Osteoporosis. COMPARISON: Previous BD dated 03/05/2022 and baseline BD dated 07/18/2019. TECHNIQUE: Using a Zollo DXA System (software version: 13.1) manufactured by [employer], dual-energy x-ray absorptiometry was performed of the lumbar spine and left hip. The images are of good technical quality. Summary results are attached. FINDINGS: LEFT FEMUR, NECK: Current: BMD 0.823 g/cm2, Z-score 1.0, T-score -1.5, osteopenia. Prior: BMD 0.814 g/cm2. Baseline: BMD 0.794 g/cm2. LEFT FEMUR, TOTAL: Current: BMD 0.897 g/cm2, Z-score 1.5, T-score -0.9, normal, 0.8% increase from previous, 2.5% increase from baseline (<5% change is not significant). Prior: BMD 0.890 g/cm2. Baseline: BMD 0.875 g/cm2. AP SPINE L3-L4 (excluding L1 and L2): The data of L1-L4 has been changed to exclude the L1 and L2 vertebral bodies, because significant degenerative change at these levels may cause overestimation of lumbar spine density. Current: BMD 1.219 g/cm2, Z-score 2.2, T-score 0.2, normal, 6.3% increase from previous, 8.3% increase from baseline (<5% change is not significant). Prior: BMD 1.147 g/cm2. Baseline: BMD 1.126 g/cm2. IDENTIFIED RISK FACTORS: Menopause, height loss. HISTORY OF FRACTURE: None listed. MEDICATIONS: Calcium, vitamin D, biphosphonate MM/XR DEXA axial skeleton IMPRESSION: 1. DIAGNOSIS: Osteopenia based on the lowest T-score value of -1.5 in the femoral neck applying World Health Organization criteria. 2. 10-YEAR FRACTURE RISK PREDICTION, FRAX: Not performed in this patient on estrogen or bone building treatments. 3. Treatment Recommendations: NOF guidelines recommend consideration for treatment in postmenopausal women and men age 50 and older presenting with the following: -A hip or vertebral (clinical or morphometric) fracture. -T-score less than or equal to -2.5 at the femoral neck or spine after appropriate evaluation to exclude secondary causes. -Low bone mass at the hip or spine and a 10-year fracture probability by FRAX of greater than or equal to 3% for hip fracture or greater than or equal to 20% for major osteoporotic fracture based on the [place] adapted WHO algorithm. 4. Other Recommendations: All treatment decisions require clinical judgment and consideration of individual patient factors, including patient preferences, comorbidities, previous drug use, risk factors not captured in the FRAX model (e.g. frailty, falls, vitamin D deficiency, increased bone turnover, interval significant decline in bone density) and possible under or overestimation of fracture risk by FRAX. Additional medical evaluation for secondary cause of low bone mineral density may be appropriate. FUTURE SCAN RECOMMENDATION: People with diagnosed cases of osteoporosis or at high risk for fracture should have regular bone mineral density tests. For patients eligible for Medicare, routine testing is allowed once every 2 years. The testing frequency can be increased to one year for patients who have rapidly progressing disease, those who are receiving or discontinuing medical therapy to restore bone mass, or have additional risk factors. Electronically signed by: Shad Vazquez MD 03/08/2024 03:28 PM EDT
--- NOTE | 2024-03-08 10:38 | HM_ITS ---
* Total monitoring time 3 days. * Underlying rhythm is sinus with an average rate of 56/Min. * Rare supraventricular ectopy. * Rare ventricular ectopy. * No significant pauses or high-grade AV blocks. * No patient markers or diary events. MTDD
== END ==
LOC: HO.CARD 10:34
PROVIDERS: PCP Internal Medicine Geriatric Medicine; Visit Provider Internal Medicine Geriatric Medicine
DX: I48.0 Paroxysmal atrial fibrillation (principal); M81.0 Age-related osteoporosis without current pathological fracture
CPT/HCPCS: 77080; 93242

== ENCOUNTER → 2024-03-08 10:38 | Outpatient (BNV) | payer MEDICARE, SELFPAY | PROVIDERS: PCP Internal Medicine Geriatric Medicine; Visit Provider Internal Medicine | DX: I47.10 Supraventricular tachycardia, unspecified (principal); I49.3 Ventricular premature depolarization | CPT/HCPCS: 93244 ==

== ENCOUNTER 2024-03-08 10:57 | Outpatient (REF) | payer MEDICARE, SELFPAY | END 2024-03-08 10:58 | disposition home or self-care (01) | LOC: HO.MAMMO 10:57 | PROVIDERS: PCP Internal Medicine Geriatric Medicine; Visit Provider Internal Medicine Geriatric Medicine | DX: Z13.89 Encounter for screening for other disorder (principal) ==

== ENCOUNTER 2024-03-15 17:08 | Outpatient (REF) | payer MEDICARE, SELFPAY | END 2024-03-15 17:09 | disposition home or self-care (01) | LOC: HO.HHCLNP 17:08 | PROVIDERS: Visit Provider Advanced Practice Midwife | DX: R30.0 Dysuria (principal) | CPT/HCPCS: 87086 ==

== ENCOUNTER 2024-04-04 13:02 | Outpatient (AMB) | payer MEDICARE, SELFPAY ==
[2024-04-04 13:15] VITALS: BP 138/62; PULSE 62; BMI 25.8
--- NOTE | 2024-04-04 13:15 | A.OFFVIS_ITS ---
Vital Signs 04/04/24 13:15 Height 5 ft 2 in Weight 141 lb 1.533 oz BMI 25.8 BP 138/62 Blood Pressure Location Lt brachial Position Sitting Pulse 62 Pulse Source Pulse Oximeter Intake Visit Reasons: f/up echo and 2 holter Allergies hydromorphone [From DILAUDID] Allergy (Intermediate, Verified 11/04/23 09:17) ITCHY ALL OVER Medication List - Last Reconciled 04/04/24 by Juan Keating MD amlodipine 5 mg PO DAILY apixaban (Eliquis) 5 mg PO BID hydroxyurea 1 cap PO TUTHSA@0900 ketorolac 0.5% 1 drp ophthalmic (eye) losartan 100 mg PO DAILY metoprolol succinate ER 50 mg PO DAILY multivitamin 1 tab PO DAILY omega 5-ofu-ijh-fish oil 300-1,000 mg (Fish Oil) 1 cap PO BID pravastatin 1 tab PO BEDTIME HPI Comments Details: Debbie comes for follow-up. She is very anxious about her heart. She says her son is worried about her. I did mentioned to her that her echocardiogram shows normal LV ejection fraction 60 65%. Denies any atrial fibrillation symptoms. Holter monitor did not show any evidence of atrial fibrillation. Denies any heart failure symptoms. No lightheadedness, syncope. No bleeding issues or neurologic events. No exertional chest pain. [facility] Medical History ACS (acute coronary syndrome) Chronic kidney disease, stage III (moderate) Dyslipidemia Glaucoma HTN (hypertension) Chronic dermatitis Thrombocytopenia Surgical History Hx of partial nephrectomy History of bilateral knee replacement Family History Mother Breast cancer Brother Alzheimers disease Son Stroke Rectal adenocarcinoma Social History Household Members: Spouse and None Housing: House Alcohol intake: former Patient Tobacco Use Status: Never used Tobacco service: No Current occupational status: retired Review of Systems Const Denies weakness ENT Denies dizziness Card Denies chest pain, Denies chest pain with activity, Denies syncope, Denies rapid heart rate, Denies pedal edema, Denies edema, Denies leg edema, Denies lightheadedness, Denies palpitations, Reports dyspnea, Denies dyspnea on exertion and Denies orthopnea Resp Denies cough, Reports dyspnea and Denies dyspnea on exertion GI Denies hematochezia and Denies change in stool character Musc Denies abnormal gait, Denies muscle cramps, Denies muscle weakness, Denies numbness, Denies radiating pain into limb and Denies tingling Neuro Denies abnormal gait, Denies dizziness, Denies syncope, Denies numbness, Denies tingling and Denies weakness Endo Denies palpitations Physical Exam Vital Signs: Last Vital Signs Pulse 62 04/04/24 13:15 BP 138/62 04/04/24 13:15 BMI result Body Mass Index 25.8 Const General: cooperative, comfortable, no acute distress, well developed, alert, awake and anxious Nutritional Appearance: average body habitus and well nourished Orientation/consciousness: patient oriented x3 Limitations: ambulation with cane Neck Neck: Yes trachea midline, Yes supple and Yes no JVD Resp Effort & Inspection: normal respiratory effort Auscultation: clear to auscultation bilaterally Cardio Jugular venous distension: no JVD Palpation: normal PMI Rate: regular rate Rhythm: regular rhythm Heart sounds: S1 normal heart sound present, S2 normal heart sound present, no click, no gallops and no murmurs GI Auscultation: normal bowel sounds Skin General skin exam: no rashes or lesions noted and ecchymosis Neuro General: patient oriented x3 and no focal motor deficits Extrem General: Yes no clubbing, cyanosis or edema Assessment & Plan Assessment & Plan (1) Cardiomyopathy: Comment: 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 This was discussed with her. Good prognosis was discussed. This most likely represent stress-induced cardiomyopathy. She does have grade 2 diastolic dysfunction although has no signs or symptoms of heart failure. Continue current neurohormonal modulation with losartan and metoprolol. Continue aggressive blood pressure control. Amlodipine was recently increased through your office. Continue monitor blood pressure at home. Advised target goal blood pressure less than 130/84. Stress mitigation strategies was discussed. No other interventions required. (2) PAF (paroxysmal atrial fibrillation): Code(s): I48.0 - Paroxysmal atrial fibrillation Category: Medical Plan: Paroxysmal atrial fibrillation with left atrial enlargement. She has no significant recurrence of clinical symptoms at this point time. Continue metoprolol therapy. Avoidance of stimulants was discussed. Stress mitigation strategies were discussed. No indication for antiarrhythmic drug therapy at this point time. Continue full oral anticoagulation, currently on Eliquis 5 mg b.i.d.. Quarterly renal function test should be pursued. Will follow up in the clinic in 6 months time on her request. Thank you for allowing me to partake in his care Medications: Changed From amlodipine 2.5 mg PO DAILY 90 tabs 1RF To amlodipine 5 mg PO DAILY Coding Level of Care Code Est Pt Level 4 (01492) Complex EM visit Add On G2211 Diagnoses Cardiomyopathy I42.9 PAF (paroxysmal atrial fibrillation) I48.0
== END 2024-04-04 13:37 | disposition home or self-care (01) ==
PROVIDERS: PCP Internal Medicine Geriatric Medicine; Visit Provider Internal Medicine Cardiovascular Disease
DX: I42.9 Cardiomyopathy, unspecified (principal); I48.0 Paroxysmal atrial fibrillation
CPT/HCPCS: 99214; G2211

== ENCOUNTER → 2024-04-04 13:02 | Outpatient (BNVA) | payer MEDICARE, SELFPAY | PROVIDERS: PCP Internal Medicine Geriatric Medicine; Visit Provider Internal Medicine Cardiovascular Disease | DX: I42.9 Cardiomyopathy, unspecified (principal); I48.0 Paroxysmal atrial fibrillation | CPT/HCPCS: 99212 ==

== ENCOUNTER 2024-04-11 08:58 | Outpatient (AMB) | payer MEDICARE, SELFPAY ==
--- NOTE | 2024-04-11 09:02 | A.OFFVIS_ITS ---
Intake Visit Reasons: recurrent UTI Intake Note: Patient is present for RECURRENT UTI Urology Medication:NONE Antibiotic Allergy:NONE Blood Thinner:ELIQUIS Concession Manager Required: No Allergies hydromorphone [From DILAUDID] Allergy (Intermediate, Verified 04/11/24 09:03) ITCHY ALL OVER Medication List - Last Reconciled 04/11/24 by Jahaira Carey MD amlodipine 5 mg PO DAILY apixaban (Eliquis) 5 mg PO BID hydroxyurea 1 cap PO TUTHSA@0900 ketorolac 0.5% 1 drp ophthalmic (eye) losartan 100 mg PO DAILY metoprolol succinate ER 50 mg PO DAILY multivitamin 1 tab PO DAILY omega 8-cii-xpt-fish oil 300-1,000 mg (Fish Oil) 1 cap PO BID pravastatin 1 tab PO BEDTIME HPI Comments Details: Debbie is an 88-year-old female who is here for evaluation due to recurrent UTI. The patient states she was hospitalized in September due to the severe urinary tract infection. During the hospitalization she was transferred to [facility] due to some heart complications. She has currently on blood thinners for atrial fib. She was recently seen by school library media program director who referred her to our office. In review his note a recent Holter noted LV ejection fraction about 60%. The patient states she has also monitored by her PCP for chronic kidney disease -3. Urinalysis no signs infection 1+ protein. The patient states she wears a pad for in case she waits too long she may leak a little prior to getting to the bathroom. She denies constipation or diarrhea. I have discussed further evaluation with ultrasound imaging and follow-up office cystoscopy, pelvic exam at that time. [facility] Medical History ACS (acute coronary syndrome) Chronic kidney disease, stage III (moderate) Dyslipidemia Glaucoma HTN (hypertension) Chronic dermatitis Thrombocytopenia Surgical History Hx of partial nephrectomy History of bilateral knee replacement Family History Mother Breast cancer Brother Alzheimers disease Son Stroke Rectal adenocarcinoma Social History Household Members: Spouse and None Housing: House Alcohol intake: former Patient Tobacco Use Status: Never used Tobacco service: No Current occupational status: retired Review of Systems Const All systems reviewed & are unremarkable except as noted in HPI and below Reports no additional complaints Eyes Reports no additional complaints ENT Reports no additional complaints Card Reports no additional complaints Resp Reports no additional complaints GI Reports no additional complaints Reports as per HPI Musc Reports no additional complaints Skin/Breast Reports system reviewed and no additional complaints, except as documented Neuro Reports no additional complaints Psych Reports no additional complaints Endo Reports no additional complaints Curry/Lymph Reports no additional complaints Aller/Immun Reports no additional complaints Physical Exam Const General: cooperative, healthy appearing and no acute distress Orientation/consciousness: patient oriented x3 HEENT Head: Yes normal to inspection, Yes normocephalic and Yes atraumatic Eyes Conjunctivae: conjunctivae normal Neck Neck: Yes normal visual inspection and Yes trachea midline Chest Chest palpation & inspection: normal inspection of the chest Resp Effort & Inspection: normal respiratory effort Cardio Rate: regular rate GI Inspection: Yes normal to inspection Neuro General: patient oriented x3 Extrem Other: Bilateral lower extremity pedal edema Psych Appearance: grossly normal Results AMB Urinalysis, Automated UA Leukoctes 70 Helder/uL Last Edit by ROMINA Avalos on 04/11/24 09:21 UA Nitrite Negative Last Edit by ROMINA Avalos on 04/11/24 09:21 UA Urobilinogen 0.2 mg/dL Last Edit by ROMINA Avalos on 04/11/24 09:2 1 UA Protein 30 mg/dL Last Edit by ROMINA Avalos on 04/11/24 09:21 UA pH 5.5 Last Edit by ROMINA Avalos on 04/11/24 09:21 UA Blood 0 Papi/uL Last Edit by ROMINA Avalos on 04/11/24 09:21 UA Specific [place] 1.015 Last Edit by ROMINA Avalos on 04/11/24 09: 21 UA Ketone Negative Last Edit by ROMINA Avalos on 04/11/24 09:21 UA Bilirubin 0 mg/dL Last Edit by ROMINA Avalos on 04/11/24 09:21 UA Glucose 0 mg/dL Last Edit by ROMINA Avalos on 04/11/24 09:21 Results Reviewed Results Reviewed: Laboratory Last Values Urine pH (Auto) 5.5 04/11/24 09:20 Specific [place] (Auto) 1.015 04/11/24 09:20 Urine Protein (Auto) 30 mg/dL 04/11/24 09:20 Glucose (UA)(Auto) 0 mg/dL 04/11/24 09:20 Urine Ketones (Auto) Negative 04/11/24 09:20 Urine Blood (Auto) 0 Papi/uL 04/11/24 09:20 Urine Nitrite (Auto) Negative 04/11/24 09:20 Urine Bilirubin (Auto) 0 mg/dL 04/11/24 09:20 Urine Urobilinogen (Auto) 0.2 mg/dL 04/11/24 09:20 Leukocyte Esterase (Auto) 70 Helder/uL 04/11/24 09:20 Collected: 12/01/23-UNK Status: COMP Req#: [id number] Received: 12/01/23 Source: [facility] Sp Desc: Clean Cat Subm Dr: Ida Saab OIL CHANGER Ordered: Urine Culture Procedure Result Verified Urine Culture Final 12/03/23 Organism 1 Escherichia coli Quant > 100,000 cfu/mL E coli M.I.C. RX --------- --- Ampicillin <=2 S Ceftriaxone <=0.25 S Gentamicin <=1 S Nitrofurantoin <=16 S Trimethoprim/Sulfamethoxazole >=320 R Assessment & Plan Assessment & Plan (1) Recurrent UTI: Code(s): N39.0 - Urinary tract infection, site not specified Category: Medical (2) Proteinuria: Code(s): R80.9 - Proteinuria, unspecified Category: Medical (3) Functional urinary incontinence: Code(s): R39.81 - Functional urinary incontinence Category: Medical Plan The patient states she has also monitored by her PCP for chronic kidney disease -3. Urinalysis no signs infection 1+ protein. I have discussed further evaluation with ultrasound imaging and follow-up office cystoscopy, pelvic exam at that time. Orders: Orders US retroperitoneal comp Today N39.0 - Urinary tract infection, site not specified AMB Urinalysis Automated Today Z13.9 - Encounter for screening, unspecified Coding Level of Care Code New Pt Level 4 (92342) Diagnoses Recurrent UTI N39.0 Proteinuria R80.9 Functional urinary incontinence R39.81
== END 2024-04-11 10:16 | disposition home or self-care (01) ==
PROVIDERS: PCP Nurse Practitioner Family; Visit Provider Urology
DX: N39.0 Urinary tract infection, site not specified (principal); R80.9 Proteinuria, unspecified; R39.81 Functional urinary incontinence; Z13.9 Encounter for screening, unspecified
CPT/HCPCS: 99204

== ENCOUNTER → 2024-04-11 08:58 | Outpatient (BNVA) | payer MEDICARE, SELFPAY | PROVIDERS: PCP Nurse Practitioner Family; Visit Provider Urology | DX: N39.0 Urinary tract infection, site not specified (principal); R80.9 Proteinuria, unspecified; R39.81 Functional urinary incontinence | CPT/HCPCS: 81003; 99202 ==

== ENCOUNTER 2024-05-12 09:57 | Outpatient (REF) | payer MEDICARE, SELFPAY | END 2024-05-12 09:58 | disposition home or self-care (01) | LOC: HO.HMGCX 09:57 | PROVIDERS: PCP Internal Medicine Geriatric Medicine; Visit Provider Urology | DX: N39.0 Urinary tract infection, site not specified (principal) | CPT/HCPCS: 76770 ==

== ENCOUNTER 2024-05-30 09:28 | Outpatient (AMB) | payer MEDICARE, SELFPAY ==
--- NOTE | 2024-05-29 17:20 | MHC.OFFVIS ---
Intake Visit Reasons: cysto/US Intake Note: Patient is present for Cystoscopy/Pelvic Exam Urology Med: None Antibiotic Allergy: None Blood Thinner: Eliquis URO G-HD Disposable Cystoscope LOT: [id number] EXP: 09/02/26 Supervisor Painting Required: No Accompanied by: Self / Same As Patient Allergies hydromorphone [From DILAUDID] Allergy (Intermediate, Verified 05/30/24 09:41) ITCHY ALL OVER Medication List - Last Reconciled 05/30/24 by Jahaira Carey MD amlodipine 5 mg PO DAILY apixaban (Eliquis) 5 mg PO BID cephalexin 250 mg PO DAILY hydroxyurea 1 cap PO TUTHSA@0900 ketorolac 0.5% 1 drp ophthalmic (eye) DAILY losartan 50 mg PO BID losartan 100 mg PO DAILY metoprolol succinate ER 25 mg PO DAILY multivitamin 1 tab PO DAILY omega 0-mri-egj-fish oil 300-1,000 mg (Fish Oil) 1 cap PO BID pravastatin 1 tab PO BEDTIME HPI Comments Details: 05/30/24--Here for cystoscopy--cystoscopy findings inflammatory changes consistent with cystitis bladder wall thickening. No suspicious bladder lesions. Pelvic exam atrophic in narrow introitus atrophic urethra with small caruncle. 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 history of right partial nephrectomy otherwise kidneys within normal limits. The patient states that since the UTIs she has had more urinary urgency. Cystoscopy today inflammatory changes consistent with cystitis. We will place her on a 21 day suppressive course of antibiotics Keflex 250 mg daily. Follow-up to discuss any improvement in her urinary symptoms of urgency. 04/11/24--Debbei is an 88-year-old female who is here for evaluation due to recurrent UTI. The patient states she was hospitalized in September due to the severe urinary tract infection. During the hospitalization she was transferred to [facility] due to some heart complications. She is currently on blood thinners for atrial fib. She was recently seen by court interpreter who referred her to our office. In review his note a recent Holter noted LV ejection fraction about 60%. The patient states she has also monitored by her PCP for chronic kidney disease -3. Urinalysis no signs infection 1+ protein. The patient states she wears a pad for in case she waits too long she may leak a little prior to getting to the bathroom. She denies constipation or diarrhea. I have discussed further evaluation with ultrasound imaging and follow-up office cystoscopy, pelvic exam at that time. [facility] Medical History ACS (acute coronary syndrome) Chronic kidney disease, stage III (moderate) Dyslipidemia Glaucoma HTN (hypertension) Chronic dermatitis Thrombocytopenia Surgical History Hx of partial nephrectomy History of bilateral knee replacement Family History Mother Breast cancer Brother Alzheimers disease Son Stroke Rectal adenocarcinoma Social History Household Members: Spouse and None Housing: House Alcohol intake: former Patient Tobacco Use Status: Never used Tobacco service: No Current occupational status: retired Review of Systems Const All systems reviewed & are unremarkable except as noted in HPI and below Reports no additional complaints Eyes Reports no additional complaints ENT Reports no additional complaints Card Reports no additional complaints Resp Reports no additional complaints GI Reports no additional complaints Reports as per HPI Musc Reports no additional complaints Skin/Breast Reports system reviewed and no additional complaints, except as documented Neuro Reports no additional complaints Psych Reports no additional complaints Endo Reports no additional complaints Curry/Lymph Reports no additional complaints Aller/Immun Reports no additional complaints Physical Exam Const General: cooperative, healthy appearing and no acute distress Orientation/consciousness: patient oriented x3 HEENT Head: Yes normal to inspection, Yes normocephalic and Yes atraumatic Eyes Conjunctivae: conjunctivae normal Neck Neck: Yes normal visual inspection and Yes trachea midline Chest Chest palpation & inspection: normal inspection of the chest Resp Effort & Inspection: normal respiratory effort Cardio Rate: regular rate External Female Exam: normal external appearance Speculum Exam - Vagina: vagina atrophic Neuro General: patient oriented x3 Extrem General: No edema Psych Appearance: grossly normal Office Procedures Cystoscopy Consent Discussed risk and benefit or proposed procedure with the patient. Information consent for procedure given to the patient. Discussed technical aspects, risks, benefits and alternatives in full. Addressed all of the patient's questions and concerns regarding the procedure. The patient demonstrated knowledge and understanding. They wish to proceed with this procedure. Preparation The patient was prepped in the usual manner. A hr director was present and in the room. Genitalia was prepped with betadine solution in a sterile manner. Lidocaine Jelly 2% was placed into the urethra and 16Fr flexible Olympus cystoscope was inserted into the meatus after adequate lubrication. Procedure Time out per protocol performed. Bladder Inspection Bladder Inspection: The bladder was inspected in its entirety with utilization retroflexion displaying: Tumor(s): no suspicious bladder lesions visualized Trabeculation: Mild to Moderate Mucosal Erthema: moderate Orifices: normal shape and position Urethra: normal Cystoscopy findings: inflammatory changes consistent with cystitis bladder wall thickening. No suspicious bladder lesions. [id number] DISPOSABLE SCOPE URO-G FLEXIBLE SCOPE Procedure code (CPT) selection complete Office Meds lidocaine HCl 2 % mucosal jelly in applicator Performing Provider: Jahaira Carey MD Performing Location: [facility] [place] [facility] Documented (not given) by: Jahaira Carey MD on 05/30/24 10:16 Dose Route Admin Location Dispensed Lot Number Expiration Date ND Adult Live In Caregiver 10 mL intra-urethral mL naproxen 500 mg tablet Performing Provider: Jahaira Carey MD Performing Location: [facility] [place] [facility] Documented (not given) by: Jahaira Carey MD on 05/30/24 10:16 Dose Route Admin Location Dispensed Lot Number Expiration Date NDC Adult Live In Caregiver 500 mg PO tab ciprofloxacin HCl 500 mg tablet Performing Provider: Jahaira Carey MD Performing Location: [facility] [place] [facility] Documented (not given) by: Jahaiar Carey MD on 05/30/24 10:16 Dose Route Admin Location Dispensed Lot Number Expiration Date NDC Adult Live In Caregiver 500 mg PO tab Results AMB Urinalysis, Automated UA Leukoctes 125 Helder/uL Last Edit by AUBREE Hewitt on 05/30/24 10:09 UA Nitrite Negative Last Edit by AUBREE Hewitt on 05/30/24 10:09 UA Urobilinogen 0.2 mg/dL Last Edit by AUBREE Hewitt on 05/30/24 10:09 UA Protein 15 mg/dL Last Edit by AUBREE Hewitt on 05/30/24 10:09 UA pH 5.5 Last Edit by Arlette Haddad A on 05/30/24 10:09 UA Blood 10 Papi/uL Last Edit by Arlette Haddad, A on 05/30/24 10:09 UA Specific [place] 1.015 Last Edit by Arlette Haddad A on 05/30/24 10:09 UA Ketone Negative Last Edit by Arlette Haddad A on 05/30/24 10:09 UA Bilirubin 0 mg/dL Last Edit by Arlette Haddad, A on 05/30/24 10:09 UA Glucose 0 mg/dL Last Edit by Arlette Haddad A on 05/30/24 10:09 Results Reviewed Results Reviewed: Collected: 12/01/23-UNK Status: COMP Req#: [id number] Received: 12/01/23-1606 [facility] Desc: Clean Cat Subm Dr: Ida Saab NETWORK PROGRAMMER Ordered: Urine Culture Procedure Result Verified Urine Culture Final 12/03/23 Organism 1 Escherichia coli Quant > 100,000 cfu/mL E coli M.I.C. 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 Cystoscopy today inflammatory changes consistent with cystitis. We will place her on a 21 day suppressive course of antibiotics Keflex 250 mg daily. Follow-up to discuss any improvement in her urinary symptoms of urgency. Orders: Orders AMB Urinalysis Automated Today Z13.9 - Encounter for screening, unspecified AMB Cystoscopy Today N39.0 - Urinary tract infection, site not specified Medications: New lidocaine HCl 2% 10 mL intra-urethral ONCE 10 mL 0RF N39.0 - Urinary tract infection, site not specified ciprofloxacin HCl 500 mg PO ONCE 1 tab 0RF N39.0 - Urinary tract infection, site not specified cephalexin 250 mg PO DAILY 21 caps 0RF naproxen 500 mg PO ONCE 1 tab 0RF N39.0 - Urinary tract infection, site not specified Patient Instructions: The patient had an opportunity to ask questions regarding treatment plan. The patient expressed understanding and agreement with the above treatment plan. The patient is aware they should contact our office by phone for worsening of their current condition or the appearance of new symptoms. Compliance is encouraged with any medications and followup testing that is ordered. It is a privilege to be allowed the opportunity to participate in the urologic care of your patient. If you have any questions or concerns regarding treatment for the above conditions please do not hesitate to contact me. The office telephone contact is [phone]. This note is constructed in part using voice recognition software. While every effort has been made to ensure accuracy datapower consultant errors may have been included. Yours sincerely, Jahaira Carey MD Coding Level of Care Code Est Pt Level 3 (42127) Diagnoses Recurrent UTI N39.0 Proteinuria R80.9 Functional urinary incontinence R39.81 Cystitis N30.90 Urethral caruncle N36.2 CPT Codes Cystoscopy - CPT: [id number] ([id number])
== END 2024-05-30 10:19 | disposition home or self-care (01) ==
PROVIDERS: PCP Internal Medicine Geriatric Medicine; Visit Provider Urology
DX: N39.0 Urinary tract infection, site not specified (principal); R80.9 Proteinuria, unspecified; R39.81 Functional urinary incontinence; N30.90 Cystitis, unspecified without hematuria; N36.2 Urethral caruncle; N95.2 Postmenopausal atrophic vaginitis
CPT/HCPCS: 52000; 99213; 99459

== ENCOUNTER → 2024-05-30 09:28 | Outpatient (BNVA) | payer MEDICARE, SELFPAY | PROVIDERS: PCP Internal Medicine Geriatric Medicine; Visit Provider Urology | DX: N39.0 Urinary tract infection, site not specified (principal); N30.90 Cystitis, unspecified without hematuria; N36.2 Urethral caruncle; R80.9 Proteinuria, unspecified; R39.81 Functional urinary incontinence | CPT/HCPCS: 52000; 81003; 99212; 99459 ==

== ENCOUNTER 2024-07-01 16:38 | Outpatient (REF) | payer MEDICARE, SELFPAY ==
--- OUTSIDE RECORDS SUMMARY | 2024-07-01 16:40 | XMS_ITS | Encounter Summary ---
Author Organization [employer] Address [address] [place] [address] Care Team Providers Care Environmental Law Professor Name Role Phone Name, Dimitrios VYAS Primary Care Provider [phone] Reason for Visit * Reason Comments UTI Encounter Details Date Type Department Care Team ([facility] st Contact Info) Description 07/01/2024 10:00 AM EST Office Visit [facility] [address] [place] [address] [phone] Cuate Sim MD [address] [place] [address] Dysuria Social History Tobacco Use Types Packs/Day Years Used Date Smoking Tobacco: Never Smokeless Tobacco: Never Tobacco Cessation:Counseling Given: Not Answered Alcohol Use Standard Drinks/Week Comments Never 0 (1 standard drink = 0.6 oz pur e alcohol) Alcohol Answer Date Recorded Frequency of Alcohol Consumption Not on file 11/02/2023 Average Number of Drinks Not on file 024 Frequency of Binge Drinking Not on file 10/23 Score 0 11/02/2023 Depression Answer Date Recorded Patient Health Questionnaire-9 Score 0 08/19/2023 Patient Health Questionnaire-9 Score 0 08/19/2023 Last PHQ-9: Questionnaire Data Not on file 0 08/19/2023 Housing Stability Answer Date Recorded What is your housing situation today? I have nghia vergara 08/19/[address] you li ve. Do you have problems with any of the following? None of the above 08/19/2023 Food Insecurity Answer Date Recorded Within the past 12 months, y ou worried that your food would run out before you got money to buy more: Never True 08/19/2023 Within the past 12 months,th e food you bought just didn't last and you didn't have enough money to get more: Never True Transportation Answer Date Recorded In the past 12 months, has l ack of transportation kept you from medical appts, meetings, work or from getting things needed for daily living? No 08/19/2023 Utilities Answer Date Recorded In the past 12 months, has t he electric, gas, oil or water company threatened to shut off services in your home? No 08/19/2023 Depression Answer Date Recorded Patient Health Questionnaire-2 Score 0 08/19/2023 Comments No Sex and Gender Information Value Date Recorded Sex Assigned at Female 03/24/2022 10:35 AM EDT Legal Sex Female 10:35 AM EDT Gender Identity Female 03/24/2022 10:35 AM EDT Sexual Orientation Straight 03/24/2022 10 :35 AM EDT documented as of this encounter Last Filed Vital Signs Vital Sign Reading Time Taken Comments Blood Pressure 145/60 07/01/2024 10:25 AM EST Pulse 60 07/01/2024 10:25 AM EST Temperature 36.6 ??C (97.9 ??F) 07/01/2024 10:[address] Respiratory Rate 18 07/01/2024 10:25 AM EST Oxygen Saturation 97% 07/01/2024 10:25 AM EST Inhaled Oxygen Concentration - - Weight 65.4 kg (144 lb 3.2 oz) 07/01/2024 10:25 AM EST Height 157.5 cm (5' 2 ) 07/01/2024 10:25 AM EST Body Mass Index 26.37 07/01/2024 10:25 AM EST documented in this encounter Progress Notes * Cuate Sim MD - 07/01/2024 10:00 AM EST Subjective Patient ID: Debbie Tavarez is a 89 y.o. female. HPI Last night Debbie had onset of burning on urination with vaginal discharge last night. No frequency or urgency. Denies fever, chills, n/v, abdominal or flank pain. Saw urologist Dr. Smith at [facility] 05/29/2024, was prescribed Keflex 250 mg for 21 days because Cystoscopy today inflammatory changes consistent with cystitis. (From office notes). She finished Keflex about 1 week ago. Lives alone. Never smoked. Patient Active Problem List Diagnosis Obesity (BMI 30-39.9) Inflammatory dermatosis Glaucoma Essential thrombocythemia (CMS/HCC) Primary hypertension Dyslipidemia Osteoporosis Disseminated superficial actinic porokeratosis Basal cell carcinoma (BCC) of skin of nose Stage 3a chronic kidney disease ([facility]/HCC) Atrial fibrillation ([facility]/HCC) Non-ischemic cardiomyopathy ([facility]/HCC) Systolic dysfunction Gastroesophageal reflux disease without esophagitis ACS (acute coronary syndrome) ([facility]/HCC) Non-ST elevation IA (NSTEMI) ([facility]/HCC) Fall Urinary tract infection Dysuria CHF (congestive heart failure) ([facility]/HCC) LBBB (left bundle branch block) PAF (paroxysmal atrial fibrillation) ([facility]/HCC) Essential thrombocytosis ([facility]/HCC) HTN (hypertension) Chronic kidney disease, stage III (moderate) ([facility]) The following portions of the chart were reviewed this encounter and updated as appropriate: Tobacco Allergies Meds Problems Med Hx Surg Hx Fam Hx Review of Systems Constitutional: Negative for fever. Respiratory: Negative for shortness of breath. Cardiovascular: Negative for chest pain. Gastrointestinal: Negative for abdominal pain. Genitourinary: Positive for dysuria. Negative for flank pain. Skin: Negative for rash. Neurological: Negative for headaches. Objective Physical Exam Constitutional: Appearance: Normal appearance. HENT: Right Ear: Tympanic membrane normal. Nose: Nose normal. Eyes: Conjunctiva/sclera: Conjunctivae normal. Pupils: Pupils are equal, round, and reactive to light. Cardiovascular: Rate and Rhythm: Normal rate and regular rhythm. Heart sounds: No murmur heard. Pulmonary: Effort: Pulmonary effort is normal. Breath sounds: Normal breath sounds. Abdominal: General: Abdomen is flat. Palpations: Abdomen is soft. Tenderness: There is no abdominal tenderness. There is no right CVA tenderness or left CVA tenderness. Musculoskeletal: General: Normal range of motion. Cervical back: No tenderness. Skin: Findings: No rash. Neurological: Mental Status: She is alert. Gait: Gait is intact. Psychiatric: Mood and Affect: Mood normal. Behavior: Behavior normal. Procedures Assessment/Plan Diagnoses and all orders for this visit: Dysuria Urine C&S pending. Debbie declined vaginal swabbing for BV panel. I spoke with [facility], and they said that based on latest recommendations, Macrobid would be safe to use (calculated Creat clearance=50.5) Prescribed Macrobid for presumptive acute cystitis. Discussed ED precautions. Will call pt if urine C&S grows bacterium resistant to Macrobid. Has previously scheduled PCP elijah't in 3 days. - POCT urinalysis dipstick manually resulted - Culture, Urine, Routine Other orders - nitrofurantoin, macrocrystal-monohydrate, (Macrobid) 100 MG capsule; Take 1 capsule (100 mg) by mouth 2 times daily for 5 days. documented in this encounter Plan of Treatment Upcoming Encounters Date Type Department Care Team (Late st Contact Info) Description 07/04/2024 11:00 AM EST Office Visit [facility] [address] [place] [address] [phone] Name, MD Dimitrios [address] [place] [phone] Scheduled Orders Name Type Priority Associated Diagnoses Orde r Schedule Culture, Urine, Routine Microbiology Routine Dysuria Ordered: 07/01/2024 documented as of this encounter Procedures Procedure Name Priority Date/Time Associated Diagnosis Comments POCT URINALYSIS DIPSTICK Routine 07/01/2024 10:46 AM EST Dysuria documented in this encounter Results * (ABNORMAL) POCT urinalysis dipstick manually resulted (07/01/2024 10:46 AM EST) Color, UA Yellow Clarity, UA Clear Glucose, UA Negative Bilirubin, UA Negative Ketones, UA Positive Comment:trace Spec Grav, UA 1.020 Blood, UA Positive(A) Negative, None Detected Comment:trace- intact pH, UA 5.0 Protein, UA Few 15 Comment:30 mg/dL Urobilinogen, UA 1.0 Leukocytes, UA Few 15(A) Negative, Rare, Trace Comment:small Nitrite, UA Negative Negative, None Detected Urine 07/01/2024 10:4 6 AM EST us Cuate Sim MD POINT OF CARE TEST ENTER/EDIT OR DERABLES Final Result documented in this encounter Visit Diagnoses Diagnosis Dysuria documented in this encounter Additional Health Concerns Assessment Noted Time PHQ-9 Depression Total Score: 0 08/19/19 24 11:21 AM EDT documented as of this encounter Care Teams Environmental Law Professor Relationship Specialty Start Date End Date Name, MD Dimitrios [address] [place] [address] PCP - General Internal Medicine 07/03/22 documented as of this encounter
--- OUTSIDE RECORDS SUMMARY | 2024-07-01 16:40 | XMS_ITS | Encounter Summary ---
Author Organization [employer] Address [address] [facility] [address] [place] [address] Care Team Providers Care Grill Attendant Name Role Phone Name, Dimitrios VYAS Primary Care Provider [phone] Reason for Visit * Reason Comments Med Refill Encounter Details Date Type Department Care Team ([facility] st Contact Info) Description 01/03/2024 Refill [facility] [address] [place], [place] [phone] Ida Saab NP [address], [place] [phone] Social History Tobacco Use Types Packs/Day Years Used Date Smoking Tobacco: Never Smokeless Tobacco: Never Alcohol Use Standard Drinks/Week Comments Never 0 [...] Patient Health Questionnaire-2 Score 0 08/19/2023 Comments Unknown Sex and Gender Information Value Date Recorded Sex Assigned at Female 03/24/2022 10:35 AM EDT Legal Sex Female 10:35 AM EDT Gender Identity Female 03/24/2022 10:35 AM EDT Sexual Orientation Straight 03/24/2022 10 :35 AM EDT documented as of this encounter Plan of Treatment Upcoming Encounters Date Type Department Care Team (Late st Contact Info) Description 07/04/2024 11:00 AM EST Office Visit [facility] [address] [place] [phone] Name, MD Dimitrios [address] [place] [address] documented as of this encounter Visit Diagnoses Not on filedocumented in this encounter Additional Health Concerns Assessment Noted Time PHQ-9 Depression Total Score: 0 08/19/19 24 11:21 AM EDT documented as of this encounter Care Teams Grill Attendant Relationship Specialty Start Date End Date NameDimitrios MD [address] [place] [phone] PCP - General Internal Medicine 07/03/22 documented as of this encounter
--- OUTSIDE RECORDS SUMMARY | 2024-07-01 16:40 | XMS_ITS | Encounter Summary ---
Author Organization [facility] [employer] [facility] Address [address] [place] [address] 7t [place] [address] Care Team Providers Care Pastry Cook Name Role Phone Name, Dimitrios VYAS Primary Care Provider [phone] Encounter Details Date Type Department Care Team (Late st Contact Info) Description 07/23/[address] [phone] Name, MD Dimitrios [address] [place] [address] [phone] Social History Tobacco Use Types Packs/Day Years Used Date Smoking Tobacco: Never Smokeless Tobacco: Never Depression Answer Date Recorded Patient Health Questionnaire-2 Score 0 07/03/2022 Comments Unknown Sex and Gender Information Value Date Recorded Sex Assigned at Female 03/24/2022 10:35 AM EDT Legal Sex Female 10:35 AM EDT Gender Identity Female 03/24/2022 10:35 AM EDT Sexual Orientation Straight 03/24/2022 10 :35 AM EDT COVID-19 Exposure Response Date Recorded In the last 10 days, have yo u been in contact with someone who was confirmed or suspected to have Coronavirus/COVID-19? No / Unsure 07/03/2022 10:35 AM EST documented as of this encounter Plan of Treatment Upcoming Encounters Date Type Department Care Team (Late st Contact Info) Description 07/04/2024 11:00 AM EST Office Visit [address] [address] Name, MD Dimitrios [address] [place] [address] [phone] documented as of this encounter Visit Diagnoses Not on filedocumented in this encounter Care Teams Pastry Cook Relationship Specialty Start Date End Date Name, MD Dimitrios [address] [place] [address] PCP - General Internal Medicine 07/03/22 documented as of this encounter
--- OUTSIDE RECORDS SUMMARY | 2024-07-01 16:40 | XMS_ITS | Encounter Summary ---
Author Organization [facility] [employer] [facility] Address [address] [place] [address] [address] [place] [address] Care Team Providers Care Recooperer Name Role Phone Name, Dimitrios VYAS Primary Care Provider [phone] Reason for Visit * Reason Comments Med Refill Encounter Details Date Type Department Care Team (Late Contact Info) Description 01/30/2023 Refill [facility] [address] [place] [address] [phone] NameDimitrios MD [address] [place] [phone] Social History Tobacco Use Types Packs/Day Years Used Date Smoking Tobacco: Never Smokeless Tobacco: Never Alcohol Use Standard Drinks/Week Comments Never 0 (1 standard drink = 0.6 oz pur e alcohol) Depression Answer Date Recorded Patient Health Questionnaire-2 [...] Encounters Date Type Department Care Team (Late Contact Info) Description 07/04/2024 11:00 AM EST Office Visit [facility] [address] [place] [address] [phone] Dimitrios Cook MD [address] [place] [phone] documented as of this encounter Visit Diagnoses Not on filedocumented in this encounter Care Teams Recooperer Relationship Specialty Start Date End Date Name, MD Dimitrios [address] [place] [address] PCP - General Internal Medicine 07/03/22 documented as of this encounter
--- OUTSIDE RECORDS SUMMARY | 2024-07-01 16:40 | XMS_ITS | Encounter Summary ---
Author Organization [employer] Address [address] [facility] 7t [place] [address] Care Team Providers Care Metal Hanger Name Role Phone Name, Dimitrios VYAS Primary Care Provider [phone] Reason for Visit * Reason Onset Date Comments FYI 10/20/2023 Encounter Details Date Type Department Care Team ([facility] st Contact Info) Description 10/20/2023 Telephone [facility] [address] [place], [place] [phone] Name, MD Dimitrios [address] [place] [address] FYI Social History Tobacco Use Types Packs/Day Years Used Date Smoking Tobacco: Never Smokeless Tobacco: Never Alcohol Use Standard Drinks/Week Comments Never 0 (1 standard drink = 0.6 oz pur e alcohol) Depression Answer Date Recorded Patient Health Questionnaire-9 [...] AM EDT documented as of this encounter Miscellaneous Notes * Telephone Encounter - Sandhya Bradford RN - 10/20/2023 2:20 PM EDT Noted. [facility] walk in note is in pt's chart and HDF is scheduled 11/02/23. * Telephone Encounter - Rdaha Taylor - 10/20/2023 12:58 PM EDT Tc from pt calling to report an increase in dosage on losartan (Cozaar) 50 MG tablet. Pt states went to [facility] walk in ([place]) for chest tightness/difficulty breathing and losartan was increased to 100 mg. Any questions/clarification, contact pt at [phone] documented in this encounter Plan of Treatment Upcoming Encounters Date Type Department Care Team (Late st Contact Info) Description 07/04/2024 11:00 AM EST Office Visit [facility] [address] [place] [address] Name, MD Dimitrios [address] [place] [address] documented as of this encounter Visit Diagnoses Not on filedocumented in this encounter Additional Health Concerns Assessment Noted Time PHQ-9 Depression Total Score: 0 08/19/19 11:21 AM EDT documented as of this encounter Care Teams Metal Hanger Relationship Specialty Start Date End Date Name, MD Dimitrios [address] [place] [address] PCP - General Internal Medicine 07/03/22 documented as of this encounter
--- OUTSIDE RECORDS SUMMARY | 2024-07-01 16:40 | XMS_ITS | Clinical Summary ---
Author Organization [employer] Address [address] [facility] 7t [place] [address] Care Team Providers Care Greeter Guest Services Name Role Phone Name, Dimitrios VYAS Primary Care Provider Allergies Active Allergy Reactions Criticality Noted Date Comments Hydromorphone 06/21/2019 Medications hydroxyurea (Hydrea) 500 MG capsule take (20MG/KG) by oral route 5 days a week Active ketorolac (Acular) 0.5 % ophthalmic solution 3 Active latanoprost (Xalatan) 0.005 % ophthalmic solution 3 Active multivitamin (Theragran) tablet take 1 tablet by oral route every day with food Active losartan (Cozaar) 50 MG tabletIndications :Primary hypertension Take 1 tablet (50 mg) by mouth 2 times daily. 180 tablet 3 4 11/02/19 25 Active acitretin (Soriatane) 10 MG capsuleIndication s:DSAP (disseminated superficial actinic porokeratosis) Take 1 capsule (10 mg) by mouth with lunch. 30 capsule 3 4 Active pravastatin (Pravachol) 40 MG tabletIndications :Hypertension, unspecified type TAKE 1 TABLET BY MOUTH DAILY 100 tablet 2 4 Active metoprolol succinate XL (Toprol XL) 25 MG 24 hr tablet Take 1 tablet (25 mg) by mouth Once per day. Do not crush or chew. 90 tablet 3 4 02/22/20 25 Active amLODIPine (Norvasc) 5 MG tablet Take 1 tablet (5 mg) by mouth Once per day. 90 tablet 3 4 02/22/20 25 Active Eliquis 5 MG tablet TAKE 1 TABLET BY MOUTH TWICE DAILY 180 tablet 3 4 Active estradiol (Estrace) 0.1 MG/GM vaginal cream INSERT 2 GRAMS VAGINALLY DAILY 42.5 g 4 Active nitrofurantoin, macrocrystal-mono hydrate, (Macrobid) 100 MG capsule Take 1 capsule (100 mg) by mouth 2 times daily for 5 days. 10 capsule 5 07/06/19 25 Active Active Problems Problem Noted Date Diagnosed Date PAF (paroxysmal atrial fibrillation) 12/17/2023 Essential thrombocytosis 12/17/2023 HTN (hypertension) 12/17/2023 Chronic kidney disease, stage III (moderate) LBBB (left bundle branch block) 11/28/2023 Assessment & Plan (11/28/2023 8:55 AM EDT): Referred to cardiology Dysuria 11/20/2023 Assessment & Plan (12/10/2023 11:24 AM EDT): Will treat for presumed UTI, due to recent illness, culture of clearance ordered for after therapy Follow up in 1 week, sooner prn CHF (congestive heart failure) 11/20/2023 Overview (11/20/2023): Echo 10/12 revealed 25-30% ef. 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 No side effects. Denies palpitations. Continue anticoaguation. 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 Glaucoma 07/03/2022 Essential thrombocythemia 07/03/2022 Assessment & Plan (12/10/2023 11:23 AM EDT): Stable, no s/s of bleeding, followed by rheum Primary hypertension 07/03/2022 Assessment & Plan (12/10/2023 11:23 AM EDT): Slightly above goal today, monitor Assessment & Plan (11/28/2023 8:47 AM EDT): At goal continue current medications- losartan and metoprolol Dyslipidemia 07/03/2022 Osteoporosis 07/03/2022 Resolved Problems Problem Noted Date Diagnosed Date Resolved Date Acute myocardial infarction 11/13/2023 12/18/2023 Assessment & Plan (11/28/2023 8:55 AM EDT): NSTEMI with coronary angiography showing no sig cad, thought to be stress induced cardiomyopathy secondary to UTI Encounters Date Type Department Care Team Description 07/01/2024 10:00 AM EST Office Visit [facility] [address] [place] [phone] Cuate Sim MD Dysuria 07/01/2024 9:45 AM EST Office Visit [facility] [address] [place] [id number] Ashwini Queen MD 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) 07/01/2024 Travel 05/12/2024 Orders Only [facility] External Provider, [facility] 04/07/2024 Refill [facility] [address] [place] [address] Name, MD Dimitrios from Last 3 Months Immunizations Name Administration Dates Next Due Influenza High-dose Quadriva lent Preservative Free 02/25/2022,03/11/2021,01/26/2020,03/11,03/05/2015,02/05/2015,03/15/2014 Influenza injectable quadriv alent preservative free 02/04/2023,02/22/2019 Influenza, High Dose Seasona l, Preservative Free 02/05/2024,03/12/2017 Influenza, seasonal, injecta ble, preservative free 03/04/2016,03/10/2012,04/02/2011,01/31,03/14/2008,03/10/2007,03/09/2006 Pfizer Covid-19 Vaccine 12+ 02/22/2024, Pfizer Covid-19 Vaccine 12+ Bivalent 02/25/2022 Pneumococcal Conjugate PCV 13 03/05/2015 Pneumococcal Polysaccharide PPSV23 01/14/2010 RSV Adjuvant 04/28/2023 Tdap 02/21/2020 Social History Tobacco Use Types Packs/Day Years [...] your housing situation today? I have nghia jai 08/19/[address] you li [...] Orientation Straight 03/24/2022 10 :35 AM EDT Last Filed Vital Signs Vital Sign Reading [...] Mass Index 26.37 07/01/2024 10:25 AM EST Plan of Treatment Upcoming Encounters Date Type Department Care Team (Late st Contact Info) Description 07/04/2024 11:00 AM EST Office Visit [facility] [address] [place] [address] Name, MD Dimitrios [address] [place] [address] Health Maintenance Due Date Last Done Comments Derm Melanoma Skin Check 1935 Zoster Vaccines (1 of 2) 1987 Depression Screening 08/18/2024 08/19/2023, 08/19/19 24 SDOH Screening 08/18/2024 08/19/2023 Alcohol/Substance Use Screening 11/01/2024 11/02/2023 Mammogram 02/14/2025 02/15/2024, 01/23, 02/09/2023, Additional history exists Tobacco Screening 07/01/2025 07/01/2024 Lipid Panel 08/24/2028 08/25/2023, 06/25, 03/04/2022, Additional history exists DTaP/Tdap/Td Vaccines (2 - Td or Tdap) 02/20/2030 02/21/2020 Pneumococcal Vaccine: 50+ Years Completed 03/05/2015, 01/14/2010 RSV Patients and Patients Aged 60 years or older Completed 04/28/2023 Influenza Vaccine Completed 02/05/2024, , 02/25/2022, Additional history exists COVID-19 Vaccine Completed 02/22/2024, , 02/25/2022, Additional history exists HIB Vaccines Aged Out No longer eligi ble based on patient's age to complete this topic HPV Vaccines Aged Out No longer eligi ble based on patient's age to complete this topic Hepatitis A Vaccines Aged Out No long er eligible based on patient's age to complete this topic Hepatitis B Vaccines Aged Out No long er eligible based on patient's age to complete this topic IPV Vaccines Aged Out No longer eligi ble based on patient's age to complete this topic Meningococcal Vaccine Aged Out No alexei paula eligible based on patient's age to complete this topic RSV under 20 months Aged Out No longe r eligible based on patient's age to complete this topic Rotavirus Vaccines Aged Out No longer eligible based on patient's age to complete this topic Procedures Procedure Name Priority Date/Time Associated Diagnosis Comments POCT URINALYSIS DIPSTICK Routine 07/01/2024 10:46 AM EST Dysuria US RETROPERITONEAL COMPLETE Routine 05/12/2024 10:06 AM EST BI MAMMOGRAM SCREENING TOMOSYNTHESIS BILATERAL Routine 02/15/2024 11:05 AM EDT LIPID PANEL, STANDARD Routine 08/25/2023 9:48 AM EDT Essential hypertension from Last 3 Months or Most Recently Relevant to Health Maintenance Results * (ABNORMAL) POCT urinalysis dipstick manually [...] CARE TEST ENTER/EDIT OR DERABLES Final Result * US Retroperitoneal Complete (05/12/2024 10:06 AM EST) Anatomical Region Laterality Modality Ultrasound 05/12/2024 10:0 6 AM EST Narrative 06/13/2024 7:12 PM EST ? [facility] [address] ? [place] [address] ? Ultrasound Report ? Signed ? Patient: Tavarez,Debbie M ?MR#: [id number] ?? 5 ? : 1935 ?Acct:[id number] ? Age/Sex: 89 / F ?ADM Date: 12/19/24 ? Loc: HO.HMGCX ? Attending : Jahaira Carey MD ? Ordering Physician: Laurent-Luis,Corlis MD ?? Date of Service: 05/12/24 ?? Procedure(s): US retroperitoneal comp ?? Accession Number(s): [id number] ? cc: Jahaira Carey MD; Name,Dimitrios VYAS ? EXAMINATION: ?? US RETROPERITONEAL COMPLETE (RENAL) ? CLINICAL INFORMATION: ?? Urinary tract infection, site not specified. ? COMPARISON: ?? None available. ? TECHNIQUE: ?? Real-time imaging of the kidneys and bladder. Limited visualization due ?? to bowel gas. ? FINDINGS: ? RIGHT KIDNEY: 7.8 x 3.4 x 4.1 cm (SAG x AP x TRV). 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 No hydronephrosis. No renal calculi. Renal cortical ?? thickness is normal. Limited visualization. ? LEFT KIDNEY: 8.8 x 4.2 x 4.4 cm (SAG x AP x TRV). No hydronephrosis. No ?? renal calculi. Renal cortical thickness is normal. Limited ?? visualization. ? BLADDER: Well distended. Bilateral ureteral jets are demonstrated. ?? Prevoid bladder volume is 168 mL. Postvoid bladder volume is 0 mL. ? ADDITIONAL FINDINGS: Incidental note on limited views of the spleen of ?? splenomegaly, 16.6 cm. ? US/US retroperitoneal comp ?? IMPRESSION: ?? 1. History of partial right nephrectomy. No hydronephrosis. No renal ?? calculi. ? 2. Incidental note on limited views of the spleen of splenomegaly, 16.6 ?? cm. ? Electronically signed by: ??Brittani Pearson MD ??06/13/2024 07:09 PM EST ? Dictated By: ?Brittani Pearson MD ? Signed By: ?<Electronically signed by Brittani Pearson MD in OV> ? 06/13/24 1909 ? DD/ 1006 ? TD/TT: 05/12/24 1112 ? Inside Sales Supervisor: ? Procedure Note Donreynater, Image - 06/13/2024 [facility] [address] [place] [address] Ultrasound Report Signed Patient: Debbie Tavarez [facility]#: [id number] 5 : 7Acct:[id number] Age/Sex: 89 / FADM Date: 05/12/24 Loc: HO.HMGCX Attending Dr: Jahaira Carey MD Ordering Physician: Jahaira Carey MD Date of Service: 05/12/24 Procedure(s): US retroperitoneal comp Accession Number(s): [id number] cc: Jahaira Carey MD; Name,Dimitrios VYAS EXAMINATION: US RETROPERITONEAL COMPLETE (RENAL) CLINICAL INFORMATION: Urinary tract infection, site not specified. COMPARISON: None available. TECHNIQUE: Real-time imaging of the kidneys and bladder. Limited visualization due to bowel gas. FINDINGS: RIGHT KIDNEY: 7.8 x 3.4 x 4.1 cm (SAG x AP x TRV). History of partial right nephrectomy. No hydronephrosis. No renal calculi. Renal cortical thickness is normal. Limited visualization. LEFT KIDNEY: 8.8 x 4.2 x 4.4 cm (SAG x AP x TRV). No hydronephrosis. No renal calculi. Renal cortical thickness is normal. Limited visualization. BLADDER: Well distended. Bilateral ureteral jets are demonstrated. Prevoid bladder volume is 168 mL. Postvoid bladder volume is 0 mL. ADDITIONAL FINDINGS: Incidental note on limited views of the spleen of splenomegaly, 16.6 cm. US/US retroperitoneal comp IMPRESSION: 1. History of partial right nephrectomy. No hydronephrosis. No renal calculi. 2. Incidental note on limited views of the spleen of splenomegaly, 16.6 cm. Electronically signed by: Brittani Pearson MD 06/13/2024 07:09 PM [facility] Dictated By: Brittani Pearson MD Signed By: <Electronically signed by Brittani Pearson MD in OV> 06/13/24 1909 DD/ 1006 TD/TT: 05/12/24 1112 Inside Sales Supervisor: [facility] External Provider IMG US PROCEDURES Final Result * BI Mammogram Screening Tomosynthesis Bilateral (02/15/2024 11:05 AM EDT) Anatomical Region Laterality Modality Breast Bilateral Mammography 02/15/2024 11:0 5 AM EDT Narrative 02/26/2024 9:25 AM EDT ? [facility] ? [address] ?[place] [address] ? Mammography Report ? Signed ? Patient: Tavarez,Debbie M ?MR#: [id number] ?? 5 ? : 1935 ?Acct:[id number] ? Age/Sex: 88 / F ?ADM Date: 02/15/24 ? Loc: HO.MAMMO ? Attending Dr: Dimitrios Cook MD ? Ordering Physician: Dimitrios Cook MD ?Results: 1Negative ? Date of Service: 02/15/24 ?Follow Up: 1 Year From Orig ?? inal Mammogram ? Procedure(s): MM tomosynthesis screening BI ?? Accession Number(s): [id number] ? cc: Joyce,Dimitrios VYAS ? EXAMINATION: ?? MM SCREENING DIGITAL BREAST TOMOSYNTHESIS, BILATERAL ? CLINICAL INFORMATION: ? Screening. Asymptomatic. ? COMPARISON: ?? Mammography: Comparison is made with available priors ? TECHNIQUE: ?? Digital breast mammography with tomosynthesis is performed in both the ?? craniocaudal and mediolateral oblique views along with computer-aided ?? detection (CAD). ? FINDINGS: ?? There are scattered areas of fibroglandular density (ACR BI-RADS breast ?? composition Category b). ? There are no significant masses, abnormal calcifications, or other ?? abnormalities. ? MM/MM tomosynthesis screening BI ?? IMPRESSION: ?? No mammographic evidence of malignancy. ? ASSESSMENT: ? BI-RADS BI-RADS 1 - Negative ? RECOMMENDATION: ?? Routine annual mammography screening. ? 1 year F/U ? This examination should not preclude the clinical evaluation of a ?? suspicious palpable abnormality. ? This patient's information was entered into a reminder system with a ?? target due date for their next mammogram. ? Electronically signed by: ??Lindsay Cruz DO ??02/26/2024 09:21 AM EDT ?? RP ? Dictated By: ?Lindsay Cruz DO ? Signed By: ?<Electronically signed by Lindsay Cruz, DO in OV> ? 02/26/24 0921 ? DD/ 1105 ? TD/TT: 02/15/24 1135 ? Inside Sales Supervisor: ? Procedure Note Donreynater, Image - 02/26/2024 [facility] [address] [place] [address] Mammography Report Signed Patient: Debbie Tavarez MMR#: [id number] 5 : 1935cct:[id number] Age/Sex: 88 / FADM Date: 02/15/24 Loc: HO.MAMMO Attending Dr: Dimitrios Cook MD Ordering Physician: Dimitrios Cookesults: 1Negative Date of Service: 02/15/24Follow Up: 1 Year From Orig inal Mammogram Procedure(s): MM tomosynthesis screening BI Accession Number(s): [id number] cc: Dimitrios Cook MD EXAMINATION: MM SCREENING DIGITAL BREAST TOMOSYNTHESIS, BILATERAL CLINICAL INFORMATION: Screening. Asymptomatic. COMPARISON: Mammography: Comparison is made with available priors TECHNIQUE: Digital breast mammography with tomosynthesis is performed in both the craniocaudal and mediolateral oblique views along with computer-aided detection (CAD). FINDINGS: There are scattered areas of fibroglandular density (ACR BI-RADS breast composition Category b). There are no significant masses, abnormal calcifications, or other abnormalities. MM/MM tomosynthesis screening BI IMPRESSION: No mammographic evidence of malignancy. ASSESSMENT: BI-RADS BI-RADS 1 - Negative RECOMMENDATION: Routine annual mammography screening. 1 year F/U This examination should not preclude the clinical evaluation of a suspicious palpable abnormality. This patient's information was entered into a reminder system with a target due date for their next mammogram. Electronically signed by: Lindsay Cruz DO 02/26/2024 09:21 AM EDT RP Dictated By: Lindsay Cruz DO Signed By: <Electronically signed by Lindsay Cruz DO in OV> 02/26/24 0921 DD/ 1105 TD/TT: 02/15/24 1135 Inside Sales Supervisor: us Plunkett Name IMG BI PROCEDURES Edited Result - Final * (ABNORMAL) Lipid Panel, Standard (08/25/2023 9:48 AM EDT) Triglycerides 128 <150 mg/dL [facility] Comment:Desirable Triglyceri de: less than 150 mg/dLBorderline High Triglyceride 150-199 mg/dLHigh Triglyceride: 200-499 mg/dLVery High Triglyceride: greater than or equal to 5OO mg/dL Cholesterol 122 <200 mg/dL [facility] Comment:Desirable Cholestero l: less than 200 mg/dLBorderline High Cholesterol: 200-239 mg/dLHigh Cholesterol: greater than 239 mg/dL LDL Cholesterol Calculated 65 <100 mg/dL [facility] Comment:Desirable LDL: less than 100 mg/dLNear Optimal/Above Optimal LDL: 110- 129 mg/dLBorderline High LDL: 130-159 mg/dLHigh LDL: 160-189 mg/dLVery High LDL: greater than or equal to 190 mg/dL HDL Cholesterol 32(L) >40 mg/dL [facility] Comment:Desirable HDL: great er than 40 mg/dL Note: This HDL assay may give artificially low results in patients with liver disease. Blood Venous blood specimen / Unknown 08/25/2023 9:48 AM EDT 08/25/2023 12:50 PM EDT us Dimitrios Cook MD LAB BLOOD ORDERABLES Final Resul t [facility] [address] [place] [phone] from Last 3 Months or Most Recently Relevant to Health Maintenance Insurance [facility] MEDICARE ADVANTAGE HMO Care Teams Greeter Guest Services Relationship Specialty Start Date End Date Name, MD Dimitrios [address] [place] [address] PCP - General Internal Medicine 07/03/22
--- OUTSIDE RECORDS SUMMARY | 2024-07-01 16:40 | XMS_ITS | Encounter Summary ---
Author Organization [employer] Address [address] [facility] 7[address] [place] [address] Care Team Providers Care Credit Control Administrator Name Role Phone Name, Dimitrios VYAS Primary Care Provider [phone] Reason for Visit * Reason Onset Date Comments Nurse Triage 03/15/2024 Encounter Details Date Type Department Care Team ([facility] st Contact Info) Description 03/15/2024 Telephone [facility] [address] [place], [place] [phone] Name, MD Dimitrios [address] [place] [address] Nurse Triage Social History Tobacco Use Types Packs/Day Years [...] encounter Miscellaneous Notes * Telephone Encounter - Marilynn Emerson RN - 03/15/2024 10:13 AM EDT Triage call Pt reports UTI . Pt reports the use of OTC test showing UTI. Pt reports symptoms of back pain and frequency. Neg for burning with urination, neg for fever. Pt will be going away to [place] to be with son for a week. Leaving this Thursday. Pt is advised to come to [facility] today to be seen by provider and Pt agrees with disposition and is drinking adequate liquids. Unable to verify insurance due to computer error. Protocol Used: Urinary Symptoms (Adult) Protocol-Based Disposition: See in Office or Video Visit Today Video visit not offered Positive Triage Questions: * Side (flank) or lower back pain present * Urinating more frequently than usual (i.e., frequency) OR new-onset of the feeling of an urgent need to urinate (i.e., urgency) * All higher-acuity triage questions were negative Care Advice Discussed: * Reasons To Call Back - Fever occurs - Pain or burning with urination - Unable to urinate and bladder feels full - You become worse * Telephone Encounter - Gloria Carrera - 03/15/2024 9:09 AM EDT Symptom: Urination Pain Outcome: Schedule a same-day appointment or talk to a nurse or provider today Reason: Caller denied all higher acuity questions The caller accepted this outcome. documented in this encounter Plan of Treatment Upcoming Encounters Date Type Department Care Team (Late st Contact Info) Description 07/04/2024 11:00 AM EST Office Visit [facility] [address] [place] [address] Name, MD Dimitrios [address] [place] [address] documented as of this encounter Visit Diagnoses Not on filedocumented in this encounter Additional Health Concerns Assessment Noted Time PHQ-9 Depression Total Score: 0 08/19/19 24 11:21 AM EDT documented as of this encounter Care Teams Credit Control Administrator Relationship Specialty Start Date End Date Name, MD Dimitrios [address] [place] [phone] PCP - General Internal Medicine 07/03/22 documented as of this encounter
--- OUTSIDE RECORDS SUMMARY | 2024-07-01 16:40 | XMS_ITS | Encounter Summary ---
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) Social History Tobacco Use Types Packs/Day Years [...] Sign Reading Time Taken Comments Blood Pressure 148/66 07/01/2024 9:37 AM EST Pulse 63 07/01/2024 9:37 AM EST Temperature 37.1 ??C (98.7 ??F) 07/01/2024 9:37 AM ES T Respiratory Rate 18 07/01/2024 9:37 AM EST Oxygen Saturation - - Inhaled Oxygen Concentration - - Weight 65.4 kg (144 lb 2 oz) 07/01/2024 9:37 AM EST Height 157.5 cm (5' 2 ) 07/01/2024 9:37 AM EST Body Mass Index 26.36 07/01/2024 9:37 AM EST documented in this encounter Progress Notes * Ashwini Queen MD - 07/01/2024 9:45 AM EST Subjective Patient ID: Debbie Tavarez is a 89 y.o. female who presents for No chief complaint on file.. HPI 89 yr old woman with hx of rough , slightly scaly skin on upper and lower extremities. She was diagnosed with DSAP and was prescribed Acitretin however didn't paula it due to cost. Review of Systems Constitutional: Negative for diaphoresis, fatigue and fever. HENT: Negative for ear discharge, ear pain, facial swelling and hearing loss. Respiratory: Negative for cough, choking, chest tightness and shortness of breath. Cardiovascular: Negative for chest pain and leg swelling. Gastrointestinal: Negative for abdominal distention, abdominal pain and anal bleeding. Endocrine: Negative for cold intolerance and heat intolerance. Genitourinary: Negative for enuresis, flank pain and frequency. Musculoskeletal: Negative for arthralgias, back pain and gait problem. Skin: Positive for rash. Neurological: Negative for dizziness, facial asymmetry and headaches. Psychiatric/Behavioral: Negative for agitation, behavioral problems and confusion. Objective Physical Exam Constitutional: Appearance: Normal appearance. HENT: Head: Normocephalic and atraumatic. Nose: Nose normal. Eyes: Pupils: Pupils are equal, round, and reactive to light. Pulmonary: Effort: Pulmonary effort is normal. Musculoskeletal: General: Normal range of motion. Cervical back: Normal range of motion. Skin: Comments: Upper and lower extremities dry and erythematous patches . Neurological: General: No focal deficit present. Mental Status: She is alert. 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 Advised to use Cerave SA documented in this encounter Plan of Treatment Upcoming Encounters Date Type Department Care Team (Late st Contact Info) Description 07/04/2024 11:00 AM EST Office Visit [facility] [address] [place] [phone] Name, MD Dimitrios [address] [place] [phone] documented as of this encounter Visit Diagnoses Diagnosis DSAP (disseminated superficial actinic porokeratosis)- Primary Disseminated superficial actinic porokeratosis (DSAP) documented in this encounter Additional Health Concerns Assessment Noted Time PHQ-9 Depression Total Score: 0 08/19/19 24 11:21 AM EDT documented as of this encounter Care Teams Cut Off Sawyer Relationship Specialty Start Date End Date Name, MD Dimitrios [address] [place] [id number] PCP - General Internal Medicine 07/03/22 documented as of this encounter
--- OUTSIDE RECORDS SUMMARY | 2024-07-01 16:40 | XMS_ITS | Encounter Summary ---
Author Organization [employer] Address [address] [facility] 7t [place] [address] Care Team Providers Care Vibration Technician Name Role Phone Name, Dimitrios VYAS Primary Care Provider [phone] Encounter Details Date Type Department Care Team (Late st Contact Info) Description 05/12/2024 Orders Only [facility] External Provider, [facility] Social History Tobacco Use Types Packs/Day Years [...] Description 07/04/2024 11:00 AM EST Office Visit [facility] MED[facility] [address] [place] [address] Name, MD Dimitrios [address] [place] [address] documented as of this encounter Procedures Procedure Name Priority Date/Time Associated Diagnosis Comments US RETROPERITONEAL COMPLETE Routine 05/12/2024 10:06 AM EST documented in this encounter Results * US Retroperitoneal Complete (05/12/2024 10:06 AM EST) Anatomical Region Laterality Modality Ultrasound 05/12/2024 10:0 6 AM EST Narrative 06/13/2024 7:12 PM EST ? [facility] ?[facility] [address]la Yip ? [place] [address] ? Ultrasound Report ? Signed ? Patient: Tavarez,Debbie M ?MR#: [id number] ?? 5 ? : 1935 ?Acct:[id number] ? Age/Sex: 89 / F ?ADM Date: 12/19/24 ? Loc: HO.HMGCX ? Attending Dr: Jahaira Carey MD ? Ordering Physician: Jahaira Carey MD ?? Date of Service: 05/12/24 ?? Procedure(s): US retroperitoneal comp ?? Accession Number(s): [id number] ? cc: Jahaira Carey MD; Name,Dimitrios VYAS [...] ??Brittani Pearson MD ??06/13/2024 07:09 PM EST ?? RP ? Dictated By: ?Brittani Pearson MD ? Signed By: ?<Electronically signed by Brittani Pearson MD in OV> ? 06/13/24 1909 ? DD/ 1006 ? TD/TT: 05/12/24 1112 ? Phone Operator: ? Procedure Note Maryann, Image - 06/13/2024 [facility] Adult Primary [facility] [place] [address] Ultrasound Report Signed Patient: Debbie Tavarez [facility]#: [id number] 5 : 7Acct:[id number] Age/Sex: 89 / FADM Date: 05/12/24 Loc: .HMGCX Attending Dr: Jahaira Carey MD Ordering Physician: Jahaira Carey MD Date of Service: 05/12/24 Procedure(s): US retroperitoneal comp Accession Number(s): [id number] cc: Jahaira Carey MD; Name,Dimitrios VYAS EXAMINATION: [...] by: Brittani Pearson MD 06/13/2024 07:09 PM [facility] Dictated By: Brittani Pearson MD Signed By: <Electronically signed by Brittani Pearson MD in OV> 06/13/24 1909 DD/ 1006 TD/TT: 05/12/24 1112 Phone Operator: [facility] External Provider IMG US PROCEDURES Final Result documented in this encounter Visit Diagnoses Not on filedocumented in this encounter Additional Health Concerns Assessment Noted Time PHQ-9 Depression Total Score: 0 08/19/19 24 11:21 AM EDT documented as of this encounter Care Teams Vibration Technician Relationship Specialty Start Date End Date Name, MD Dimitrios [address] [place] [address] PCP - General Internal Medicine 07/03/22 documented as of this encounter
--- OUTSIDE RECORDS SUMMARY | 2024-07-01 16:40 | XMS_ITS | Encounter Summary ---
Author Organization [employer] Address [address] [facility] 7t [place] [address] Care Team Providers Care Pellet Preparation Operator Name Role Phone Name, Dimitrios VYAS Primary Care Provider Encounter Details Date Type Department Care Team (Latest Contact Info) Description 07/01/2024 Travel Social History Tobacco Use Types Packs/Day Years [...] 07/04/2024 11:00 AM EST Office Visit [facility] MEDICINE [address] [place] [address] NameDimitrios MD 230 [place] [address] documented as of this encounter Visit Diagnoses Not on filedocumented in this encounter Additional Health Concerns Assessment Noted Time PHQ-9 Depression Total Score: 0 08/19/19 24 11:21 AM EDT documented as of this encounter Care Teams Pellet Preparation Operator Relationship Specialty Start Date End Date Name, MD Dimitrios [address] [place] [address] PCP - General Internal Medicine 07/03/22 documented as of this encounter
== END 2024-07-01 16:39 | disposition home or self-care (01) ==
LOC: HO.HHCLNP 16:38
PROVIDERS: Visit Provider Emergency Medicine
DX: R30.0 Dysuria (principal)
CPT/HCPCS: 87086

== ENCOUNTER 2024-09-14 11:01 | Outpatient (REF) | payer MEDICARE, SELFPAY ==
--- OUTSIDE RECORDS SUMMARY | 2024-09-14 13:19 | XMS_ITS | Encounter Summary ---
Author Organization [facility] [employer] Address [address] [place] [address] 7t [place] [address] Care Team Providers Care Padded Products Finisher Name Role Phone Name, Dimitrios VYAS Primary Care Provider [phone] Encounter Details Date Type Department Care Team (Late st Contact Info) Description 07/23/[address] [phone] Name, MD Dimitrios [address] [place] [address] [phone] Social History Tobacco Use Types Packs/Day Years [...] Care Team (Late st Contact Info) Description 09/22/2024 10:30 AM EDT Office Visit [address] [address] Name, MD Dimitrios [address] [place] [address] [phone] documented as of this encounter Visit Diagnoses Not on filedocumented in this encounter Care Teams Padded Products Finisher Relationship Specialty Start Date End Date Name, MD Dimitrios [address] [place] [address] PCP - General Internal Medicine 07/03/22 documented as of this encounter
--- OUTSIDE RECORDS SUMMARY | 2024-09-14 13:19 | XMS_ITS | Encounter Summary ---
Author Organization [employer] Address [address] [facility] 7t [place] [address] Care Team Providers Care Director Immunology Name Role Phone Name, Dimitrios VYAS Primary Care Provider [phone] Reason for Visit * Reason Onset Date Comments Nurse Triage 03/15/2024 Encounter Details Date Type Department Care Team ([facility] st Contact Info) Description 03/15/2024 Telephone [facility] MED[facility]INE [address] [place], [place] [phone] Name, MD Dimitrios [address] [place] [address] Nurse Triage Social History Tobacco Use Types [...] fever. Pt will be going away to [place] to be with son for a week. Leaving this Thursday. Pt is advised to come to [facility] today to be seen by provider and [...] Description 09/22/2024 10:30 AM EDT Office Visit [facility] MED[facility]INE [address] [place] [address] Name, MD Dimitrios [address] [place] [address] documented as of this encounter Visit Diagnoses Not on filedocumented in this encounter Additional Health Concerns Assessment Noted Time PHQ-9 Depression Total Score: 0 08/19/19 24 11:21 AM EDT documented as of this encounter Care Teams Director Immunology Relationship Specialty Start Date End Date Name, MD Dimitrios [address] [place] [address] PCP - General Internal Medicine 07/03/22 documented as of this encounter
--- OUTSIDE RECORDS SUMMARY | 2024-09-14 13:19 | XMS_ITS | Encounter Summary ---
Author Organization [employer] Address [address] [facility] 7t [place] [address] Care Team Providers Care Food And Beverage Order Clerk Name Role Phone Name, Dimitrios VYAS Primary Care Provider [phone] Reason for Visit * Reason Onset Date Comments FYI 10/20/2023 Encounter Details Date Type Department Care Team ([facility] st Contact Info) Description 10/20/2023 Telephone [facility] MED[facility]INE [address] [place], [place] [phone] Name, MD Dimitrios [address] [place] [address] FYI Social History Tobacco Use Types Packs/Day [...] RN - 10/20/2023 2:20 PM EDT Noted. [facility] walk in note is in pt's chart and HDF is scheduled 11/02/23. * Telephone Encounter - Radha Taylor - 10/20/2023 12:58 PM EDT Tc from pt calling to report an increase in dosage on losartan (Cozaar) 50 MG tablet. Pt states went to [facility] walk in ([place]) for chest tightness/difficulty breathing and losartan was increased to 100 mg. Any questions/clarification, contact pt at [phone] documented in this encounter Plan of Treatment Upcoming Encounters Date Type Department Care Team (Late st Contact Info) Description 09/22/2024 10:30 AM EDT Office Visit [facility] MED[facility]INE [address] [place], [place] [phone] Name, MD Dimitrios [address] [place] [address] documented as of this encounter Visit Diagnoses Not on filedocumented in this encounter Additional Health Concerns Assessment Noted Time PHQ-9 Depression Total Score: 0 08/19/19 11:21 AM EDT documented as of this encounter Care Teams Food And Beverage Order Clerk Relationship Specialty Start Date End Date Name, MD Dimitrios [address] [place] [address] PCP - General Internal Medicine 07/03/22 documented as of this encounter
--- OUTSIDE RECORDS SUMMARY | 2024-09-14 13:19 | XMS_ITS | Clinical Summary ---
Author Organization [employer] Address [address] [facility] 7t [place] [address] Care Team Providers Care Ornamenter Hand Name Role Phone Name, Dimitrios VYAS Primary Care Provider [phone] Allergies Active Allergy Reactions Criticality Noted Date Comments Hydromorphone 06/21/2019 Medications hydroxyurea (Hydrea) 500 MG capsule take (20MG/KG) by oral route 5 days a week Active ketorolac (Acular) 0.5 % ophthalmic solution 07/02/19 23 Active latanoprost (Xalatan) 0.005 % ophthalmic solution 06/16/19 23 Active multivitamin (Theragran) tablet take 1 tablet by oral route every day with food Active losartan (Cozaar) 50 MG tabletIndication s:Primary hypertension Take 1 tablet (50 mg) by mouth 2 times daily. 180 tablet 3 11/02/19 24 025 Active acitretin (Soriatane) 10 MG capsuleIndicatio ns:DSAP (disseminated superficial actinic porokeratosis) Take 1 capsule (10 mg) by mouth with lunch. 30 capsule 3 02/05/20 24 Active pravastatin (Pravachol) 40 MG tabletIndication s:Hypertension, unspecified type TAKE 1 TABLET BY MOUTH DAILY 100 tablet 2 02/11/20 24 Active metoprolol succinate XL (Toprol XL) 25 MG 24 hr tablet Take 1 tablet (25 mg) by mouth Once per day. Do not crush or chew. 90 tablet 3 02/22/20 24 025 Active Eliquis 5 MG tablet TAKE 1 TABLET BY MOUTH TWICE DAILY 180 tablet 3 03/14/20 24 Active estradiol (Estrace) 0.1 MG/GM vaginal cream Insert 1 g into the vagina See administration instructions. 3 times a week 42.5 g 3 07/04/19 026 Active amLODIPine (Norvasc) 10 MG tablet Take 1 tablet (10 mg) by mouth Once per day. 90 tablet 3 07/04/19 026 Active Active Problems Problem Noted Date Diagnosed [...] ACS (acute coronary syndrome) 11/13/2023 Non-ST elevation [place] (NSTEMI) 11/13/2023 Fall 11/13/2023 Urinary tract infection [...] Encounters Date Type Department Care Team Description 07/04/2024 11:00 AM EST Office Visit [facility] MEDICINE [address] [place] [address] Name, MD Dimitrios Essential hypertension (Primary Dx); Recurrent UTI; Non-ischemic cardiomyopathy (CMS/HCC); PAF (paroxysmal atrial fibrillation) (CMS/HCC) 07/04/2024 Travel 07/01/2024 10:00 AM EST Office Visit [facility] [address] [place] [address] Cuate Sim MD Dysuria 07/01/2024 9:45 AM EST Office Visit [facility] MEDICINE [address] [place] [address] Ashwini Queen MD 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) 07/01/2024 Travel from Last 3 Months Immunizations Name Administration [...] Packs/Day Years Used Date Smoking Tobacco: Never Passive Smoke Exposure: Never Smokeless Tobacco: Never Tobacco Cessation:Counseling Given: [...] Date Recorded Patient Health Questionnaire-9 Score 0 07/04/2024 Patient Health Questionnaire-9 Score 0 07/04/2024 Last PHQ-9: Questionnaire Data Not on file 0 07/04/2024 Housing Stability Answer Date Recorded What is [...] Date Recorded Patient Health Questionnaire-2 Score 0 07/04/2024 Internet Access Answer Date Recorded Internet Access Q1 Yes 07/04/2024 Internet Access Q2 Not on file 07/04/2024 Comments No Sex and Gender Information Value Date Recorded Sex Assigned at Female 03/24/2022 10:35 AM EDT Legal Sex Female 10:35 AM EDT Gender Identity Female 03/24/2022 10:35 AM EDT Sexual Orientation Straight 03/24/2022 10 :35 AM EDT Last Filed Vital Signs Vital Sign Reading Time Taken Comments Blood Pressure 160/60 07/04/2024 10:48 AM EST Pulse 78 07/04/2024 10:48 AM EST Temperature 36.4 ??C (97.6 ??F) 07/04/2024 10:[address] Respiratory Rate 17 07/04/2024 10:48 AM EST Oxygen Saturation 97% 07/01/2024 10:25 AM EST Inhaled Oxygen Concentration - - Weight 64.5 kg (142 lb 4 oz) 07/04/2024 10:48 AM EST Height 157.5 cm (5' 2 ) 07/01/2024 10:25 AM EST Body Mass Index 26.02 07/01/2024 10:25 AM EST Plan of Treatment Upcoming Encounters Date Type Department Care Team (Late st Contact Info) Description 09/22/2024 10:30 AM EDT Office Visit [facility] MEDICINE [address] [place] [address] Name, MD Dimitrios [address] [place] [address] Health Maintenance Due Date Last Done Comments Derm Melanoma Skin Check 1935 Zoster Vaccines (1 of 2) 1987 Alcohol/Substance Use Screening 11/01/2024 11/02/2023 Mammogram 02/14/2025 02/15/2024, 01/23, 02/09/2023, Additional history exists Depression Screening 07/04/2025 07/04/2024, 07/04/19 25 SDOH Screening 07/04/2025 07/04/2024 Tobacco Screening 07/04/2025 07/04/2024 Lipid Panel 08/24/2028 08/25/2023, 06/25, 03/04/2022, Additional [...] Procedure Name Priority Date/Time Associated Diagnosis Comments CULTURE, URINE, ROUTINE Routine 07/01/2024 10:50 AM EST Dysuria POCT URINALYSIS DIPSTICK Routine 07/01/2024 10:46 AM EST Dysuria BI MAMMOGRAM SCREENING TOMOSYNTHESIS BILATERAL Routine 02/15/2024 11:05 AM EDT LIPID PANEL, STANDARD Routine 08/25/2023 9:48 AM EDT Essential hypertension from Last 3 Months or Most Recently Relevant to Health Maintenance Results * Culture, Urine, Routine (07/01/2024 10:50 AM EST) Urine Urine specimen obtained by clean catch procedure / Unknown 07/01/2024 10:50 AM EST 07/01/2024 4:39 PM EST Comment:UACC Narrative [facility] - 07/03/2024 11:41 AM EST Urine Culture Report Result Urine Culture < 10,000 cfu/ml Specimen Source: Urine clean catch us Cuate Sim MD LAB MICROBIOLOGY - GENERAL ORDER SUSU Final Result [facility] [address] [place] [phone] * (ABNORMAL) POCT urinalysis dipstick manually resulted [...] TEST ENTER/EDIT OR DERABLES Final Result * BI Mammogram Screening Tomosynthesis Bilateral (02/15/2024 11:05 AM EDT) Anatomical Region Laterality Modality Breast Bilateral Mammography 02/15/2024 11:0 5 AM EDT Narrative 02/26/2024 9:25 AM EDT ? [facility] ? [address] ?[place] [address] ? Mammography Report ? Signed ? Patient: Tavarez,Debbie M ?MR#: [id number] ?? 5 ? : 1935 ?Acct:[id number] ? Age/Sex: 88 / F ?ADM Date: 02/15/24 ? Loc: HO.MAMMO ? Attending : Dimitrios Cook MD ? Ordering Physician: Name,Dimitrios VYAS ?Results: 1Negative ? Date of Service: 02/15/24 ?Follow Up: 1 Year From Orig ?? inal Mammogram ? Procedure(s): MM tomosynthesis screening BI ?? Accession Number(s): [id number] ? cc: Name,Dimitrios MD ? EXAMINATION: ?? MM SCREENING DIGITAL BREAST [...] ??Lindsay Cruz DO ??02/26/2024 09:21 AM EDT ? Dictated By: ?Lindsay Cruz DO ? Signed By: ?<Electronically signed by Lindsay Cruz, DO in OV> ? 02/26/24 0921 ? DD/ 1105 ? TD/TT: 02/15/24 1135 ? Garland Maker: ? Procedure Note Alison Wolf - 02/26/2024 [facility] [address] [place] [address] Mammography Report Signed Patient: Debbie Tavarez [facility]#: [id number] 5 : 1935cct:[id number] Age/Sex: 88 / FADM Date: 02/15/24 Loc: .MAYITOO Attending Dr: Dimitrios Cook MD Ordering Physician: Dimitrios Cookesults: 1Negative Date of Service: 02/15/24Follow Up: 1 Year From Orig inal Mammogram Procedure(s): MM tomosynthesis screening BI Accession Number(s): [id number] cc: Dimitrios Cook MD EXAMINATION: MM SCREENING [...] by Lindsay Cruz DO in OV> 02/26/24 09 DD/ 1105 TD/TT: 02/15/24 1135 Garland Maker: us Dimitrios LANE BI PROCEDURES Edited Result - Final * (ABNORMAL) Lipid Panel, Standard (08/25/2023 9:48 AM EDT) Triglycerides 128 <150 mg/dL [facility] Comment:Desirable Triglyceri de: less than 150 mg/dLBorderline High Triglyceride 150-199 mg/dLHigh Triglyceride: 200-499 mg/dLVery High Triglyceride: greater than or equal to 5OO mg/dL Cholesterol 122 <200 mg/dL [facility] Comment:Desirable Cholestero l: less than 200 mg/dLBorderline High Cholesterol: 200-239 mg/dLHigh Cholesterol: greater than 239 mg/dL LDL Cholesterol Calculated 65 <100 mg/dL [facility] Comment:Desirable LDL: less than 100 mg/dLNear Optimal/Above Optimal LDL: 110- 129 mg/dLBorderline High LDL: 130-159 mg/dLHigh LDL: 160-189 mg/dLVery High LDL: greater than or equal to 190 mg/dL HDL Cholesterol 32(L) >40 mg/dL [facility] Comment:Desirable HDL: great er than 40 mg/dL Note: This HDL assay may give artificially low results in patients with liver disease. Blood Venous blood specimen / Unknown 08/25/2023 9:48 AM EDT 08/25/2023 12:50 PM EDT Dimitrios Name LAB BLOOD ORDERABLES Final Resul t [facility] [address] [place] [address] [phone] from Last 3 Months or Most Recently Relevant to Health Maintenance Insurance [facility] MEDICARE ADVANTAGE HMO Care Teams Ornamenter Hand Relationship Specialty Start Date End Date Name, MD Dimitrios [address] [place] [phone] PCP - General Internal Medicine 07/03/22
--- OUTSIDE RECORDS SUMMARY | 2024-09-14 13:19 | XMS_ITS | Encounter Summary ---
Author Organization [facility] [employer] [facility] Address [address] [place] [address] 7 [place] [address] Care Team Providers Care Home Health Manager Name Role Phone Name, Dimitrios VYAS Primary Care Provider [phone] Reason for Visit * Reason Comments Med Refill Encounter Details Date Type Department Care Team (Late Contact Info) Description 01/30/2023 Refill [facility] MED[facility]INE [address] [place] [address] [phone] NameDimitrios MD [address] [place] [phone] Social History Tobacco Use Types Packs/Day Years [...] Description 09/22/2024 10:30 AM EDT Office Visit [facility] MED[facility]INE [address] [place] [address] [phone] Dimitrios Cook MD [address] [place] [address] documented as of this encounter Visit Diagnoses Not on filedocumented in this encounter Care Teams Home Health Manager Relationship Specialty Start Date End Date Name, MD Dimitrios [address] [place] [address] PCP - General Internal Medicine 07/03/22 documented as of this encounter
--- OUTSIDE RECORDS SUMMARY | 2024-09-14 13:19 | XMS_ITS | Encounter Summary ---
Author Organization [employer] Address [address] [facility] 7t [place] [address] Care Team Providers Care Ski Lift Attendant Name Role Phone Name, Dimitrios VYAS Primary Care Provider [phone] Reason for Visit * Reason Comments Med Refill Encounter Details Date Type Department Care Team ([facility] st Contact Info) Description 01/03/2024 Refill [facility] [address] [place], [place] [phone] Ida Saab NP [address] [place], [place] [phone] Social History Tobacco Use Types Packs/Day Years [...] Description 09/22/2024 10:30 AM EDT Office Visit [facility] MEDICINE [address] [place] [address] NameDimitrios MD [address] [place] [address] documented as of this encounter Visit Diagnoses Not on filedocumented in this encounter Additional Health Concerns Assessment Noted Time PHQ-9 Depression Total Score: 0 08/19/19 24 11:21 AM EDT documented as of this encounter Care Teams Ski Lift Attendant Relationship Specialty Start Date End Date NameDimitrios MD [address] [place] [address] PCP - General Internal Medicine 07/03/22 documented as of this encounter
[2024-09-14 13:23] LABS: MANUAL DIFF FLAG NO
[2024-09-14 13:49] LABS: Basophils Absolute Auto 0.1 X10*3/uL (0.0-0.2); Basophils Percent Auto 0.7 % (0-2); Eosinophils Absolute Auto 0.1 X10*3/uL (0.0-0.4); Eosinophils Percent Auto 1.1 % (0-4); Hematocrit 40.8 % (37.0-47.0); Hemoglobin 13.5 g/dl (12.0-16.0); Imm Gran Abs Auto 0.11 X10*3/uL (0.00-0.03); Imm Gran Pct Auto 1.2 % (0.0-0.4); Lymphocytes Absolute Auto 1.2 X10*3/uL (1.2-4.9); Lymphocytes Percent Auto 12.2 % (20-40); Mean Corpuscular HGB Conc 33.1 g/dl (31.0-35.0); Mean Corpuscular Hemoglobin 32.2 pg (27.0-33.0); Mean Corpuscular Volume 97.4 fL (80.0-98.0); Mean Platelet Volume 12.8 fL (9.4-12.3); Monocytes Absolute Auto 0.3 X10*3/uL (0.1-1.2); Monocytes Percent Auto 2.7 % (2-11); Neutrophils Absolute Auto 7.8 x10*3/uL (2.0-8.3); Neutrophils Percent Auto 82.1 % (45-73); Platelet Count 283 X10*3/uL (160-400); Red Blood Count 4.19 X10*6/uL (4.20-5.50); Red Cell Distribution Width 14.5 % (11.0-16.0); White Blood Count 9.5 X10*3/uL (4.8-10.8)
[2024-09-14 13:53] LABS: Anion Gap 14 (12-20); Blood Urea Nitrogen 24 mg/dL (9-16); Calcium 9.6 mg/dL (8.4-10.2); Carbon Dioxide 21 mmol/L (22-29); Chloride 108 mmol/L (96-108); Estimated Glomerular Filt Rate > 60; Glucose Random 89 mg/dL (60-115); Potassium 4.5 mmol/L (3.3-5.1); Sodium 138 mmol/L (135-145)
== END 2024-09-14 11:02 | disposition home or self-care (01) ==
LOC: HO.HHCL 11:01
PROVIDERS: Nurse Practitioner Family; Visit Provider Internal Medicine Geriatric Medicine
DX: I10 Essential (primary) hypertension (principal)
CPT/HCPCS: 36415; 80048; 85025

== ENCOUNTER 2024-09-29 15:39 | Outpatient (AMB) | payer MEDICARE, SELFPAY ==
--- NOTE | 2024-09-29 15:59 | MHC.OFFVIS ---
Intake Visit Reasons: Followup Intake Note: Patient is present for a follow up Urology Med: None Antibiotic Allergy: None Blood Thinner: None Allergies hydromorphone [From DILAUDID] Allergy (Intermediate, Verified 09/29/24 16:07) ITCHY ALL OVER HPI Comments Details: 09/29/24-- 06/30/24--followed for LUTS urgency, recurrent UTI's. LV 05/30/24-was seen for office cystoscopy which noted bladder wall thickening and inflammatory changes c/w cystitis. She was placed on suppressive course of keflex 250 mg daily for 21 days. The patient states she tolerated the antibiotic. She states she is up less at night to urinate and daytime urgency is also improved. She admits that she may delay going to the bathroom to urinate when she gets see initial sensation that her bladder is full which is sometimes problematic. Plan encouraged timed voiding and avoiding dietary bladder irritants. fu in 4 months. 05/30/24--Here for cystoscopy--cystoscopy findings inflammatory changes consistent with cystitis bladder wall thickening. No suspicious bladder lesions. Pelvic exam atrophic in narrow introitus atrophic urethra with small caruncle. 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 history of right partial nephrectomy otherwise kidneys within normal limits. The patient states that since the UTIs she has had more urinary urgency. Cystoscopy today inflammatory changes consistent with cystitis. We will place her on a 21 day suppressive course of antibiotics Keflex 250 mg daily. Follow-up to discuss any improvement in her urinary symptoms of urgency. 04/11/24--Debbie is an 88-year-old female who is here for evaluation due to recurrent UTI. The patient states she was hospitalized in September due to the severe urinary tract infection. During the hospitalization she was transferred to [facility] due to some heart complications. She is currently on blood thinners for atrial fib. She was recently seen by refinisher who referred her to our office. In review his note a recent Holter noted LV ejection fraction about 60%. The patient states she has also monitored by her PCP for chronic kidney disease -3. Urinalysis no signs infection 1+ protein. The patient states she wears a pad for in case she waits too long she may leak a little prior to getting to the bathroom. She denies constipation or diarrhea. I have discussed further evaluation with ultrasound imaging and follow-up office cystoscopy, pelvic exam at that time. [facility] Medical History ACS (acute coronary syndrome) Chronic kidney disease, stage III (moderate) Dyslipidemia Glaucoma HTN (hypertension) Chronic dermatitis Thrombocytopenia Surgical History Hx of partial nephrectomy History of bilateral knee replacement Family History Mother Breast cancer Brother Alzheimers disease Son Stroke Rectal adenocarcinoma Social History Household Members: Spouse and None Housing: House Alcohol intake: former Patient Tobacco Use Status: Never used Tobacco service: No Current occupational status: retired Office Procedures Post Void Residual Post Residual Void Post Void Residual (PVR): 0 [id number]-[id number] Void Residual by ultrasound Results AMB Urinalysis, Automated UA Leukoctes 0 Helder/uL Last Edit by Sharon Delgado on 09/29/24 16:52 UA Nitrite Negative Last Edit by Sharon Delgado on 09/29/24 16:52 UA Urobilinogen 0.2 mg/dL Last Edit by Sharon Delgado on 09/29/24 16:52 UA Protein 0 mg/dL Last Edit by Sharon Delgado on 09/29/24 16:52 UA pH 6.0 Last Edit by Sharon Delgado on 09/29/24 16:52 UA Blood 0 Papi/uL Last Edit by Sharon Delgado on 09/29/24 16:52 UA Specific [place] 1.015 Last Edit by Sharon Delgado on 09/29/24 16:52 UA Ketone Negative Last Edit by Sharon Delgado on 09/29/24 16:52 UA Bilirubin 0 mg/dL Last Edit by Sharon Delgado on 09/29/24 16:52 UA Glucose 0 mg/dL Last Edit by Sharon Delgado on 09/29/24 16:52 Assessment & Plan Assessment & Plan Orders: Orders AMB Urinalysis Automated Today Z13.9 - Encounter for screening, unspecified Coding CPT Codes Post Residual Void - PVR CPT Code: 79054-Aqvx Void Residual by ultrasound ([id number])
--- OUTSIDE RECORDS SUMMARY | 2024-09-29 16:05 | XMS_ITS | Encounter Summary ---
Author Organization [employer] Address [address] 7t [place] [address] Care Team Providers Care Bottom Loader Name Role Phone Name, Dimitrios VYAS Primary Care Provider [phone] Reason for Visit * Reason Onset Date Comments Nurse Triage 03/15/2024 Encounter Details Date Type Department Care Team ([facility] st Contact Info) Description 03/15/2024 Telephone [facility] [address] [place], [place] [phone] Name, MD Dimitrios [address] [place] [address] Nurse Triage Social History Tobacco Use Types [...] fever. Pt will be going away to [place] to be with son for a week. Leaving this Thursday. Pt is advised to come to [facility] today to be seen by provider and [...] Care Team (Late st Contact Info) Description 01/11/2025 9:45 AM EDT Office Visit [facility] [address] [place] [address] Name, MD Dimitrios [address] [place] [address] documented as of this encounter Visit Diagnoses Not on filedocumented in this encounter Additional Health Concerns Assessment Noted Time PHQ-9 Depression Total Score: 0 08/19/19 24 11:21 AM EDT documented as of this encounter Care Teams Bottom Loader Relationship Specialty Start Date End Date Name, MD Dimitrios [address] [place] [address] PCP - General Internal Medicine 07/03/22 documented as of this encounter
--- OUTSIDE RECORDS SUMMARY | 2024-09-29 16:05 | XMS_ITS | Encounter Summary ---
Author Organization [employer] Address [address] [place] [address] 7 [place] [address] Care Team Providers Care Distribution Associate Name Role Phone Name, Dimitrios VYAS Primary Care Provider [phone] Reason for Visit * Reason Comments Med Refill Encounter Details Date Type Department Care Team (Late Contact Info) Description 01/30/2023 Refill [facility] [address] [place] [address] [phone] NameDimitrios MD [address] [place] [address] [phone] Social History Tobacco Use Types Packs/Day Years [...] Description 01/11/2025 9:45 AM EDT Office Visit [facility] [address] [place] [address] [phone] Dimitrios Cook MD [address] [place] [address] [phone] documented as of this encounter Visit Diagnoses Not on filedocumented in this encounter Care Teams Distribution Associate Relationship Specialty Start Date End Date Name, MD Dimitrios [address] [place] [address] PCP - General Internal Medicine 07/03/22 documented as of this encounter
--- OUTSIDE RECORDS SUMMARY | 2024-09-29 16:05 | XMS_ITS | Encounter Summary ---
Author Organization [employer] Address [address] 7[address] [place] [address] Care Team Providers Care Morning News Producer Name Role Phone Name, Dimitrios VYAS Primary Care Provider [phone] Reason for Visit * Reason Onset Date Comments december recalls 09/28/2024 Encounter Details Date Type Department Care Team ([facility] st Contact Info) Description 09/28/2024 Telephone [facility] [address] [place], [place] [phone] Chester Baxter [place] december recalls Social History Tobacco Use Types Packs/Day Years Used Date Smoking Tobacco: Never Passive Smoke Exposure: Never Smokeless Tobacco: Never Alcohol Use Standard [...] is your housing situation today? I have nghiabhargavi vergara 08/19/[address] you [...] encounter Miscellaneous Notes * Telephone Encounter - Chester Baxter MA - 09/28/2024 3:51 PM EDT Telephone call to patient to schedule the following recall: Visit type: Follow up Appointment notes: HTN Patient agree to appointment on 01/11/25 at 9;45 AM with Name. documented in this encounter Plan of Treatment Upcoming Encounters Date Type Department Care Team (Late st Contact Info) Description 01/11/2025 9:45 AM EDT Office Visit [facility] [address] [place] [address] Name, MD Dimitrios [address] [place] [address] documented as of this encounter Visit Diagnoses Not on filedocumented in this encounter Additional Health Concerns Assessment Noted Time PHQ-9 Depression Total Score: 0 07/04/19 10:50 AM EST documented as of this encounter Care Teams Morning News Producer Relationship Specialty Start Date End Date Name, MD Dimitrios [address] [place] [id number] PCP - General Internal Medicine 07/03/22 documented as of this encounter
--- OUTSIDE RECORDS SUMMARY | 2024-09-29 16:05 | XMS_ITS | Encounter Summary ---
Author Organization [employer] Address [address] [facility] 7t [place] [address] Care Team Providers Care Records Management Coordinator Name Role Phone Name, Dimitrios VYAS Primary Care Provider [phone] Encounter Details Date Type Department Care Team ([facility] Contact Info) Description 07/23/2022 Telephone [facility] [address] [place] [address] [phone] Name, MD Dimitrios [address] [place] [address] [phone] Social History Tobacco Use Types Packs/Day Years [...] Upcoming Encounters Date Type Department Care Team ([facility] Contact Info) Description 01/11/2025 9:45 AM EDT Office Visit [facility] [address] [place] [phone] Name, MD Dimitrios [address] [place] [address] [phone] documented as of this encounter Visit Diagnoses Not on filedocumented in this encounter Care Teams Records Management Coordinator Relationship Specialty Start Date End Date Name, MD Dimitrios [address] [place] [address] PCP - General Internal Medicine 07/03/22 documented as of this encounter
--- OUTSIDE RECORDS SUMMARY | 2024-09-29 16:05 | XMS_ITS | Encounter Summary ---
Author Organization [employer] Address [address] 7t [place] [address] Care Team Providers Care Manager Internet Name Role Phone Name, Dimitrios VYAS Primary Care Provider [phone] Reason for Visit * Reason Onset Date Comments FYI 10/20/2023 Encounter Details Date Type Department Care Team ([facility] st Contact Info) Description 10/20/2023 Telephone [facility] MED[facility]INE [address] [place], [place] [phone] Name, MD Dimitrios [address] [place], [place] [phone] FYI Social History Tobacco Use Types Packs/Day [...] RN - 10/20/2023 2:[address] [facility] walk in note is in pt's chart and HDF is scheduled 11/02/23. * Telephone Encounter - Radha Taylor - 10/20/2023 12:58 PM EDT Tc from pt calling to report an increase in dosage on losartan (Cozaar) 50 MG tablet. Pt states went to [facility] walk in ([place]) for chest tightness/difficulty breathing and losartan was increased to 100 mg. Any questions/clarification, contact pt at [phone] documented in this encounter Plan of Treatment Upcoming Encounters Date Type Department Care Team (Late st Contact Info) Description 01/11/2025 9:45 AM EDT Office Visit [facility]INE [address] [place] [address] Name, MD Dimitrios [address] [place] [address] documented as of this encounter Visit Diagnoses Not on filedocumented in this encounter Additional Health Concerns Assessment Noted Time PHQ-9 Depression Total Score: 0 08/19/19 11:21 AM EDT documented as of this encounter Care Teams Manager Internet Relationship Specialty Start Date End Date Name, MD Dimitrios [address] [place] [address] PCP - General Internal Medicine 07/03/22 documented as of this encounter
--- OUTSIDE RECORDS SUMMARY | 2024-09-29 16:05 | XMS_ITS | Encounter Summary ---
Author Organization [employer] Address [address] 7[address] [place] [address] Care Team Providers Care Correctional Supply Supervisor Name Role Phone Name, Dimitrios VYAS Primary Care Provider [phone] Reason for Visit * Reason Comments Med Refill Encounter Details Date Type Department Care Team ([facility] st Contact Info) Description 01/03/2024 Refill [facility] [address] [place], [place] [phone] Ida Saab NP 230 [place] [address] Social History Tobacco Use Types Packs/Day Years [...] Description 01/11/2025 9:45 AM EDT Office Visit [facility] [address] [place] [address] Name, MD Dimitrios [address] [place] [address] documented as of this encounter Visit Diagnoses Not on filedocumented in this encounter Additional Health Concerns Assessment Noted Time PHQ-9 Depression Total Score: 0 08/19/19 24 11:21 AM EDT documented as of this encounter Care Teams Correctional Supply Supervisor Relationship Specialty Start Date End Date NameDimitrios MD [address] [place] [phone] PCP - General Internal Medicine 07/03/22 documented as of this encounter
--- OUTSIDE RECORDS SUMMARY | 2024-09-29 16:05 | XMS_ITS | Clinical Summary ---
Author Organization [employer] Address [address] [facility] 7t [place] [address] Care Team Providers Care Decorating Inspector Name Role Phone Name, Dimitrios VYAS Primary Care Provider [phone] Allergies Active Allergy Reactions Criticality Noted Date Comments Hydromorphone 06/21/2019 Medications hydroxyurea (Hydrea) 500 MG capsule take (20MG/KG) by oral route 5 days a week Active ketorolac (Acular) 0.5 % ophthalmic solution 023 Active latanoprost (Xalatan) 0.005 % ophthalmic solution 023 Active multivitamin (Theragran) tablet take 1 tablet by oral route every day with food Active acitretin (Soriatane) 10 MG capsuleIndicati ons:DSAP (disseminated superficial actinic porokeratosis) Take 1 capsule (10 mg) by mouth with lunch. 30 capsule 3 024 Active pravastatin (Pravachol) 40 MG tabletIndicatio ns:Hypertension , unspecified type TAKE 1 TABLET BY MOUTH DAILY 100 tablet 2 024 Active metoprolol succinate XL (Toprol XL) 25 MG 24 hr tablet Take 1 tablet (25 mg) by mouth Once per day. Do not crush or chew. 90 tablet 3 024 2024 Active Eliquis 5 MG tablet TAKE 1 TABLET BY MOUTH TWICE DAILY 180 tablet 3 024 Active estradiol (Estrace) 0.1 MG/GM vaginal cream Insert 1 g into the vagina See administration instructions. 3 times a week 42.5 g 3 025 2025 Active amLODIPine (Norvasc) 10 MG tablet Take 1 tablet (10 mg) by mouth Once per day. 90 tablet 3 025 2025 Active losartan (Cozaar) 50 MG tabletIndicatio ns:Primary hypertension TAKE 1 TABLET BY MOUTH TWICE A DAY 180 tablet 3 025 Active Calcium Carb-Cholecalci ferol (Caltrate 600+D3) 600-20 MG-MCG tablet Take 1 tablet by mouth Once per day. 025 Active losartan (Cozaar) 50 MG tabletIndicatio ns:Primary hypertension Take 1 tablet (50 mg) by mouth 2 times daily. 180 tablet 3 024 2024 Discontinued(R eorder (will not trigger notification to Pharmacy)) cefpodoxime (Vantin) 200 MG tablet Take 1 tablet (200 mg) by mouth 2 times daily for 5 days. 10 tablet 025 2024 Active Problems Problem Noted Date Diagnosed Date Osteopenia 09/22/2024 PAF (paroxysmal atrial fibrillation) 12/17/2023 Essential thrombocytosis [...] ACS (acute coronary syndrome) 11/13/2023 Non-ST elevation [place] (NSTEMI) 11/13/2023 Fall 11/13/2023 Recurrent UTI 11/13/2023 Assessment & Plan (12/20/2023 7:24 PM [...] Encounters Date Type Department Care Team Description 09/28/2024 Telephone [facility] [address] [place] [address] Chester Baxter [place] december recalls 09/22/2024 10:30 AM EDT Office Visit [facility] [address] [place] [address] Dimitrios Cook MD Primary hypertension (Primary Dx); Paroxysmal atrial fibrillation (CMS/HCC); Recurrent UTI; Osteopenia, unspecified location 09/22/2024 Travel 09/20/2024 Telephone [facility] [address] [place] [address] Puja Amin MA chartprep 09/20/2024 Telephone [facility] [address] [place] [address] Puja Amin [place] 09/14/[address] [address] Dimitrios Cook MD Primary hypertension 07/04/2024 11:00 AM EST Office Visit [facility] [address] [place] [address] Dimitrios Cook MD Essential hypertension (Primary Dx); Recurrent UTI; Non-ischemic cardiomyopathy (CMS/HCC); PAF (paroxysmal atrial fibrillation) (CMS/HCC) 07/04/2024 Travel from Last 3 Months Immunizations Name Administration Dates Next Due Influenza High-dose Quadriva lent Preservative Free 02/25/2022,03/11/2021,01/26/2020,03/11,03/05/2015,02/05/2015,03/15/2014 Influenza injectable quadriv alent preservative free 02/04/2023,02/22/2019 Influenza, High Dose Seasona l, Preservative Free 02/05/2024,03/12/2017 Influenza, seasonal, injecta ble, preservative free 03/04/2016,03/10/2012,04/02/2011,01/31,03/14/2008,03/10/2007,03/09/2006 Pfizer Covid-19 Vaccine 12+ 02/22/2024,11/27/202 3 Pfizer Covid-19 Vaccine 12+ Bivalent 02/25/2022 Pneumococcal [...] Sign Reading Time Taken Comments Blood Pressure 144/90 09/22/2024 10:24 AM EDT Pulse 52 09/22/2024 10:24 AM EDT Temperature 36.8 ??C (98.3 ??F) 09/22/2024 10:24 AM E DT Respiratory Rate 19 09/22/2024 10:24 AM EDT Oxygen Saturation 98% 09/22/2024 10:24 AM EDT Inhaled Oxygen Concentration - - Weight 65.3 kg (144 lb) 09/22/2024 10:24 AM EDT Height 157.5 cm (5' 2 ) 09/22/2024 10:24 AM EDT Body Mass Index 26.34 09/22/2024 10:24 AM EDT Plan of Treatment Upcoming Encounters Date Type Department Care Team (Late st Contact Info) Description 01/11/2025 9:45 AM EDT Office Visit [facility] [address] [place] [address] Name, MD Dimitrios [address] [place] [address] Health Maintenance Due Date Last Done Comments Derm Melanoma Skin Check 1935 Zoster Vaccines (1 of 2) 1987 Mammogram 02/14/2025 02/15/2024, 01/23, 02/09/2023, Additional history exists Depression Screening 07/04/2025 07/04/2024, 07/04/19 25 SDOH Screening 07/04/2025 07/04/2024 Alcohol/Substance Use Screening 09/22/2025 09/22/2024 Tobacco Screening 09/22/2025 09/22/2024 Lipid Panel 08/24/2028 08/25/2023, 06/25, 03/04/2022, Additional [...] Procedure Name Priority Date/Time Associated Diagnosis Comments BASIC METABOLIC PANEL Routine 09/14/2024 11:04 AM EDT Dysuria CBC WITH AUTO DIFFERENTIAL Routine 09/14/2024 11:04 AM EDT Dysuria BI MAMMOGRAM SCREENING TOMOSYNTHESIS BILATERAL Routine 02/15/2024 11:05 AM EDT LIPID PANEL, STANDARD Routine 08/25/2023 9:48 AM EDT Essential hypertension from Last 3 Months or Most Recently Relevant to Health Maintenance Results * (ABNORMAL) CBC auto differential (09/14/2024 11:04 AM EDT) White Blood Count 9.5 4.8 - 10.8 X10*3/uL [facility] Red Blood Count 4.19(L) 4.20 - 5.50 X10*6/uL [facility] Hemoglobin 13.5 12.0 - 16.0 g/dl [facility] Hematocrit 40.8 37.0 - 47.0 % [facility] Mean Corpuscular Volume 97.4 80.0 - 98.0 fL [facility] Mean Corpuscular Hemoglobin 32.2 27.0 - 33.0 pg [facility] Mean Corpuscular HGB Conc 33.1 31.0 - 35.0 g/dl [facility] Red Cell Distribution Width 14.5 11.0 - 16.0 % [facility] Platelet Count 283 160 - 400 X10*3/uL [facility] Mean Platelet Volume 12.8(H) 9.4 - 12.3 fL [facility] Neutrophils Percent Auto 82.1(H) 45 - 73 % [facility] Imm Gran Pct Auto 1.2(H) 0.0 - 0.4 % [facility] Lymphocytes Percent Auto 12.2(L) 20 - 40 % [facility] Monocytes Percent Auto 2.7 2 - 11 % [facility] Eosinophils Percent Auto 1.1 0 - 4 % [facility] Basophils Percent Auto 0.7 0 - 2 % [facility] NRBC Pct Auto 0.0 0.0 - 0.2 /100WBC [facility] Neutrophils Absolute Auto 7.8 2.0 - 8.3 x10*3/uL [facility] Imm Gran Abs Auto 0.11(H) 0.00 - 0.03 X10*3/uL [facility] Lymphocytes Absolute Auto 1.2 1.2 - 4.9 X10*3/uL [facility] Monocytes Absolute Auto 0.3 0.1 - 1.2 X10*3/uL [facility] Eosinophils Absolute Auto 0.1 0.0 - 0.4 X10*3/uL [facility] Basophils Absolute Auto 0.1 0.0 - 0.2 X10*3/uL [facility] NRBC Abs Auto 0.000 0.0 - 0.012 X10*3/uL [facility] Blood Venous blood specimen / Unknown 09/14/2024 11:04 AM EDT 09/14/2024 1:08 PM EDT us Ida Saab NP LAB BLOOD ORDERABLES Final Resul t [facility] [address] [place] [address] [phone] * (ABNORMAL) Basic Metabolic Panel (09/14/2024 11:04 AM EDT) Sodium 138 135 - 145 mmol/L [facility] Potassium 4.5 3.3 - 5.1 mmol/L [facility] Chloride 108 96 - 108 mmol/L [facility] Carbon Dioxide 21(L) 22 - 29 mmol/L [facility] Anion Gap 14 12 - 20 [facility] Urea Nitrogen (BUN) 24(H) 9 - 16 mg/dL [facility] Creatinine, Serum 0.86 0.5 - 1.4 mg/dL [facility] Estimated Glomerular Filt Rate >60 [facility] Comment:Chronic Kidney Disea se: Estimated GFR < 60 mL/min/1.37b1Onhwwt Kidney Disease: Estimated GFR < 15 mL/min/1.73m2 Glucose 89 60 - 115 mg/dL [facility] Calcium 9.6 8.4 - 10.2 mg/dL [facility] Blood Venous blood specimen / Unknown 09/14/2024 11:04 AM EDT 09/14/2024 1:08 PM EDT us Ida Saab NP LAB BLOOD ORDERABLES Final Resul t Performing Organization Address [facility] Co de Phone Number [facility] [address] [place] [address] [phone] * BI Mammogram Screening Tomosynthesis Bilateral (02/15/2024 11:05 AM EDT) Anatomical Region Laterality Modality Breast Bilateral Mammography 02/15/2024 11:0 5 AM EDT Narrative 02/26/2024 9:25 AM EDT ? [facility] ? [address] ?[place] [address] ? Mammography Report ? Signed ? Patient: Tavarez,Debbie M ?MR#: [id number] ?? 5 ? : 1935 ?Acct:[id number] ? Age/Sex: 88 / F ?ADM Date: 09/23/24 ? Loc: HO.MAMMO ? Attending Dr: Dimitrios Cook MD ? Ordering Physician: Dimitrios Cook MD ?Results: 1Negative ? Date of Service: 02/15/24 ?Follow Up: 1 Year From Orig ?? inal Mammogram ? Procedure(s): MM tomosynthesis screening BI ?? Accession Number(s): [id number] ? cc: Joyce,Dimitrios VYAS ? EXAMINATION: ?? [...] DD/ 1105 ? TD/TT: 02/15/24 1135 ? Principal Examiner: ? Procedure Note Donotuseinterpreter, Image - [facility] [address] [place] [address] Mammography Report Signed Patient: Debbie Tavarez MMR#: [id number] 5 : 7Acct:[id number] Age/Sex: 88 / FADM Date: 02/15/24 Loc: HO.MAMMO Attending Dr: Dimitrios Cook MD Ordering Physician: Dimitrios Cook MDResults: 1Negative Date of Service: 02/15/24Follow Up: 1 Year From Orig inal Mammogram Procedure(s): MM tomosynthesis screening BI Accession Number(s): [id number] cc: Dimitrios Cook MD EXAMINATION: MM SCREENING [...] 02/26/24 0921 DD/ 1105 TD/TT: 02/15/24 1135 Principal Examiner: us Plunkett Name IMG BI PROCEDURES Edited Result - Final * (ABNORMAL) Lipid Panel, Standard (08/25/2023 9:48 AM EDT) Triglycerides 128 <150 mg/dL [facility] Comment:Desirable Triglyceri de: less than 150 mg/dLBorderline High Triglyceride 150-199 mg/dLHigh Triglyceride: 200-499 mg/dLVery High Triglyceride: greater than or equal to 5OO mg/dL Cholesterol 122 <200 mg/dL [facility] Comment:Desirable Cholestero l: less than 200 mg/dLBorderline High Cholesterol: 200-239 mg/dLHigh Cholesterol: greater than 239 mg/dL LDL Cholesterol Calculated 65 <100 mg/dL [facility] Comment:Desirable LDL: less than 100 mg/dLNear Optimal/Above Optimal LDL: 110- 129 mg/dLBorderline High LDL: 130-159 mg/dLHigh LDL: 160-189 mg/dLVery High LDL: greater than or equal to 190 mg/dL HDL Cholesterol 32(L) >40 mg/dL [facility] Comment:Desirable HDL: great er than 40 mg/dL Note: This HDL assay may give artificially low results in patients with liver disease. Blood Venous blood specimen / Unknown 08/25/2023 9:48 AM EDT 08/25/2023 12:50 PM EDT us Dimitrios Cook MD LAB BLOOD ORDERABLES Final Resul t [facility] [address] [place] [phone] from Last 3 Months or Most Recently Relevant to Health Maintenance Insurance [employer] [phone] [place] [id number] Care Teams Decorating Inspector Relationship Specialty Start Date End Date Name, MD Dimitrios [address] [place] [address] PCP - General Internal Medicine 07/03/22
== END 2024-09-29 16:45 | disposition home or self-care (01) ==
LOC: HO.HUSH 15:39
PROVIDERS: PCP Internal Medicine Geriatric Medicine; Visit Provider Urology
DX: Z13.9 Encounter for screening, unspecified (principal)

== ENCOUNTER → 2024-09-29 15:39 | Outpatient (BNVA) | payer MEDICARE, SELFPAY | PROVIDERS: PCP Internal Medicine Geriatric Medicine; Visit Provider Urology | DX: R39.81 Functional urinary incontinence (principal); N30.90 Cystitis, unspecified without hematuria; N36.2 Urethral caruncle | CPT/HCPCS: 51798; 81003; 99212 ==

== ENCOUNTER 2024-10-03 15:15 | Outpatient (AMB) | payer MEDICARE, SELFPAY ==
[2024-10-03 15:18] VITALS: BP 128/72; PULSE 51; BMI 26.2
--- NOTE | 2024-10-03 15:18 | MHC.OFFVIS ---
Vital Signs 10/03/24 15:18 Height 5 ft 2 in Weight 143 lb 4.807 oz BMI 26.2 BP 128/72 Blood Pressure Location Lt brachial Position Sitting Pulse 51 Intake Visit Reasons: 6 mth f/up Intake Note: 6 month follow-up with ekg concern heart rate is on low side Police Officer Crime Prevention Required: No Allergies hydromorphone [From DILAUDID] Allergy (Intermediate, Verified 09/29/24 16:07) ITCHY ALL OVER Medication List - Last Reconciled 10/03/24 by Juan Keating MD amlodipine 10 mg PO DAILY apixaban (Eliquis) 5 mg PO BID estradiol 0.01%(0.1mg/gram) vaginal hydroxyurea 1 cap PO TUTHSA@0900 losartan 50 mg PO BID metoprolol succinate ER 25 mg PO DAILY multivitamin 1 tab PO DAILY pravastatin 40 mg PO BEDTIME HPI Comments Details: Debbie comes for follow-up. Overall she has been doing very well. She remains very functional and active and has no progressive symptoms. Occasional vague feeling in her head no clear lightheadedness or syncope. She is worried about a low heart rate although heart rate has been in the low 50s for some time now. She has not noted any prolonged irregular heartbeat or palpitations. No bleeding issues or neurologic events. No syncopal episodes. No orthopnea, PND, leg edema. No exertional chest pain PFSH Medical History ACS (acute coronary syndrome) Chronic kidney disease, stage III (moderate) Dyslipidemia Glaucoma HTN (hypertension) Chronic dermatitis Thrombocytopenia Surgical History Hx of partial nephrectomy History of bilateral knee replacement Family History Mother Breast cancer Brother Alzheimers disease Son Stroke Rectal adenocarcinoma Social History Household Members: Spouse and None Housing: House Alcohol intake: former Patient Tobacco Use Status: Never used Tobacco service: No Current occupational status: retired Review of Systems Const Denies chills, Denies fatigue, Denies fever(s), Denies frequent falls, Denies weakness, Denies weight gain and Denies weight loss ENT Denies dizziness Card Denies chest pain, Denies leg edema, Denies lightheadedness, Denies palpitations, Denies dyspnea, Denies dyspnea on exertion, Denies orthopnea and Denies other (loss of consciousness) Resp Denies cough, Denies dyspnea and Denies dyspnea on exertion GI Denies hematochezia and Denies change in stool character Musc Denies abnormal gait, Denies muscle weakness, Denies numbness, Denies radiating pain into limb and Denies tingling Neuro Denies abnormal gait, Denies dizziness, Denies frequent falls, Denies numbness, Denies tingling and Denies weakness Endo Denies fatigue and Denies palpitations Physical Exam Vital Signs: Last Vital Signs Pulse 51 10/03/24 15:18 BP 128/72 10/03/24 15:18 BMI result Body Mass Index 26.2 Const General: cooperative, comfortable, no acute distress, well developed, alert, awake and anxious Nutritional Appearance: average body habitus and well nourished Orientation/consciousness: patient oriented x3 Limitations: ambulation with cane Neck Neck: Yes trachea midline, Yes supple and Yes no JVD Resp Effort & Inspection: normal respiratory effort Auscultation: clear to auscultation bilaterally Cardio Jugular venous distension: no JVD Palpation: normal PMI Rate: regular rate Rhythm: regular rhythm Heart sounds: S1 normal heart sound present, S2 normal heart sound present, no click, no gallops and no murmurs GI Auscultation: normal bowel sounds Skin General skin exam: no rashes or lesions noted and ecchymosis Neuro General: patient oriented x3 and no focal motor deficits Extrem General: Yes no clubbing, cyanosis or edema Office Procedures EKG Details: EKG shows sinus bradycardia with left bundle-branch block 75843-Ufuckqbzeixqexvmo, Complete Assessment & Plan Assessment & Plan (1) PAF (paroxysmal atrial fibrillation): Code(s): I48.0 - Paroxysmal atrial fibrillation Category: Medical Plan: Paroxysmal atrial fibrillation this elderly lady without any significant clinical recurrence. She has done well with rhythm control approach. Continue low-dose metoprolol therapy. She does have baseline bradycardia but has no clear symptoms related to it. No change in therapy and no need for antiarrhythmic drug therapy. No indication for pacing therapy. Continue full oral anticoagulation, currently on Eliquis 5 mg b.i.d.. Quarterly renal function test should be performed. 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 Continue neurohormonal modulation with losartan as well as metoprolol therapy. Continue rhythm control approach. Continue amlodipine therapy. Advised to monitor blood pressure at home and maintain a log. Goal blood pressure less than 130/84. Low-salt diet was discussed. No signs or symptoms of heart failure. Follow up in the clinic in 6 months time after echo and Holter monitor. Thank you for allowing me to partake in her care Orders: Orders CA echo transthoracic complete 6 Months I42.9 - Cardiomyopathy, unspecified ECG 3 day holter monitor 6 Months I48.0 - Paroxysmal atrial fibrillation Coding Level of Care Code Est Pt Level 4 (48423) Complex EM visit Add On G2211 Diagnoses PAF (paroxysmal atrial fibrillation) I48.0 Cardiomyopathy I42.9 CPT Codes EKG - CPT: 95213-Bpuvbjrfawovyjdwl, Complete ([id number])
--- OUTSIDE RECORDS SUMMARY | 2024-10-03 15:20 | XMS_ITS | Encounter Summary ---
Author Organization [employer] Address [address] [facility] 7t [place] [address] Care Team Providers Care Academic Program Specialist Name Role Phone Name, Dimitrios VYAS Primary Care Provider [phone] Encounter Details Date Type Department Care Team ([facility] Contact Info) Description 07/23/2022 Telephone [facility] [address] [place] [address] [phone] Name, MD Dimitrios [address] [place] [address] [phone] Social History Tobacco Use Types Packs/Day Years [...] Upcoming Encounters Date Type Department Care Team ([facility] Contact Info) Description 01/11/2025 9:45 AM EDT Office Visit [facility] [address] [place] [phone] Name, MD Dimitrios [address] [place] [address] [phone] documented as of this encounter Visit Diagnoses Not on filedocumented in this encounter Care Teams Academic Program Specialist Relationship Specialty Start Date End Date Name, MD Dimitrios [address] [place] [address] PCP - General Internal Medicine 07/03/22 documented as of this encounter
--- OUTSIDE RECORDS SUMMARY | 2024-10-03 15:20 | XMS_ITS | Encounter Summary ---
Author Organization [employer] Address [address] [place] [address] 7 [place] [address] Care Team Providers Care Concrete Mixer Name Role Phone Name, Dimitrios VYAS Primary Care Provider [phone] Reason for Visit * Reason Comments Med Refill Encounter Details Date Type Department Care Team (Late Contact Info) Description 01/30/2023 Refill [facility] [address] [place] [address] [phone] NameiDmitrios MD [address] [place] [address] [phone] Social History Tobacco Use Types Packs/Day Years [...] Description 01/11/2025 9:45 AM EDT Office Visit [facility] [address] [place] [address] [phone] Dimitrios Cook MD [address] [place] [address] [phone] documented as of this encounter Visit Diagnoses Not on filedocumented in this encounter Care Teams Concrete Mixer Relationship Specialty Start Date End Date Name, MD Dimitrios [address] [place] [address] PCP - General Internal Medicine 07/03/22 documented as of this encounter
--- OUTSIDE RECORDS SUMMARY | 2024-10-03 15:20 | XMS_ITS | Encounter Summary ---
Author Organization [employer] Address [address] 7[address] [place] [address] Care Team Providers Care Group Chief Operator Name Role Phone Name, Dimitrios VYAS Primary Care Provider [phone] Reason for Visit * Reason Onset Date Comments Nurse Triage 03/15/2024 Encounter Details Date Type Department Care Team ([facility] st Contact Info) Description 03/15/2024 Telephone [facility] [address] [place], [place] [phone] Name, MD Dimitrios [address] [place] [address] Nurse Triage Social History Tobacco Use Types [...] fever. Pt will be going away to [place] to be with son for a week. Leaving this Thursday. Pt is advised to come to [facility] today to be seen by [...] Description 01/11/2025 9:45 AM EDT Office Visit [facility] [address] [place] [address] Name, MD Dimitrios [address] [place] [address] documented as of this encounter Visit Diagnoses Not on filedocumented in this encounter Additional Health Concerns Assessment Noted Time PHQ-9 Depression Total Score: 0 08/19/19 24 11:21 AM EDT documented as of this encounter Care Teams Group Chief Operator Relationship Specialty Start Date End Date Name, MD Dimitrios [address] [place] [address] PCP - General Internal Medicine 07/03/22 documented as of this encounter
--- OUTSIDE RECORDS SUMMARY | 2024-10-03 15:20 | XMS_ITS | Clinical Summary ---
Author Organization [employer] Address [address] [facility] 7t [place] [address] Care Team Providers Care Spinning Bath Patroller Name Role Phone Name, Dimitrios VYAS Primary Care Provider [phone] Allergies Active Allergy Reactions Criticality Noted Date [...] ACS (acute coronary syndrome) 11/13/2023 Non-ST elevation [place] (NSTEMI) 11/13/2023 Fall 11/13/2023 Recurrent UTI 11/13/2023 [...] Type Department Care Team Description 09/28/2024 Telephone [facility] [address] [place] [address] Chester Baxter [place] december recalls 09/22/2024 10:30 AM EDT Office Visit [facility] [address] [place] [address] Dimitrios Cook MD Primary hypertension (Primary Dx); Paroxysmal atrial fibrillation (CMS/HCC); Recurrent UTI; Osteopenia, unspecified location 09/22/2024 Travel 09/20/2024 Telephone [facility] [address] [place] [address] Puja Amin [place] chartprep 09/20/2024 Telephone [facility] [address] [place] [address] Puja Amin [place] 09/14/2024 Refill [facility] [address] [place], [place] [phone] Dimitrios Cook MD Primary hypertension from Last 3 Months Immunizations Name Administration [...] Description 01/11/2025 9:45 AM EDT Office Visit [facility] [address] [place] [address] Name, MD Dimitrios [address] [place] [address] Health Maintenance Due Date Last Done Comments [...] Blood Count 9.5 4.8 - 10.8 X10*3/uL [facility] Red Blood Count 4.19(L) 4.20 - 5.50 X10*6/uL [facility] Hemoglobin 13.5 12.0 - 16.0 g/dl [facility] Hematocrit 40.8 37.0 - 47.0 % [facility] Mean Corpuscular Volume 97.4 80.0 - 98.0 fL [facility] Mean Corpuscular Hemoglobin 32.2 27.0 - 33.0 pg [facility] Mean Corpuscular HGB Conc 33.1 31.0 - 35.0 g/dl [facility] Red Cell Distribution Width 14.5 11.0 - 16.0 % [facility] Platelet Count 283 160 - 400 X10*3/uL [facility] Mean Platelet Volume 12.8(H) 9.4 - 12.3 fL [facility] Neutrophils Percent Auto 82.1(H) 45 - 73 % [facility] Imm Gran Pct Auto 1.2(H) 0.0 - 0.4 % [facility] Lymphocytes Percent Auto 12.2(L) 20 - 40 % [facility] Monocytes Percent Auto 2.7 2 - 11 % [facility] Eosinophils Percent Auto 1.1 0 - 4 % [facility] Basophils Percent Auto 0.7 0 - 2 % [facility] NRBC Pct Auto 0.0 0.0 - 0.2 /100WBC [facility] Neutrophils Absolute Auto 7.8 2.0 - 8.3 x10*3/uL [facility] Imm Gran Abs Auto 0.11(H) 0.00 - 0.03 X10*3/uL [facility] Lymphocytes Absolute Auto 1.2 1.2 - 4.9 X10*3/uL [facility] Monocytes Absolute Auto 0.3 0.1 - 1.2 X10*3/uL [facility] Eosinophils Absolute Auto 0.1 0.0 - 0.4 X10*3/uL [facility] Basophils Absolute Auto 0.1 0.0 - 0.2 X10*3/uL [facility] NRBC Abs Auto 0.000 0.0 - 0.012 X10*3/uL [facility] Blood Venous blood specimen / Unknown 09/14/2024 11:04 AM EDT 09/14/2024 1:08 PM EDT us Ida Saab DEFENSIVE FIRE CONTROL SYSTEMS OPERATOR LAB BLOOD ORDERABLES Final Resul t [facility] [address] [place] [address] [phone] * (ABNORMAL) Basic Metabolic Panel (09/14/2024 11:04 AM EDT) Sodium 138 135 - 145 mmol/L [facility] Potassium 4.5 3.3 - 5.1 mmol/L [facility] Chloride 108 96 - 108 mmol/L [facility] Carbon Dioxide 21(L) 22 - 29 mmol/L [facility] Anion Gap 14 12 - 20 [facility] Urea Nitrogen (BUN) 24(H) 9 - 16 mg/dL [facility] Creatinine, Serum 0.86 0.5 - 1.4 mg/dL [facility] Estimated Glomerular Filt Rate >60 [facility] Comment:Chronic Kidney Disea se: Estimated GFR < 60 mL/min/1.50s1Rdpjle Kidney Disease: Estimated GFR < 15 mL/min/1.73m2 Glucose 89 60 - 115 mg/dL [facility] Calcium 9.6 8.4 - 10.2 mg/dL [facility] Blood Venous blood specimen / Unknown 09/14/2024 11:04 AM EDT 09/14/2024 1:08 PM EDT us Ida Saab NP LAB BLOOD ORDERABLES Final Resul t [facility] [address] [place], [place] [phone] * BI Mammogram Screening Tomosynthesis Bilateral (02/15/2024 11:05 AM EDT) Anatomical Region Laterality Modality Breast Bilateral Mammography 02/15/2024 11:0 5 AM EDT Narrative 02/26/2024 9:25 AM EDT ? [facility] ? [address] ?[place] [address] ? Mammography Report ? Signed ? Patient: Tavarez,Debbie M ?MR#: [id number] ?? 5 ? : 1935 ?Acct:[id number] ? Age/Sex: 88 / F ?ADM Date: 09/23/24 ? Loc: HO.MAMMO ? Attending Dr: Dimitrios Cook MD ? Ordering Physician: Dimitrios Cook MD ?Results: 1Negative ? Date of Service: 02/15/24 ?Follow Up: 1 Year From Orig ?? inal Mammogram ? Procedure(s): MM tomosynthesis screening BI ?? Accession Number(s): [id number] ? cc: Joyce,Dimitrios VYAS ? EXAMINATION: ?? [...] by Lindsay Cruz, DO in OV> ? 02/26/24920 ? DD/ 1105 ? TD/TT: 02/15/24 1135 ? Rock Contractor: ? Procedure Note Donotuseinterpreter, Image - 02/26/2024 [facility] [address] [place] [address] Mammography Report Signed Patient: Debbie Tavarez MMR#: [id number] 5 : 1935cct:[id number] Age/Sex: 88 / FADM Date: 02/15/24 Loc: HO.MAMMO Attending Dr: Dimitrios Cook MD Ordering Physician: Dimitrios Cookesults: 1Negative Date of Service: 02/15/24Follow Up: 1 Year From Orig inal Mammogram Procedure(s): MM tomosynthesis screening BI Accession Number(s): [id number] cc: Dimitrios Cook MD EXAMINATION: MM SCREENING [...] Lindsay Cruz DO 02/26/2024 09:21 AM EDT Dictated By: Lindsay Cruz DO Signed By: <Electronically signed by Lindsay Cruz DO in OV> 02/26/24 0921 DD/ 1105 TD/TT: 02/15/24 1135 Rock Contractor: us Dimitrios Name IMG BI PROCEDURES Edited Result - Final * (ABNORMAL) Lipid Panel, Standard (08/25/2023 9:48 AM EDT) Triglycerides 128 <150 mg/dL [facility] Comment:Desirable Triglyceri de: less than 150 mg/dLBorderline High Triglyceride 150-199 mg/dLHigh Triglyceride: 200-499 mg/dLVery High Triglyceride: greater than or equal to 5OO mg/dL Cholesterol 122 <200 mg/dL [facility] Comment:Desirable Cholestero l: less than 200 mg/dLBorderline High Cholesterol: 200-239 mg/dLHigh Cholesterol: greater than 239 mg/dL LDL Cholesterol Calculated 65 <100 mg/dL [facility] Comment:Desirable LDL: less than 100 mg/dLNear Optimal/Above Optimal LDL: 110- 129 mg/dLBorderline High LDL: 130-159 mg/dLHigh LDL: 160-189 mg/dLVery High LDL: greater than or equal to 190 mg/dL HDL Cholesterol 32(L) >40 mg/dL [facility] Comment:Desirable HDL: great er than 40 mg/dL Note: This HDL assay may give artificially low results in patients with liver disease. Blood Venous blood specimen / Unknown 08/25/2023 9:48 AM EDT 08/25/2023 12:50 PM EDT us Dimitrios Cook MD LAB BLOOD ORDERABLES Final Resul t [facility] [address] [place] [address] [phone] from Last 3 Months or Most Recently Relevant to Health Maintenance Insurance [facility] MEDICARE ADVANTAGE HMO Care Teams Spinning Bath Patroller Relationship Specialty Start Date End Date Name, MD Dimitrios [address] [place] [address] PCP - General Internal Medicine 07/03/22
--- OUTSIDE RECORDS SUMMARY | 2024-10-03 15:20 | XMS_ITS | Encounter Summary ---
Author Organization [employer] Address [address] 7[address] [place] [address] Care Team Providers Care Escalator Mechanic Name Role Phone Name, Dimitrios VYAS Primary Care Provider [phone] Reason for Visit * Reason Onset Date Comments december recalls 09/28/2024 Encounter Details Date Type Department Care Team ([facility] st Contact Info) Description 09/28/2024 Telephone [facility] [address] [place], [place] [phone] Chester Baxter [place] december recalls Social History [...] 9:45 AM EDT Office Visit [facility] [address] [place] [address] Name, MD Dimitrios [address] [place] [address] documented as of this encounter Visit Diagnoses Not on filedocumented in this encounter Additional Health Concerns Assessment Noted Time PHQ-9 Depression Total Score: 0 07/04/19 10:50 AM EST documented as of this encounter Care Teams Escalator Mechanic Relationship Specialty Start Date End Date Name, MD Dimitrios [address] [place] [address] PCP - General Internal Medicine 07/03/22 documented as of this encounter
--- OUTSIDE RECORDS SUMMARY | 2024-10-03 15:20 | XMS_ITS | Encounter Summary ---
Author Organization [employer] Address [address] [facility] [address] [place] [address] Care Team Providers Care Associate Creative Director Name Role Phone Name, Dimitrios VYAS Primary Care Provider [phone] Reason for Visit * Reason Onset Date Comments FYI 10/20/2023 Encounter Details Date Type Department Care Team ([facility] st Contact Info) Description 10/20/2023 Telephone [facility] [address] [place], [place] [phone] Name, MD Dimitrios [address] [place], [place] [phone] FYI Social History Tobacco Use Types Packs/Day [...] RN - 10/20/2023 2:20 PM EDT Noted. [facility] walk in note is in pt's chart and HDF is scheduled 11/02/23. * Telephone Encounter - Radha Taylor - 10/20/2023 12:58 PM EDT Tc from pt calling to report an increase in dosage on losartan (Cozaar) 50 MG tablet. Pt states went to [facility] walk in ([place]) for chest tightness/difficulty breathing and losartan was increased to 100 mg. Any questions/clarification, contact pt at [phone] documented in this encounter Plan of Treatment Upcoming Encounters Date Type Department Care Team (Late st Contact Info) Description 01/11/2025 9:45 AM EDT Office Visit [facility] [address] [place] [address] Name, MD Dimitrios [address] [place] [address] documented as of this encounter Visit Diagnoses Not on filedocumented in this encounter Additional Health Concerns Assessment Noted Time PHQ-9 Depression Total Score: 0 08/19/19 11:21 AM EDT documented as of this encounter Care Teams Associate Creative Director Relationship Specialty Start Date End Date Name, MD Dimitrios [address] [place] [address] PCP - General Internal Medicine 07/03/22 documented as of this encounter
--- OUTSIDE RECORDS SUMMARY | 2024-10-03 15:20 | XMS_ITS | Encounter Summary ---
Author Organization [employer] Address [address] [facility] [place] [address] Care Team Providers Care Ship Captain Name Role Phone Name, Dimitrios VYAS Primary Care Provider [phone] Reason for Visit * Reason Comments Med Refill Encounter Details Date Type Department Care Team ([facility] st Contact Info) Description 01/03/2024 Refill [facility]INE [address] [place], [place] [phone] Ida Saab NP [address] [place] [address] Social History Tobacco Use Types Packs/Day Years [...] Description 01/11/2025 9:45 AM EDT Office Visit [facility] [address] [place] [address] Name, MD Dimitrios [address] [place] [address] documented as of this encounter Visit Diagnoses Not on filedocumented in this encounter Additional Health Concerns Assessment Noted Time PHQ-9 Depression Total Score: 0 08/19/19 24 11:21 AM EDT documented as of this encounter Care Teams Ship Captain Relationship Specialty Start Date End Date NameDimitrios MD [address] [place] [address] PCP - General Internal Medicine 07/03/22 documented as of this encounter
== END 2024-10-03 15:45 | disposition home or self-care (01) ==
LOC: HO.HCS 15:16
PROVIDERS: PCP Internal Medicine Geriatric Medicine; Visit Provider Internal Medicine Cardiovascular Disease
DX: I48.0 Paroxysmal atrial fibrillation (principal); I42.9 Cardiomyopathy, unspecified
CPT/HCPCS: 93010; 99214; G2211

== ENCOUNTER → 2024-10-03 15:15 | Outpatient (BNVA) | payer MEDICARE, SELFPAY | PROVIDERS: PCP Internal Medicine Geriatric Medicine; Visit Provider Internal Medicine Cardiovascular Disease | DX: I48.0 Paroxysmal atrial fibrillation (principal); I42.9 Cardiomyopathy, unspecified | CPT/HCPCS: 93005; 99212 ==

== ENCOUNTER 2024-10-18 17:52 | Outpatient (REF) | payer MEDICARE, SELFPAY | END 2024-10-18 17:53 | disposition home or self-care (01) | LOC: HO.HHCLNP 17:52 | PROVIDERS: Visit Provider Internal Medicine | DX: N39.0 Urinary tract infection, site not specified (principal) | CPT/HCPCS: 87086 ==

== ENCOUNTER 2024-11-07 09:32 | Outpatient (REF) | payer MEDICARE, SELFPAY ==
--- OUTSIDE RECORDS SUMMARY | 2024-11-07 10:20 | XMS_ITS | Encounter Summary ---
Author Organization [employer] Address [address] [facility] 7t [place] [address] Care Team Providers Care Washer And Capper Machine Operator Name Role Phone Name, Dimitrios VYAS Primary Care Provider [phone] Encounter Details Date Type Department Care Team ([facility] st Contact Info) Description 10/19/2024 Results Follow-Up [facility] [address] [place], [place] [phone] Noa Flores MD [address] [place], [place] [phone] POCT Urinalysis, Culture, Urine, Routine Social History Tobacco Use Types Packs/Day Years [...] 9:45 AM EDT Office Visit [facility] [address] [place] [address] Name, MD Dimitrios [address] [place] [address] documented as of this encounter Visit Diagnoses Not on filedocumented in this encounter Additional Health Concerns Assessment Noted Time PHQ-9 Depression Total Score: 0 07/04/19 25 10:50 AM EST documented as of this encounter Care Teams Washer And Capper Machine Operator Relationship Specialty Start Date End Date Name, MD Dimitrios [address] [place] [phone] PCP - General Internal Medicine 07/03/22 documented as of this encounter
[2024-11-07 13:30] LABS: B Type Natriuretic Peptide 426 pg/mL (<100)
[2024-11-07 13:53] LABS: Anion Gap 12 (12-20); Blood Urea Nitrogen 28 mg/dL (9-16); Calcium 9.8 mg/dL (8.4-10.2); Carbon Dioxide 25 mmol/L (22-29); Chloride 108 mmol/L (96-108); Estimated Glomerular Filt Rate 50; Glucose Random 89 mg/dL (60-115); Potassium 4.4 mmol/L (3.3-5.1); Sodium 141 mmol/L (135-145)
== END 2024-11-07 09:33 | disposition home or self-care (01) ==
LOC: HO.HMGCLDS 09:32
PROVIDERS: PCP Internal Medicine Geriatric Medicine; Visit Provider Internal Medicine Cardiovascular Disease
DX: I48.0 Paroxysmal atrial fibrillation (principal); I42.9 Cardiomyopathy, unspecified
CPT/HCPCS: 36415; 80048; 83880

== ENCOUNTER 2024-11-08 08:57 | Outpatient (AMB) | payer MEDICARE, SELFPAY ==
--- NOTE | 2024-11-08 09:00 | A.OFFVIS_ITS ---
Vital Signs 11/08/24 09:01 Height 5 ft 2 in Weight 145 lb 8.081 oz BMI 26.6 BP 124/72 Blood Pressure Location Lt brachial Position Sitting Pulse 63 Pulse Source Monitor Intake Visit Reasons: CHF?/SOB Food Or Baggage Handling [place] Required: No Allergies hydromorphone [From DILAUDID] Allergy (Intermediate, Verified 11/08/24 09:03) ITCHY ALL OVER Medication List - Last Reconciled 11/08/24 by Swati Tinoco, BEBO-C amlodipine 10 mg PO DAILY apixaban (Eliquis) 5 mg PO BID estradiol 0.01%(0.1mg/gram) vaginal furosemide (Lasix) 20 mg PO DAILY hydroxyurea 1 cap PO TUTHSA@0900 losartan 50 mg PO BID metoprolol succinate ER 25 mg PO DAILY multivitamin 1 tab PO DAILY pravastatin 40 mg PO BEDTIME HPI HPI CHF?/SOB: Details: Debbie is an 89-year-old female presenting with a follow-up for paroxysmal atrial fibrillation management. She reports recent weight gain and exertional dyspnea when ascending stairs. Symptoms onset is recent, and causing much concern. She was seen by her oncologist, who did give her short course of low dose lasix, with mild improvement in symptoms. Lab work from 11/07/2024 indicates BNP 426, indicating fluid retention. She has a history of cardiomyopathy with normalization of EF. With her recent symptoms an echocardiogram was ordered and still pending. An EKG today has confirmed a recurrence of atrial fibrillation which is likely the cause of her symptoms. This was reviewed with her and she notes that she has been having episodes of increased heart rate with exertion but denies chest pain. Taking all meds as prescribed. Trying to maintain good activity throughout the day. [facility] Medical History (Updated 11/08/24 @ 11:39 by wSati Tinoco, [employer]ARNESS REPAIRER-C) HTN (hypertension) ACS (acute coronary syndrome) Chronic kidney disease, stage III (moderate) Dyslipidemia Glaucoma Chronic dermatitis Thrombocytopenia Surgical History Hx of partial nephrectomy History of bilateral knee replacement Family History Mother Breast cancer Brother Alzheimers disease Son Stroke Rectal adenocarcinoma Social History Household Members: Spouse and None Housing: House Alcohol intake: former Patient Tobacco Use Status: Never used Tobacco service: No Current occupational status: retired Review of Systems Const All systems reviewed & are unremarkable except as noted in HPI and below Reports weight gain ENT Denies dizziness Card Denies chest pain, Denies chest pain at rest, Denies chest pain with activity, Reports rapid heart rate, Denies pedal edema, Denies edema, Denies leg edema, Denies lightheadedness, Denies palpitations, Reports dyspnea, Reports dyspnea on exertion and Denies orthopnea Resp Denies cough, Reports dyspnea and Reports dyspnea on exertion GI Denies hematochezia and Denies change in stool character Musc Denies abnormal gait, Denies limited range of motion, Denies muscle cramps, Denies muscle weakness, Denies numbness, Denies radiating pain into limb, Denies stiffness and Denies tingling Neuro Denies abnormal gait, Denies dizziness, Denies numbness and Denies tingling Endo Denies palpitations Physical Exam Vital Signs: Last Vital Signs Pulse 63 11/08/24 09:01 BP 124/72 11/08/24 09:01 BMI result Body Mass Index 26.6 Const General: cooperative, healthy appearing, comfortable and no acute distress Orientation/consciousness: patient oriented x3 Neck Neck: Yes normal visual inspection Resp Effort & Inspection: normal respiratory effort Auscultation: clear to auscultation bilaterally, no rales, no rhonchi and no wheezes Cardio Rate: regular rate Rhythm: abnormal rhythm Heart sounds: S1 normal heart sound present, S2 normal heart sound present, no murmurs and no rubs Neuro General: patient oriented x3 Extrem General: Yes normal to inspection, No no pedal edema and No calf tenderness Psych Appearance: grossly normal Mental Status: mental status grossly normal Speech and movement: Normal speech and movement present Office Procedures EKG Details: Today, read by me, atrial fibrillation, left axis deviation, left bundle branch block, rate 63, QTC 450 ms [id number], Complete Assessment & Plan Assessment & Plan (1) SOB (shortness of breath) on exertion: Code(s): R06.02 - Shortness of breath Category: Medical Plan: Recent symptoms of shortness of breath with exertion and weight gain up to 7 lb for unclear reason. She has been on a short course of diuretics with some improvement in breathing and weight. Recent BNP elevated at 426. She does not appear fluid overloaded on examination today. EKG done today is showing atrial fibrillation with left bundle branch block, rate 63. She has a history of paroxysmal AFib which had been suppressed with metoprolol. At this time will have her stop metoprolol and start on amiodarone with slow loading of 200 mg b.i.d. for 1 month then reducing dose to 200 mg once daily. Her remaining Lasix can be used p.r.n. for weight gain greater than 3 lb in a day or increased shortness of breath. Will arrange for office EKG in 1 week. Office visit in 1 month. If she continues to be in atrial fibrillation then cardioversion will be considered at that time. (2) PAF (paroxysmal atrial fibrillation): Code(s): I48.0 - Paroxysmal atrial fibrillation Category: Medical Plan: History of paroxysmal atrial fibrillation with reoccurrence as above. Now starting on amiodarone for rhythm control. Will stop metoprolol. She has a history of sinus bradycardia. The potential need for pacemaker if she does have issues with significant bradycardia reviewed with her and she states understanding. Continue Eliquis for anticoagulation. (3) Cardiomyopathy: Comment: Suspect stress-induced cardiomyopathy Code(s): I42.9 - Cardiomyopathy, unspecified Category: Medical Plan: History of cardiomyopathy, stress-induced. Last echocardiogram 01/21/2024 showed EF 60-65% with grade 3 diastolic dysfunction. With her recent change in symptoms a repeat echocardiogram is pending. We will be stopping metoprolol. Continue losartan for neurohormonal modulation. (4) HTN (hypertension): Code(s): I10 - Essential (primary) hypertension Category: Medical Qualifiers: Hypertension type: primary hypertension Qualified Code(s): I10 - Essential (primary) hypertension Plan: Blood pressure goal less than 130/80. Well controlled at this time. Continue amlodipine and losartan. Plan During the visit, I reviewed with the patient the diagnosis of atrial fibrillation, its management, and the plan to discontinue metoprolol while initiating amiodarone. This change aims to restore rhythm control and address symptomatology, specifically shortness of breath and fluid retention. The potential progression to electrical cardioversion and the likelihood for pacemaker implantation were explained, based on heart rate responses to treatment. Consent was obtained after discussing the procedural nature of cardioversion and medication side effects. The follow-up includes an echocardiogram and EKG to assess treatment efficacy and heart rate stability. I emphasized the continuation of Eliquis for stroke prevention, and the use of Lasix based on fluid assessment and weight monitoring. The patient is informed of the critical nature of weight tracking and fluid management. Tablet Medications: New amiodarone Take 1 tab twice daily for 1 month - then reduce dose to 1 tab daily 200 mg PO BID 60 tabs 1RF Discontinued metoprolol succinate ER Discontinued Reason: Change Referral Type 25 mg PO DAILY Patient Instructions: - Start taking amiodarone as prescribed: twice a day for one month, then once a day. - Stop metoprolol when you begin amiodarone. - Continue taking Eliquis as prescribed. - Track your weight daily. Use Lasix if your weight increases by 2-3 pounds. - Limit your fluid intake to roughly 48 ounces per day. - Avoid adding salt to your food. - Monitor for any new or worsening symptoms of shortness of breath or heart racing. - Call us if you notice any side effects, weight changes, or increased swelling. - Attend follow-up appointments for your EKG and echocardiogram as scheduled. - Keep this guide handy for instructions and medication scheduling. Patient was informed and verbally consented to the use of an ambient scribe for clinic note documentation during this visit. Visit time spent on chart review, interview, assessment, orders, documentation. Coding Level of Care Code Est Pt Level 4 (15990) Complex EM visit Add On G2211 Diagnoses SOB (shortness of breath) on exertion R06.02 PAF (paroxysmal atrial fibrillation) I48.0 Cardiomyopathy I42.9 Primary hypertension I10 Hypertension type: primary hypertension CPT Codes EKG - CPT: 21195-[id number], Complete ([id number]) Time Spent (min) 36
[2024-11-08 09:01] VITALS: BP 124/72; PULSE 63; BMI 26.6
--- OUTSIDE RECORDS SUMMARY | 2024-11-08 09:33 | XMS_ITS | Encounter Summary ---
Author Organization [employer] Address [address] [place] [address] Care Team Providers Care Forming And Assembling Supervisor Name Role Phone Name, Dimitrios VYAS Primary Care Provider [phone] Encounter Details Date Type Department Care Team ([facility] st Contact Info) Description 10/19/2024 Results Follow-Up [facility] [address], [place] [phone] Noa Flores MD [address], [place] [phone] POCT Urinalysis, Culture, Urine, Routine Social History [...] 9:45 AM EDT Office Visit [facility] [address] [place] [address] Name, MD Dimitrios [address] [place] [address] documented as of this encounter Visit Diagnoses Not on filedocumented in this encounter Additional Health Concerns Assessment Noted Time PHQ-9 Depression Total Score: 0 07/04/19 25 10:50 AM EST documented as of this encounter Care Teams Forming And Assembling Supervisor Relationship Specialty Start Date End Date Name, MD Dimitrios [address] [place] [id number] PCP - General Internal Medicine 07/03/22 documented as of this encounter
== END 2024-11-08 09:44 | disposition home or self-care (01) ==
LOC: HO.HCS 08:57
PROVIDERS: PCP Internal Medicine Geriatric Medicine; Visit Provider Nurse Practitioner Family
DX: R06.02 Shortness of breath (principal); I48.0 Paroxysmal atrial fibrillation; I42.9 Cardiomyopathy, unspecified; I10 Essential (primary) hypertension
CPT/HCPCS: 93010; 99214; G2211

== ENCOUNTER → 2024-11-08 08:57 | Outpatient (BNVA) | payer MEDICARE, SELFPAY | PROVIDERS: PCP Internal Medicine Geriatric Medicine; Visit Provider Nurse Practitioner Family | DX: I48.0 Paroxysmal atrial fibrillation (principal); R06.02 Shortness of breath; I42.9 Cardiomyopathy, unspecified; I10 Essential (primary) hypertension; I44.7 Left bundle-branch block, unspecified; R94.31 Abnormal electrocardiogram [ECG] [EKG] | CPT/HCPCS: 93005; 99212 ==

== ENCOUNTER → 2024-11-16 09:07 | Outpatient (BNVA) | payer MEDICARE, SELFPAY | PROVIDERS: PCP Internal Medicine Geriatric Medicine; Visit Provider Nurse Practitioner Family | DX: Z13.89 Encounter for screening for other disorder (principal) ==